=== PATIENT | female | born 1950 | race Caucasian/White ===

== ENCOUNTER 2022-07-04 19:47 | Inpatient (IN) | payer MEDICARE, MEDICAID, SELFPAY ==
[2022-07-04] VITALS (30 sets, daily range): BP systolic 99–169; BP diastolic 66–141; PULSE 88–130; RESP 13–27; TEMP 36.6–37.7; O2SAT 85–100
--- NOTE | ~2022-07-04 | US_ITS ---
EXAMINATION:US venous doppler LE BI INDICATION:Leg edema TECHNIQUE: Multiple grayscale, color flow and Doppler images of the ] and left lower extremity deep v enous systems were obtained and reviewed. COMPARISON:No prior studies for comparison. FINDINGS: The common femoral, superficial femoral and popliteal veins demonstrate normal respiratory variation, augmentation and compressibility. Color flow is also seen within the posterior tibial, pe roneal, greater saphenous and profunda veins. Evaluation of the right posterior tibial, peroneal and gastrocnemius veins limited by overlying cast and bandage. IMPRESSION: 1: No lower extremity deep venous thrombosis. Reviewed, dictated and finalized at location A.
--- NOTE | ~2022-07-04 | CT_ITS ---
EXAMINATION: CT brain wo con DATE: 07/04/2022 20:47 INDICATION: altered mental status . TECHNIQUE: Computed tomography (CT) of the head was performed without intravenous contrast. The mA wa s adjusted according to patient size. Iterative reconstruction technique was employed. The dose-lengt h product was 605.33 mGy-cm. COMPARISON: None FINDINGS: No acute intracranial hemorrhage or extra-axial fluid collection. No hydrocephalus, mass, or herniation. No acute ischemic infarct. Unremarkable dural venous sinus attenuation. No acute osseous abnormality. Right sphenoid retention cyst or polyp. Aerated secretions in the left sphenoid. Small osteoma right anterior ethmoid air cell. Remaining aerated spaces are clear. Fat stranding about the left parotid and external auditory meatus and soft tissues of the ear. Modera te atrophy and chronic white matter change. Atherosclerotic intracranial calcification. Bilateral akanksha s replacements. IMPRESSION: No acute intracranial process. Possible left parotiditis, with inflammation extending to the external auditory meatus and left inferior. Reviewed, dictated and finalized at location K. IMPRESSION: No acute intracranial process. Possible left parotiditis, with inflammation ext ending to the external auditory meatus and left inferior.
--- NOTE | ~2022-07-04 | US_ITS ---
EXAMINATION: US renal BI DATE: 07/08/2022 10:42 INDICATION: Intrinsic renal disease with chronic kidney disease stage III. TECHNIQUE: Multiple ultrasound grayscale images of the kidneys were obtained. COMPARISON: None. FINDINGS: The right kidney measures 11.9 x 5.4 x 4.6 cm. The left kidney is not visualized. The right kidney de monstrates normal parenchymal echogenicity. There is no right-sided hydronephrosis. The bladder is de compressed by a Dennison catheter. IMPRESSION: 1. Normal right kidney size. No right-sided hydronephrosis. 2. Left kidney not visualized due to the patient's body habitus. Reviewed, dictated and finalized at location A.
--- NOTE | ~2022-07-04 | US_ITS ---
EXAMINATION: US retroperitoneal duplex ltd DATE: 07/08/2022 10:41 INDICATION: Hypertension. TECHNIQUE: Multiple grayscale, color Doppler, and pulsed Doppler images of the kidneys and renal yolanda raulito were obtained. COMPARISON: None. FINDINGS: The aorta peak systolic velocity is 77 cm/s. The right renal artery peak systolic velocity is 77 cm/s in the proximal segment, 68 cm/s in the mid segment, and 33 cm/s in the distal segment. The left kesha al artery is not well visualized. IMPRESSION: 1. No Doppler evidence of right-sided renal artery stenosis. 2. Left renal artery not well visualized. Reviewed, dictated and finalized at location A.
--- NOTE | ~2022-07-04 | XR_ITS ---
EXAMINATION: XR chest 1V portable Exam Date/Time: 07/04/2022 21:20 CDT HISTORY: AMS Comparison: None available. RESULT: Lines, tubes, and devices: Left chest pacer with intact leads. Cholecystectomy clips. Lungs and pleura: Low volumes. Senescent change, otherwise clear. Cardiomediastinal silhouette: Stable. Other: No acute osseous or upper abdominal finding. IMPRESSION: No acute cardiopulmonary process. Reviewed, dictated and finalized at location K.
--- NOTE | ~2022-07-04 | XR_ITS ---
EXAM: XR knee LT 3V DATE: 07/04/2022 21:28 HISTORY: Knee pain. fx 2 months ago? . COMPARISON: None available. FINDINGS: Decreased mineralization. Transverse, mildly angulated fracture at the metadiaphysis of th e proximal left fibula, with evidence of healing change. No acute fracture or dislocation. No lytic o r blastic lesion. Osteoarthritis of the knee, severe in the medial compartment. No erosion or periost eal change. Soft tissues within normal limits. Small volume joint fluid. IMPRESSION: No acute osseous finding in the left knee. Healing proximal left fibular fracture. Reviewed, dictated and finalized at location K. IMPRESSION: No acute osseous finding in the left knee. Healing proximal left fi bular fracture.
--- NOTE | ~2022-07-04 | XR_ITS ---
EXAM: XR pelvis 1-2V DATE: 07/04/2022 21:28 HISTORY: AMS . COMPARISON: None available. FINDINGS: IVC filter. Decreased mineralization. No fracture or dislocation. No lytic or blastic lesi on. Mild degenerative change in the lumbar spine and bilateral hips. No erosion or periosteal change. Pelvic phleboliths. IMPRESSION: No acute osseous finding in the pelvis. Reviewed, dictated and finalized at location K.
--- NOTE | ~2022-07-04 | CT_ITS ---
EXAMINATION: CT facial bones w con DATE: 07/05/2022 01:47 INDICATION: Left facial swelling. TECHNIQUE: Computed tomography (CT) of the facial bones and maxillofacial region was performed with 7 5 mL Omnipaque 350 intravenous contrast. Automated exposure control and iterative reconstruction tech Sonocineque were employed. The dose-length product was 531.05 mGy-cm. COMPARISON: None. FINDINGS: There are likely changes of ocular lens replacement surgeries. There is plaque in the proxi mal internal carotid arteries with less than 50% stenosis relative to normal distal artery lumen diam eters. There is enlargement of the left parotid gland with surrounding fat stranding. There is fat st randing adjacent to right parotid gland. No sialolith. There are no pathologically enlarged lymph nod es. There is mild mucosal thickening in the paranasal sinuses. There is moderate cervical spondylosis . IMPRESSION: 1. Bilateral parotiditis, left worse than right. Reviewed, dictated and finalized at location A.
--- NOTE | ~2022-07-04 | XR_ITS ---
EXAM: XR ankle RT min 3V DATE: 07/04/2022 21:28 HISTORY: Fracture May 12 . COMPARISON: None available. FINDINGS: Detail is obscured by cast material. Oblique fracture of the distal right fibula extending roughly to the level of the joint (Lopez B fracture type). Possible transverse medial malleolus and longitudinally oriented posterior malleolar fractures, difficult to determine positively due to overl annabelle artifact. Plantar enthesopathy. IMPRESSION: Oblique distal right fibular fracture. Possible posterior and medial malleolar fractures. Reviewed, dictated and finalized at location K. IMPRESSION: Oblique distal right fibular fracture. Possible posterior and media l malleolar fractures.
--- NOTE | 2022-07-04 20:21 | ECG_ITS ---
Measurements Intervals [place] Rate: 115 P: MD: 0 QRS: -67 QRSD: 148 T: 39 QT: 348 QTc: 483 Interpretive Statements ATRIAL FIBRILLATION WITH RAPID VENTRICULAR RESPONSE VENTRICULAR PREMATURE COMPLEX RIGHT BUNDLE BRANCH BLOCK LEFT ANTERIOR FASCICULAR BLOCK ABNORMAL ECG NO PREVIOUS ECG AVAILABLE FOR COMPARISON Electronically Signed On 07-04-2022 21:51:48 CDT by Roberto Maddox D.O.
--- NOTE | 2022-07-04 20:24 | ED.GENADULT ---
HPI - General Adult General Chief complaint: Altered Mental Status Stated complaint: altered mental status all day Time Seen by Provider: 07/04/22 19:57 History of Present Illness HPI narrative: This is a 72-year-old female presenting ED for altered mental status. The patient has had a complicated clinical course over the last 2 months. On May 12 patient suffered a closed by malleolar fracture of the right lower extremity. While she was in rehab with she caught Covid on approximately May 20. On May 26 she was diagnosed with a MRSA infection blood and then later went on to develop endocarditis. She had recently completed her course of antibiotics for those illnesses and then today developed altered mental status since this morning. Patient is typically in 0 x 4. At this time she responds to voice and is A&O x1. She is unable to provide any information to focus our exam. History is taken from the patient's daughter is at bedside. Related Data Allergies Allergy/AdvReac Type Severity Reaction Status Date / Time Penicillins Allergy Intermediate Swelling Verified 07/04/22 20:45 Review of Systems Review of Systems: ROS unobtainable: Yes unobtainable due to medical condition [facility] Past Medical History Medical History (Updated 07/05/22 @ 00:34 by Abraham Anderson MD) Atrial fibrillation Bimalleolar fracture of right ankle Bipolar disorder Endocarditis Hypertension MRSA bacteremia Obesity Type 2 diabetes mellitus Social History Social History (Updated 07/04/22 @ 23:33 by Dedra Devlin PA-C) Social History: Surrogate medical decision maker: alvaro Milligan. Code status: Do not resuscitate. Additional occupation/education comments: Seamstress. Exam Narrative: APPEARANCE: Patient is laying in bed supine. She is responsive to voice. She is difficult to understand. A&O x1 Head atraumatic. EYES: PERRLA/EOMI, NOSE: Normal no drainage NECK: Supple, Trachea midline RESPIRATORY: scattered expiratory rhonchi CARDIOVASCULAR: S1S2 appreciated, tachycardic ABDOMINAL: abdomen is obese, soft, nontender nondistended MUSCULOSKELETAl: patient has a short-leg cast on her right leg. She is complaining of pain to her left knee which is chronic. NEURO: Alert. Moving 4/4 extremities SKIN:: Skin is warm and dry with no evidence of breakdown PSYCHIATRIC: Normal affect Course Course Emergency Course: this is a 72-year-old woman presenting ED with altered mental status. Over last 2 months she has had a very complicated clinical course after sustaining a right ankle fracture. He is now presenting today altered with tachycardia and a relative hypotension. Differential is broad but no infectious cause of her current encephalopathy is most likely. She has been ward-cultured. She will be given 30 cc/kilogram of normal saline. CTs of the head, chest, pelvis, left knee and right ankle x-rays have been obtained. Vital Signs Vital signs: Vital Signs Pulse Oximetry 99 07/04/22 19:51 Temperature 99.8 F H 07/04/22 20:46 Pulse Rate 90 07/05/22 00:02 Respiratory Rate 18 07/05/22 00:02 Blood Pressure 122/91 H 07/05/22 00:02 Pulse Oximetry 100 07/05/22 00:02 Oxygen Delivery Room Air 07/04/22 19:52 Medical Decision Making MDM Narrative Medical decision making narrative: This is a 72-year-old woman presenting ED with altered mental status. Over last 2 months she has had a very complicated clinical course after sustaining a right ankle fracture. He is now presenting today altered with tachycardia and a relative hypotension. Differential is broad but no infectious cause of her current encephalopathy is most likely. She has been ward-cultured. She will be given 30 cc/kilogram of normal saline. CTs of the head, chest, pelvis, left knee and right ankle x-rays have been obtained. Imaging is reviewed below. Patient's lab work was seen for elevated white blood cell cou
[2022-07-04 20:39] LABS: Basophils Absolute Auto 0.1 K/mm3 (0.0-0.1); Basophils Percent Auto 0.6 % (0.2-1.2); Eosinophils Percent Auto 0.1 % (0-4.4); Hemoglobin 12.9 g/dL (12.0-15.0); Immature Granulocyte Absolute 0.15 K/mm3 (0.00-0.031); Immature Granulocyte Percent A 0.9 % (0-0.5); Lymphocytes Absolute Auto 2.31 K/mm3 (0.9-3.2); Lymphocytes Percent Auto 14.5 % (18.3-44.2); Mean Corpuscular HGB Conc 33.1 g/dl (32-36); Mean Corpuscular Hemoglobin 35.1 pg (26-34); Mean Platelet Volume 13.6 fl (7.4-10.4); Monocytes Absolute Auto 1.8 K/mm3 (0.1-0.6); Monocytes Percent Auto 11.3 % (2.6-8.5); Neutrophils Absolute Auto 11.6 K/mm3 (1.3-6.7); Neutrophils Percent Auto 72.6 % (45.5-73.1); Nucleated Red Blood Cells Perc 0.3 % (0.0-0.2); Platelet Count Result 257 k/mm3 (150-375); Red Blood Count 3.68 M/mm3 (4.2-5.4)
[2022-07-04 20:48] LABS: INR 1.8; Lactic Acid Reflex 1.7 mmol/L (0.7-2.0); Prothrombin Time 20.1 Seconds (11.1-14.7)
[2022-07-04 20:49] LABS: Partial Thromboplastin Time 44.2 SECONDS (22.3-36.8)
[2022-07-04 20:51] LABS: Alanine Aminotransferase 22 U/L (6-35); Albumin Level 3.1 g/dL (3.5-5.1); Alkaline Phosphatase 112 U/L (38-126); Anion Gap 10 mmol/L (8-16); Aspartate Amino Transferase 24 U/L (14-36); Bilirubin,Total 0.7 mg/dL (0.2-1.3); Blood Urea Nitrogen 35 mg/dL (7-17); Calcium 10.1 mg/dL (8.4-10.2); Carbon Dioxide 21 mmol/L (22-30); Chloride 105 mmol/L (98-107); Estimated Glomerular Filt Rate 29; Glucose 165 mg/dL (65-110); Lipase 107 U/L (23-300); Sodium 136 mmol/L (137-145)
--- NOTE | 2022-07-04 20:55 | PC.NURSE ---
pt in CT.
[2022-07-04 21:02] LABS: Anisocytosis 1+ (NORMAL); Platelet Estimate Adequate (Adequate)
[2022-07-04 21:18] LABS: CRP 21.9 mg/dL (<1.0); Troponin I 0.161 ng/mL (0.000-0.034)
[2022-07-04 23:20] LABS: SARS-CoV-2 RNA PCR Negative
--- NOTE | 2022-07-04 23:30 | PM.IMHP ---
H&P: HPI History of Present Illness Date/Time: 07/04/22 23:30 Chief Complaint: Altered mental status. Narrative: This is a 72-year-old female with paroxysmal atrial fibrillation, diabetes, hypertension, and several other comorbidities who presented to the ED via EMS from [facility] for evaluation of altered mental status. Her daughter Serena provides a majority of the history given her clinical condition. She has been at the rehab center for 2 months after a lengthy stay at [facility] in [place] in which she was treated for MRSA bacteremia with right parotiditis and possible endocarditis. In fact she just finished IV vancomycin just 2 days ago. She has not been able to walk for couple of months either as she has a right bimalleolar ankle fracture. According to the daughter, she has gone down hill the past couple of months but she has not been in great health for many years. Today she was reportedly okay upon waking however as the afternoon progressed she started to become altered and lethargic. On arrival to the emergency department she had a low-grade temperature just shy of 100?. Pertinent labs include a white blood cell count of 16.0, sodium 136, BUN 35, creatinine 1.70, glucose 165, lactic acid 1.7, troponin 0.161, CRP 21.6. Urine was cloudy with 1+ leukocyte esterase, 51 to 75 WBCs, trace bacteria, budding yeast, and 30 to [address] showed no acute intracranial process but did note possible left parotiditis and on exam she did indeed have tenderness and swelling over the left parotid gland. Chest x-ray was unremarkable. She has since been admitted for IV antibiotics for suspected parotiditis. Lengthy discussion had with the patient's daughter, Serena, and at this time she does not wish for her mother to be transferred back to [facility]. Given the patient's decline in health, she would not want any heroic measures and she indicates that the patient is to be a do not resuscitate. At the time my evaluation the patient is alert and tries answer some questions which is improved according to the daughter. She complains of pain in the knees though she has had negative imaging. She also complains of pain near the left parotid gland and significant tenderness to even and mild palpation in the area. She is not having any difficulties swallowing and she does not feel short of breath. She also denies chest pain, abdominal pain, nausea, vomiting, and dysuria. Review of Systems Review of Systems: A review of systems is unable to be obtained accurately given her confusion. [facility] Past Medical History Medical History (Updated 07/05/22 @ 17:03 by Dedra Devlin PA-C) Bimalleolar fracture of right ankle Bipolar disorder Breast cancer Coronary artery disease Endocarditis Hypertension MRSA bacteremia Paroxysmal atrial fibrillation Type 2 diabetes mellitus Surgical History Surgical History (Updated 07/05/22 @ 17:03 by Dedra Devlin PA-C) History of bilateral mastectomy History of cholecystectomy History of hysterectomy History of permanent cardiac pacemaker placement Family History Family History (Updated 07/05/22 @ 17:04 by Dedra Devlin PA-C) Other Diabetes mellitus Hypertension Social History Social History Social History: Surrogate medical decision maker: alvaro Milligan. Code status: Do not resuscitate. Smoking status: Never smoker Substance use: never Substance use type: does not use Additional occupation/education comments: Seamstress. Spiritual care concerns: No Meds Home Medications and Allergies Home Medications Medication Instructions Recorded Confirmed Type Saccharomyces boulardii 250 mg 250 mg PO BID 07/05/22 07/05/22 History capsule alprazolam 0.5 mg tablet 0.5 mg PO HS 07/05/22 07/05/22 History aluminum-mag hydroxide-simethicone 30 ml PO Q6H PRN Heartburn 07/05/22 07/05/22 History 225
[2022-07-04 23:55] LABS: Add Urine Microscopic? YES; Appearance Urine Cloudy (Clear); Bilirubin Urine 1+ (Negative); Blood Urine Negative (Negative); Color Urine Brown (Yellow); Glucose Urine UA Negative (Negative); Ketones Urine Negative (Negative); Leukocyte Esterase Ur 1+ LEU/UL (Negative); Nitrate Urine Negative (Negative); Protein Urine 1+ mg/dL (Negative); Specific Grav Ur >= 1.030 (1.001-1.035); Urobilinogen Urine 0.2 mg/dL (<2.0); pH Urine 5.5 (5.0-9.0)
[2022-07-05] VITALS (28 sets, daily range): BP systolic 91–147; BP diastolic 62–117; PULSE 79–129; RESP 12–24; TEMP 36.4–36.9; O2SAT 94–100; BMI 59.8
[2022-07-05 00:08] LABS: Bacteria Urine Trace /hpf; Budding Yeast Urine Present /hpf; Hyaline Casts Urine 30-49 /lpf; Mucus Urine Rare /lpf; Squamous Epithelial Cell Urine Rare /hpf (Few); WBC Urine 51-75 /hpf
--- NOTE | 2022-07-05 01:23 | PC.NURSE ---
pt in CT.
--- NOTE | 2022-07-05 02:35 | ADMGEN ---
This patient, Kenya Oropeza, was admitted to IMU Room 204-01 on 07/05/22 at 0150. Patient/family oriented to hospital policies and general routines including ID bracelet, bed and alarms, visiting hours, pain management, procedures, bathroom and other care routines, personal items, smoking policy, room service/diet, and visiting hours. Information on how to activate the Rapid Response Team has been discussed. Patient/Family are encouraged to report perceived risks to care and to ask questions if they do not understand what they are told or what they should do.
[2022-07-05 03:29] LABS: Hemoglobin A1C 4.9 % (<5.7)
[2022-07-05 05:15] LABS: Ammonia < 9 umol/L (9-30)
[2022-07-05 05:19] LABS: Iron 27 ug/dL (37-170)
[2022-07-05 05:25] LABS: Hemoglobin 13.4 g/dL (12.0-15.0); Mean Corpuscular HGB Conc 31.2 g/dl (32-36); Mean Corpuscular Hemoglobin 35.7 pg (26-34); Mean Corpuscular Volume 114.7 fl (80-100); Mean Platelet Volume 13.1 fl (7.4-10.4); Platelet Count Result 211 k/mm3 (150-375); Red Blood Count 3.75 M/mm3 (4.2-5.4); White Blood Count 14.1 K/mm3 (4.5-10.0)
[2022-07-05 05:29] LABS: Percent Iron Saturation 16 % (20-50)
[2022-07-05] MEDS: SODIUM CHLORIDE 0.9% IV 1,000 ML 100 ML IV CONT ×2 (05:31→17:56)
[2022-07-05 05:50] LABS: Anion Gap 13 mmol/L (8-16); Blood Urea Nitrogen 33 mg/dL (7-17); Calcium 10.1 mg/dL (8.4-10.2); Carbon Dioxide 15 mmol/L (22-30); Chloride 110 mmol/L (98-107); Estimated CRCL calculation 48 ml/min; Estimated Glomerular Filt Rate 37; Glucose 148 mg/dL (65-110); Magnesium 2.1 mg/dL (1.6-2.3); Sodium 138 mmol/L (137-145)
[2022-07-05 05:54] LABS: Band Neutrophils Percent 16 % (0-6); Blastocytes 2 %; Eosinophils Absolute Manual 0.14 K/mm3 (0.02-0.5); Eosinophils Percent Manual 1 % (0-4); Lymphocytes Absolute Manual 1.69 K/mm3 (1.1-4.5); Monocytes Absolute Manual 0.28 K/mm3 (0.1-0.90); Monocytes Percent Manual 2 % (3-9); Myelocytes Percent 1 %; Neutrophils Absolute Manual 11.56 K/mm3 (1.7-7.2); Neutrophils Percent Manual 66 % (46-73); Platelet Estimate Adequate (Adequate); Total Cells Counted 100
[2022-07-05 05:55] LABS: Anisocytosis 1+ (NORMAL); Giant Platelets Present; Macrocytosis 1+ (NORMAL); Ovalocytes 1+ (NORMAL)
[2022-07-05 05:57] LABS: Burr Cells 1+ (NORMAL); Crenated RBC 1+ (NORMAL); Hypersegmented Neutrophils Present; Smudge Cells FEW; Tear Drop Cells 1+ (NORMAL)
[2022-07-05 05:59] LABS: Potassium 4.9 mmol/L (3.4-5.0)
[2022-07-05 07:51] LABS: Glucose Point of Care 141 mg/dl (65-105)
[2022-07-05] MEDS: ONDANSETRON INJ 4 MG/2 ML VIAL IV PUSH (08:14)
[2022-07-05] MEDS: ENOXAPARIN 40 MG/0.4 ML SYRINGE SUB-Q (08:14)
[2022-07-05 08:51] LABS: Troponin I 0.261 ng/mL (0.000-0.034)
--- NOTE | 2022-07-05 09:37 | ECG_ITS ---
Measurements Intervals [place] Rate: 83 P: 87 [place]: 176 QRS: -68 QRSD: 113 T: 108 QT: 353 QTc: 416 Interpretive Statements SINUS RHYTHM LEFT AXIS DEVIATION CONSIDER INFERIOR INFARCT, AGE INDETERMINATE ANTEROLATERAL INFARCT, AGE INDETERMINATE ST-T WAVE ABNORMALITY IN HIGH LATERAL LEADS- CONSIDER ISCHEMIA ABNORMAL ECG COMPARED TO ECG 07/04/2022 20:25:22 SINUS RHYTHM NOW PRESENT MYOCARDIAL INFARCT FINDING NOW PRESENT Electronically Signed On 07-05-2022 13:43:26 CDT by Roberto Maddox D.O.
[2022-07-05 11:49] LABS: Glucose Point of Care 151 mg/dl (65-105)
--- NOTE | 2022-07-05 11:51 | PM.CNCAR ---
Assessment and Plan Assessment and plan (1) Atrial fibrillation: Code(s): I48.91 - Unspecified atrial fibrillation Status: Acute (2) Sepsis: Code(s): A41.9 - Sepsis, unspecified organism Status: Acute (3) Type 2 diabetes mellitus: Code(s): E11.9 - Type 2 diabetes mellitus without complications Status: Acute (4) Elevated troponin: Code(s): R77.8 - Other specified abnormalities of plasma proteins Status: Acute (5) Parotiditis: Code(s): K11.20 - Sialoadenitis, unspecified Status: Acute (6) Metabolic encephalopathy: Code(s): G93.41 - Metabolic encephalopathy Status: Acute (7) Hypertension: Code(s): I10 - Essential (primary) hypertension Status: Acute Plan No signs or symptoms consistent with acute coronary syndrome at this time. Elevated troponins likely in the setting of atrial fibrillation with RVR. Patient remains in sinus rhythm since this morning. Will continue to monitor on telemetry. Recommend to start therapeutic anticoagulation given the atrial fibrillation if no bleeding issues. Would restart home dose of sotalol. Obtain transthoracic echocardiogram. History of Present Illness History of Present Illness Consult date/time: 07/05/22 11:51 Requesting physician: Rosaura Moise DO Consult reason: atrial fibrillation Reason For Visit: sepsis/uti Narrative: Patient is a 72-year-old female admitted with acute encephalopathy and parotiditis. Limited history is obtained from patient, patient can state her name and date of , but does not answer other questions. No family at bedside present. On admission patient noted with mildly elevated troponins, and initial ECG showed atrial fibrillation with RVR with right bundle branch block. Patient converted to sinus and has been in sinus rhythm since this morning. Patient was admitted at [facility] in May. Review of those records show that she was admitted on May 26 with facial cellulitis, and was found to have a right-sided parotitis. Patient was also found to have MRSA septicemia, and she was started on IV vancomycin. Blood cultures were negative. Patient reportedly had a transthoracic echocardiogram which was unremarkable however the valves were not clearly seen. Patient also had healthcare associated pneumonia and noted to be in acute kidney injury. It was recommended the patient received 14 days of IV antibiotics. Was recommended that she obtain an outpatient transesophageal echocardiogram. Patient was transferred to a long-term facility upon discharge. Cardiac medications include Eliquis 5 mg, atorvastatin 40 mg, diltiazem 300 mg, losartan 25 mg, ranolazine 1000 mg, sotalol 80 mg. Per outside records patient was diagnosed with COVID-19 on May 20 Patient also noted to have a pacemaker For the cardiology consult notes from [facility], they did not recommend that CHELA at that time due to complicated medical issues and difficulty in swallowing; although she has a permanent pacemaker in place, they decided not to pursue transesophageal echocardiogram given negative blood cultures. Review of Systems Review of Systems: ROS unobtainable: Yes unobtainable due to mental status PMFSH Past Medical History Medical History Atrial fibrillation Bimalleolar fracture of right ankle Bipolar disorder Endocarditis Hypertension MRSA bacteremia Obesity Type 2 diabetes mellitus Social History Social History Social History: Surrogate medical decision maker: alvaro Milligan. Code status: Do not resuscitate. Smoking status: Never smoker Substance use: never Substance use type: does not use Additional occupation/education comments: Seamstress. Spiritual care concerns: No Meds Home Medications and Allergies Home Me
[2022-07-05] MEDS: MORPHINE SULFATE (*CRX) 2 MG/ML INJ IV PUSH (12:10)
[2022-07-05] MEDS: ENOXAPARIN 60 MG/0.6 ML SYRINGE 50 MG SUB-Q (12:10)
--- NOTE | 2022-07-05 14:58 | PCNSR ---
On 07/05/22, the student, Ryan Talley, provided care and [facility]. I have reviewed the student's documentation and agree with the findings.
[2022-07-05 16:47] LABS: Glucose Point of Care 141 mg/dl (65-105)
[2022-07-05] MEDS: SOTALOL HCL 80 MG TABLET PO (20:15)
[2022-07-05] MEDS: ALPRAZolam (*CRX) 0.5 MG TABLET PO (20:16)
[2022-07-05] MEDS: RANOLAZINE 500 MG TAB.ER.12H 1000 MG PO (20:17)
[2022-07-05] MEDS: traZODone HCL 50 MG TABLET 100 MG PO (20:17)
[2022-07-05] MEDS: MUPIROCIN 2% OINT 22 GM TUBE 1 APPLIC EACH NARE (20:18)
[2022-07-05] MEDS: ATORVASTATIN 40 MG TABLET PO (20:18)
[2022-07-05 20:21] LABS: Glucose Point of Care 128 mg/dl (65-105)
--- NOTE | 2022-07-05 20:51 | ECG_ITS ---
Measurements Intervals [place] Rate: 88 P: 61 [place]: 170 QRS: -80 QRSD: 109 T: 166 QT: 412 QTc: 499 Interpretive Statements SINUS RHYTHM LEFT AXIS DEVIATION ANTEROLATERAL INFARCT, AGE INDETERMINATE INFERIOR INFARCT, AGE INDETERMINATE ST-T WAVE ABNORMALITY IN ANT/HIGH LAT LEADS- CONSIDER ISCHEMIA BASELINE ARTIFACT- I, II, III, AVR, AVL, AVF, V1-V2 ABNORMAL ECG COMPARED TO ECG 07/05/2022 10:16:00 NO SIGNIFICANT CHANGES Electronically Signed On 07-06-2022 6:46:12 CDT by Roberto Maddox D.O.
[2022-07-06] VITALS (18 sets, daily range): BP systolic 96–134; BP diastolic 43–86; PULSE 61–84; RESP 18–23; TEMP 36.2–37; O2SAT 95–100
--- NOTE | 2022-07-06 | ECHO_ITS ---
Patient Info Name: Kenya Oropeza Age: 72 years : 1950 Gender: Female Ht: 64 in Wt: 364 lbs BSA: 2.85 m2 HR: 66 bpm BP: 96 / 66 mmHg Heart Rhythm: Sinus Rhythm Technical Quality: Fair Exam Date: 07/06/2022 4:13 PM Exam Location: [facility] Pulmonary Patient Status: Inpatient Admit Date: 07/05/2022 Staff Ordering Physician: Nicko Merlos MD (juma/willow) [employer] Articles: Denise Spencer RDCS Attending Provider: Mati Berry MD Referring Physician: Gaurang ARMENTA; Exam Type: CA echo doppler color flow Study Info Indications - history of recent presumed endocarditis Complete two-dimensional, color flow and Doppler transthoracic echocardiogram is performed. Summary 1. Complete two-dimensional, color flow and Doppler transthoracic echocardiogram is performed. 2. Left ventricular systolic function is severely reduced, estimated at 15-20%. 3. Regional wall motion abnormalities concerning for LAD infarction or stress cardiomyopathy. 4. Valves not well visualized. Cannot rule out valvular vegetation. Recommendations * Recommend limited echo with contrast for better visualization of endocardial borders. Left Ventricle There is hypokinesis-akinesis of the mid inferolateral, apical lateral, apical septum, mid anteroseptum, apical inferior, apical anterior murillo. There is hypokinesis of the mid inferoseptum, mid anterolateral, mid inferior and mid anterior murillo. The apical cap is akinetic. Regional wall motion abnormalities concerning for LAD infarction or stress cardiomyopathy. Left ventricular chamber dimension is normal. Left ventricular systolic function is severely reduced, estimated at 15-20%. There is mildly increased left ventricular wall thickness. The left ventricular diastolic function is grade II diastolic dysfunction. Right Ventricle Right ventricular chamber dimension is normal. Right ventricular systolic function is normal. Left Atria Left atrial chamber dimension is mildly enlarged. Right Atria Linear artifact in the right atrium suggestive of catheter(s), pacemaker lead(s), or ICD lead(s). Right atrial chamber dimension is mildly enlarged. Aortic Valve The aortic valve is not well visualized. There is trace aortic valve regurgitation. Cannot rule out aortic valve vegetation visualized. Pulmonic Valve The pulmonic valve is not well visualized. Cannot rule out pulmonic valve vegetation visualized. Mitral Valve Mitral valve appears grossly normal. There is no mitral valve stenosis. There is mild mitral valve regurgitation. Cannot rule out mitral valve vegetation visualized. Tricuspid Valve The tricuspid valve leaflets are not well visualized. There is mild tricuspid valve regurgitation. Cannot rule out tricuspid valve vegetation visualized. Pericardium/Pleural There is small pericardial effusion. Aorta The aortic root size at the sinus of Valsalva is normal. The prox ascending aorta size is normal. Left Ventricular Outflow Tract Name Value Normal LVOT 2D LVOT Diameter 1.9 cm LVOT Doppler LVOT Peak Gradient 4 mmHg LVOT Mean
[2022-07-06] MEDS: SODIUM CHLORIDE 0.9% IV 1,000 ML 100 ML IV CONT ×2 (04:00→12:50)
[2022-07-06] MEDS: SUCRALFATE 1 GM TABLET PO ×3 (06:36→17:42)
[2022-07-06] MEDS: LEVOTHYROXINE SODIUM 75 MCG TABLET PO (06:36)
[2022-07-06 08:18] LABS: Glucose Point of Care 102 mg/dl (65-105)
[2022-07-06] MEDS: TOPIRAMATE 25 MG TABLET 50 MG PO ×2 (08:41→17:41)
[2022-07-06] MEDS: CALCIUM CARBONATE (OSCAL) 500 MG TABLET 1000 MG PO (08:41)
[2022-07-06] MEDS: SACCHAROMYCES BOULARDII 250 MG CAPSULE PO ×2 (08:42→17:43)
[2022-07-06] MEDS: POTASSIUM CHLORIDE 20 MEQ TABLET.ER 40 MEQ PO ×3 (08:42→17:43)
[2022-07-06] MEDS: GABAPENTIN 100 MG CAPSULE PO ×2 (08:42→17:45)
[2022-07-06] MEDS: CHOLECALCIFEROL 1,000 UNITS TABLET 1000 UNITS PO (08:42)
[2022-07-06] MEDS: MAGNESIUM OXIDE 400 MG TABLET PO (08:42)
[2022-07-06] MEDS: FLUoxetine HCL 20 MG CAPSULE PO (08:42)
[2022-07-06] MEDS: LOSARTAN POTASSIUM 25 MG TABLET PO (08:42)
[2022-07-06] MEDS: SOTALOL HCL 80 MG TABLET PO ×2 (08:42→21:26)
[2022-07-06] MEDS: PANTOPRAZOLE 40 MG TABLET PO (08:43)
[2022-07-06] MEDS: CYANOCOBALAMIN 1,000 MCG TABLET 1000 MCG PO (08:43)
[2022-07-06] MEDS: FUROSEMIDE 80 MG TABLET PO (08:43)
[2022-07-06] MEDS: FOLIC ACID 1 MG TABLET PO (08:43)
[2022-07-06] MEDS: FERROUS SULFATE 324 MG TABLET PO ×2 (08:43→17:44)
[2022-07-06] MEDS: APIXABAN 5 MG TABLET PO ×2 (08:44→21:25)
[2022-07-06] MEDS: MUPIROCIN 2% OINT 22 GM TUBE 1 APPLIC EACH NARE ×2 (08:44→21:26)
[2022-07-06] MEDS: buPROPion HCL SR (12 HR) 150 MG TAB PO (08:44)
[2022-07-06 09:30] LABS: CRP 17.9 mg/dL (<1.0)
--- NOTE | 2022-07-06 11:09 | PC.NURSE ---
Dr. Pacheco says that he does not need consulted on this patient since she is already being followed outpatient by Dr. Shrestha. Call Dr. Shrestha from [facility] if any recommendations are needed.
[2022-07-06 12:52] LABS: Glucose Point of Care 86 mg/dl (65-105)
--- NOTE | 2022-07-06 14:25 | PM.PNCARD ---
Progress Note: A&P Assessment and Plan (1) Atrial fibrillation: Code(s): I48.91 - Unspecified atrial fibrillation Status: Acute (2) Hypertension: Code(s): I10 - Essential (primary) hypertension Status: Acute (3) Parotiditis: Code(s): K11.20 - Sialoadenitis, unspecified Status: Acute (4) Metabolic encephalopathy: Code(s): G93.41 - Metabolic encephalopathy Status: Acute (5) Elevated troponin: Code(s): R77.8 - Other specified abnormalities of plasma proteins Status: Acute (6) Type 2 diabetes mellitus: Code(s): E11.9 - Type 2 diabetes mellitus without complications Status: Acute Plan Continue with home oral cardiac meds if able to tolerate oral intake without any issue. Given concern for endocarditis at her previous hospitalization and recommendation to obtain outpatient CHELA when she was discharged, if her mental status improves here and is able to follow commands, will complete CHELA here prior to discharge. Blood cultures remain negative at this time. Subjective Date/time seen: 07/06/22 14:25 Interval history: Patient seen and examined this afternoon. Patient remains mentally altered, seems very sleepy. States she feels better when asked how she is doing, but otherwise, unable to obtain any other history from patient due to mental status. Has been restarted on her home oral cardiac medications - per nursing staff, patient has been able to swallow medications without issue. Review of Systems Review of Systems: ROS unobtainable: Yes other (ROS very limited due to mental status.) Exam Const: Other: Mentally altered. Resp: Effort & Inspection: normal respiratory effort Auscultation: diminished lung sounds Cardio: Rate: regular rate Rhythm: regular rhythm Heart sounds: no murmurs GI: GI Palp: Yes Soft to palpation and No Tenderness to palpation present (GI) Neuro: Other: Altered mental status. Objective Data Vital Signs Vital Signs: Vital Signs - 24 hr 07/05/22 16:00 07/05/22 16:00 07/05/22 16:00 Temperature 36.4 C Pulse Rate 129 H 124 H Respiratory Rate 16 Blood Pressure 111/78 Pulse Oximetry 98 Oxygen Delivery Room Air 07/05/22 18:00 07/05/22 20:15 07/05/22 20:00 Temperature Pulse Rate 119 H 121 H Respiratory Rate Blood Pressure Pulse Oximetry Oxygen Delivery Room Air 07/05/22 20:00 07/05/22 22:00 07/05/22 23:32 Temperature 36.7 C Pulse Rate 116 H 84 83 Respiratory Rate 18 Blood Pressure 110/62 Pulse Oximetry 96 Oxygen Delivery 07/05/22 20:00 07/06/22 00:00 07/06/22 02:00 Temperature 36.5 C Pulse Rate 116 H 80 79 Respiratory Rate 20 Blood Pressure 119/89 Pulse Oximetry 94 Oxygen Delivery 07/06/22 04:00 07/06/22 00:00 07/06/22 04:00 Temperature 36.6 C Pulse Rate 61 Respiratory Rate 18 Blood Pressure 134/86 Pulse Oximetry 97 Oxygen Delivery Room Air Room Air 07/06/22 04:00 07/06/22 06:00 07/06/22 08:25 Temperature Pulse Rate 82 81 Respiratory Rate Blood Pressure Pulse Oximetry 97 Oxygen Delivery Room Air 07/06/22 08:27 07/06/22 08:42 07/06/22 08:00 Temperature 36.2 C L Pulse Rate 84 82 Respiratory Rate 20 Blood Pressure 105/63 Pulse Oximetry 99 Oxygen Delivery Room Air 07/06/22 08:00 07/06/22 10:00 07/06/22 12:00 Temperature Pulse Rate 80 78 73 Respiratory Rate Blood Pressure Pulse Oximetry Oxygen Delivery 07/06/22 13:01 07/06/22 12:00 07/06/22 13:57 Temperature 36.8 C Pulse Rate 73 66 Respiratory Rate 20 Blood Pressure 96/55 L Pulse Oximetry 100 Oxygen Delivery Room Air Intake/Output Intake/Output: Intake & Output 07/03/22 07/04/22 07/05/22 07/06/22 23:59 23:59 23:59 23:59 Intake Total 50 6300 2340 Output Total 200 Balance 50 6100 2340 Meds/Results Medications: Active Medications Generic Name Dose Route Start Last Ad
--- NOTE | 2022-07-06 15:53 | PM.CNOR ---
Assessment and Plan Assessment and plan (1) Bimalleolar fracture of right ankle: Qualifiers: Encounter type: subsequent encounter Fracture type: closed Fracture healing: with routine healing Qualified Code(s): S82.841D - Displaced bimalleolar fracture of right lower leg, subsequent encounter for closed fracture with routine healing Code(s): S82.841A - Displaced bimalleolar fracture of right lower leg, initial encounter for closed fracture Status: Acute Assessment and Plan: Asked to see patient for right ankle injury. By report patient broke the right ankle 8 weeks ago. She was placed into a short-leg cast. She was supposed to follow-up with her orthopedic surgeon yesterday but was admitted here to the hospital with cardiac disorder and unable to keep her appointment. Radiographs reviewed which show near anatomic alignment of the fracture and the ankle mortise with some healing noted. Cast in place and in good condition. Should be far enough now with enough healing that we can remove the cast. Plan to use a fracture boot when up out of bed with weight-bearing as tolerated. Start range of motion exercises when able to participate in therapy. May follow up as needed or with her regular orthopedic surgeon once she is discharged. History of Present Illness HPI Consult date: 07/06/22 Requesting physician: Rosaura Moise DO Consult reason: fracture ( Right ankle) Chief complaint: sepsis/uti Review of Systems Constitutional: Constitutional: Denies fever(s) Eyes: Eyes: Denies blurry vision ENT: Reports Normal hearing present Cardiovascular: Cardiovascular: Denies chest pain and Denies dyspnea Respiratory: Respiratory: Denies dyspnea and Denies wheezing Gastrointestinal: Gastrointestinal: Denies abdominal pain Genitourinary: Genitourinary: Denies urinary urgency Musculoskeletal: Musculoskeletal: Reports as per HPI and Denies numbness Integumentary/Breasts: Skin/Breast: Denies changing lesions and Denies sores Neurologic: Reports Normal hearing present, Denies behavioral changes, Denies confusion, Denies numbness and Denies convulsions Psychiatric: Psychiatric: Denies behavioral changes, Denies confusion and Denies hallucinations Endocrine: Endocrine: Denies heat intolerance Hematologic/Lymphatic: Hematologic/Lymphatic: Denies easy bleeding Allergic/Immunologic: Allergic/Immunologic: Denies wheezing PMFSH Past Medical History Medical History (Updated 07/06/22 @ 15:55 by Suraj Leung MD) Bimalleolar fracture of right ankle Bipolar disorder Breast cancer Coronary artery disease Endocarditis Hypertension MRSA bacteremia Paroxysmal atrial fibrillation Type 2 diabetes mellitus Surgical History Surgical History History of bilateral mastectomy History of cholecystectomy History of hysterectomy History of permanent cardiac pacemaker placement Family History Family History Other Diabetes mellitus Hypertension Social History Social History Social History: Surrogate medical decision maker: alvaro Milligan. Code status: Do not resuscitate. Smoking status: Never smoker Substance use: never Substance use type: does not use Additional occupation/education comments: Seamstress. Spiritual care concerns: No Meds Home Medications and Allergies Home Medications Medication Instructions Recorded Confirmed Type Saccharomyces boulardii 250 mg 250 mg PO BID 07/05/22 07/05/22 History capsule alprazolam 0.5 mg tablet 0.5 mg PO HS 07/05/22 07/05/22 History aluminum-mag hydroxide-simethicone 30 ml PO Q6H PRN Heartburn 07/05/22 07/05/22 History 225 mg-200 mg-25 mg/5 mL oral susp apixaban 5 mg tablet (Eliquis) 5 mg PO BID 07/05/22 07/05/22 History atorvastatin 40 mg tablet 40 mg PO HS 0
[2022-07-06 16:25] LABS: Glucose Point of Care 89 mg/dl (65-105)
--- NOTE | 2022-07-06 17:47 | WPDCN ---
Assessment and Plan Assessment and plan (1) Parotiditis: Code(s): K11.20 - Sialoadenitis, unspecified Status: Acute Assessment and Plan: Continue broad-spectrum narrow with culture culture obtained x2 today. Counseled ENT with any further questions. Likely culprit Gram-positive organism could be MRSA. Recommend increased hydration as well as constant compress the patient stated she will put a warm compress against the left parotid gland and at least put her head pressure on it. Recommend nursing milk it several times per shift as well this will be very very painful for the patient. 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 Patient on broad-spectrum including anti MRSA right now. MRSA likely culprit or potential culprit given patient is from a [place] [facility]. CT demonstrates no obvious abscess. White count down trended although no white count today. Per nursing report patient is again on broad-spectrum cutting vancomycin. [facility] Past Medical History Medical History (Updated 07/06/22 @ 15:55 by Suraj Leung MD) Bimalleolar fracture of right ankle Bipolar disorder Breast cancer Coronary artery disease Endocarditis Hypertension MRSA bacteremia Paroxysmal atrial fibrillation Type 2 diabetes mellitus Surgical History Surgical History History of bilateral mastectomy History of cholecystectomy History of hysterectomy History of permanent cardiac pacemaker placement Family History Family History Other Diabetes mellitus Hypertension Social History Social History Social History: Surrogate medical decision maker: alvaro Milligan. Code status: Do not resuscitate. Smoking status: Never smoker Substance use: never Substance use type: does not use Additional occupation/education comments: Seamstress. Spiritual care concerns: No Meds Home Medications and Allergies Home Medications Medication Instructions Recorded Confirmed Type Saccharomyces boulardii 250 mg 250 mg PO BID 07/05/22 07/05/22 History capsule alprazolam 0.5 mg tablet 0.5 mg PO HS 07/05/22 07/05/22 History aluminum-mag hydroxide-simethicone 30 ml PO Q6H PRN Heartburn 07/05/22 07/05/22 History 225 mg-200 mg-25 mg/5 mL oral susp apixaban 5 mg tablet (Eliquis) 5 mg PO BID 07/05/22 07/05/22 History atorvastatin 40 mg tablet 40 mg PO HS 07/05/22 07/05/22 History bisacodyl 10 mg rectal suppository 10 mg RECTAL DAILY PRN Constipation 07/05/22 07/05/22 History bupropion HCl 150 mg tablet,12 hr 150 mg PO DAILY 07/05/22 07/05/22 History sustained-release calcium 600 mg capsule 1,200 mg PO DAILY 07/05/22 07/05/22 History cholecalciferol (vitamin D3) 25 25 mcg PO DAILY 07/05/22 07/05/22 History mcg (1,000 unit) tablet cyanocobalamin (vitamin B-12) 1,000 mcg PO DAILY 07/05/22 07/05/22 History 1,000 mcg tablet diltiazem HCl 300 mg 300 mg PO DAILY 07/05/22 07/05/22 History capsule,extended release 24 hr esomeprazole magnesium 20 mg 20 mg PO DAILY 07/05/22 07/05/22 History capsule,delayed release ferrous sulfate 325 mg (65 mg 325 mg PO BID 07/05/22 07/05/22 History iron) tablet fluoxetine 20 mg capsule 20 mg PO DAILY 07/05/22 07/05/22 History folic acid 1 mg tablet 1 mg PO DAILY 07/05/22 07/05/22 History furosemide 80 mg tablet 80 mg PO DAILY 07/05/22 07/05/22 History gabapentin 100 mg capsule 100 mg PO BID 07/05/22 07/05/22 History hydrocodone 5 mg-acetaminophen 325 5 - 325 tablet PO BID 07/05/2207/05
[2022-07-06 18:51] LABS: Basophils Absolute Auto 0.1 K/mm3 (0.0-0.1); Basophils Percent Auto 0.6 % (0.2-1.2); Eosinophils Absolute Auto 0.2 K/mm3 (0-0.3); Hematocrit 28.9 % (37.0-47.0); Hemoglobin 9.3 g/dL (12.0-15.0); Immature Granulocyte Absolute 0.16 K/mm3 (0.00-0.031); Immature Granulocyte Percent A 1.4 % (0-0.5); Lymphocytes Absolute Auto 2.06 K/mm3 (0.9-3.2); Lymphocytes Percent Auto 18.6 % (18.3-44.2); Mean Corpuscular HGB Conc 32.2 g/dl (32-36); Mean Corpuscular Hemoglobin 35.4 pg (26-34); Mean Corpuscular Volume 109.9 fl (80-100); Mean Platelet Volume 12.6 fl (7.4-10.4); Monocytes Absolute Auto 1.1 K/mm3 (0.1-0.6); Monocytes Percent Auto 9.7 % (2.6-8.5); Neutrophils Absolute Auto 7.5 K/mm3 (1.3-6.7); Neutrophils Percent Auto 67.7 % (45.5-73.1); Nucleated Red Blood Cells Perc 0.3 % (0.0-0.2); Platelet Count Result 233 k/mm3 (150-375); Red Blood Count 2.63 M/mm3 (4.2-5.4); Red Cell Distribution Width 15.5 % (11.5-14.5); White Blood Count 11.1 K/mm3 (4.5-10.0)
--- NOTE | 2022-07-06 18:56 | PM.IMPN ---
Progress Note: A&P Assessment and Plan (1) Parotiditis: Code(s): K11.20 - Sialoadenitis, unspecified Status: Acute Assessment and Plan: Improving, continue antibiotics, appreciate ENT consult, compresses and milking of parotid gland (2) Metabolic encephalopathy: Code(s): G93.41 - Metabolic encephalopathy Status: Acute Assessment and Plan: Anticipate this to improve with time and antibiotics (3) Elevated troponin: Code(s): R77.8 - Other specified abnormalities of plasma proteins Status: Acute Assessment and Plan: Do not suspect ACS, appreciate cardiology consultation, anticipate needing CHELA prior to discharge (4) Type 2 diabetes mellitus: Code(s): E11.9 - Type 2 diabetes mellitus without complications Status: Acute Assessment and Plan: A1c is 4.9, no need for Accu-Cheks or insulin (5) Sepsis: Code(s): A41.9 - Sepsis, unspecified organism Status: Acute Assessment and Plan: Improving, follow-up cultures (6) Atrial fibrillation: Code(s): I48.91 - Unspecified atrial fibrillation Status: Acute Assessment and Plan: Continue home medications, rate controlled now (7) Bimalleolar fracture of right ankle: Qualifiers: Encounter type: subsequent encounter Fracture type: closed Fracture healing: with routine healing Qualified Code(s): S82.841D - Displaced bimalleolar fracture of right lower leg, subsequent encounter for closed fracture with routine healing Code(s): S82.841A - Displaced bimalleolar fracture of right lower leg, initial encounter for closed fracture Status: Acute Assessment and Plan: Appreciate orthopedic consultation, x-ray show good healing, cast can be removed and patient can be placed in a fracture boot for weight-bearing as tolerated with PT Plan DVT prophylaxis with Eliquis GI prophylaxis not indicated Code status full code Subjective Date/time seen: 07/06/22 18:56 Interval history: Patient is somewhat somnolent. No overnight events noted, no fevers or chills. No nausea vomiting or diarrhea. Review of Systems Review of Systems: ROS unobtainable: Yes unobtainable due to mental status Exam Narrative: General: Somnolent HEENT: Atraumatic, normocephalic, mucous membranes moist, swelling in bilateral parotid areas CV: Regular rate and rhythm, S1, S2 Lungs: Clear to auscultation bilaterally, no rales or crackles noted, no wheezes, good air entry Abdomen: Soft, nontender, nondistended Extremities: Normal to inspection Skin: No rashes noted, no lesions or wounds seen Objective Data Vital Signs Vital Signs: Vital Signs - 24 hr 07/05/22 20:15 07/05/22 20:00 07/05/22 20:00 Temperature Pulse Rate 121 H 116 H Respiratory Rate Blood Pressure Pulse Oximetry Oxygen Delivery Room Air 07/05/22 22:00 07/05/22 23:32 07/05/22 20:00 Temperature 98.0 F 97.7 F Pulse Rate 84 83 116 H Respiratory Rate 18 20 Blood Pressure 110/62 119/89 Pulse Oximetry 96 94 Oxygen Delivery 07/06/22 00:00 07/06/22 02:00 07/06/22 04:00 Temperature 97.9 F Pulse Rate 80 79 61 Respiratory Rate 18 Blood Pressure 134/86 Pulse Oximetry 97 Oxygen Delivery 07/06/22 00:00 07/06/22 04:00 07/06/22 04:00 Temperature Pulse Rate 82 Respiratory Rate Blood Pressure Pulse Oximetry Oxygen Delivery Room Air Room Air 07/06/22 06:00 07/06/22 08:25 07/06/22 08:27 Temperature 97.2 F L Pulse Rate 81 84 Respiratory Rate 20 Blood Pressure 105/63 Pulse Oximetry 97 99 Oxygen Delivery Room Air 07/06/22 08:42 07/06/22 08:00 07/06/22 08:00 Temperature Pulse Rate 82 80 Respiratory Rate Blood Pressure Pulse Oximetry Oxygen Delivery Room Air 07/06/22 10:00 07/06/22 12:00 07/06/22 13:01 Temperature 98.3 F Pulse Rate 78 73 73 Respiratory Rate 20 Blood Pressure 96/55 L Pulse
[2022-07-06 19:00] LABS: Alanine Aminotransferase 20 U/L (6-35); Albumin Level 2.3 g/dL (3.5-5.1); Alkaline Phosphatase 93 U/L (38-126); Anion Gap 6 mmol/L (8-16); Aspartate Amino Transferase 39 U/L (14-36); Bilirubin,Total 0.3 mg/dL (0.2-1.3); Blood Urea Nitrogen 28 mg/dL (7-17); Calcium 8.6 mg/dL (8.4-10.2); Carbon Dioxide 19 mmol/L (22-30); Chloride 110 mmol/L (98-107); Estimated CRCL calculation 48 ml/min; Estimated Glomerular Filt Rate 37; Glucose 88 mg/dL (65-110); Potassium 4.5 mmol/L (3.4-5.0); Sodium 135 mmol/L (137-145)
[2022-07-06] MEDS: RANOLAZINE 500 MG TAB.ER.12H 1000 MG PO (21:25)
[2022-07-06] MEDS: ATORVASTATIN 40 MG TABLET PO (21:26)
[2022-07-07] VITALS (14 sets, daily range): BP systolic 103–130; BP diastolic 50–66; PULSE 60–110; RESP 18–20; TEMP 36.2–36.8; O2SAT 97–100
--- NOTE | 2022-07-07 | ECHO_ITS ---
Patient Info Name: Kenya Oropeza Age: 72 years : 1950 Gender: Female Ht: 64 in Wt: 348 lbs BSA: 2.78 m2 HR: 67 bpm BP: 110 / 82 mmHg Heart Rhythm: Sinus Rhythm Technical Quality: Fair Exam Date: 07/07/2022 12:58 PM Exam Location: [facility] Pulmonary Exam Room: [facility] Patient Status: Inpatient Admit Date: 07/05/2022 Staff Ordering Physician: Mati Berry MD Head Coach: Radha Segura RDCS Attending Provider: Mati Berry MD Exam Type: CA echo limited w contrast Study Info Indications - eval lv fxn Limited two-dimensional transthoracic echocardiogram is performed with contrast. Contrast/Agitated Saline Contrast/Ag. Saline: Definity Amount: 2.00 ml Administered By: Radha Segura [facility] Existing IV Access: Yes IV Access Condition: patent with no signs of infiltration Summary 1. Limited study done with contrast for better visualization of endocardial borders. 2. Left ventricular systolic function is severely reduced, estimated at 15-20%. 3. There is no thrombus visualized in the left ventricle. 4. Regional wall motion abnormality concerning for LAD infarction or stress cardiomyopathy. Left Ventricle Regional wall motion abnormality concerning for LAD infarction or stress cardiomyopathy. Left ventricular systolic function is severely reduced, estimated at 15-20%. There is no thrombus visualized in the left ventricle. Report Signatures
[2022-07-07] MEDS: SODIUM CHLORIDE 0.9% IV 1,000 ML 100 ML IV CONT ×3 (00:29→21:08)
--- NOTE | 2022-07-07 02:29 | ECG_ITS ---
Measurements Intervals [place] Rate: 103 P: AL: 0 QRS: -33 QRSD: 94 T: 195 QT: 410 QTc: 537 Interpretive Statements ATRIAL FIBRILLATION WITH RAPID VENTRICULAR RESPONSE ELECTRONIC VENTRICULAR PACEMAKER COMPLEXES LEFT AXIS DEVIATION RIGHT BUNDLE BRANCH BLOCK CONSIDER ANTEROLATERAL INFARCT, AGE INDETERMINATE CONSIDER INFERIOR INFARCT, AGE INDETERMINATE ST-T WAVE ABNORMALITY IN ANTEROLAT/HIGH LAT LEADS- CONSIDER ISCHEMIA BASELINE ARTIFACT- I, II, V3 ABNORMAL ECG COMPARED TO ECG 07/05/2022 20:06:17 ATRIAL FIBRILLATION NOW PRESENT ST (T WAVE) DEVIATION NOW PRESENT Electronically Signed On 07-07-2022 8:04:44 CDT by Roberto Maddox D.O.
[2022-07-07] MEDS: SOTALOL HCL 80 MG TABLET PO (03:11)
--- NOTE | 2022-07-07 05:30 | ECG_ITS ---
Measurements Intervals [place] Rate: 72 P: 86 AR: 171 QRS: -44 QRSD: 101 T: 207 QT: 415 QTc: 455 Interpretive Statements SINUS RHYTHM LEFT AXIS DEVIATION LOW QRS VOLTAGE IN PRECORDIAL LEADS POOR R WAVE PROGRESSION, ANTERIOR LEADS ST-T WAVE ABNORMALITY IN DIFFUSE LEADS- CONSIDER ISCHEMIA BASELINE ARTIFACT- I, II, AVR ABNORMAL ECG COMPARED TO ECG 07/07/2022 02:34:39 SINUS RHYTHM NOW PRESENT Electronically Signed On 07-07-2022 7:51:51 CDT by Roberto Maddox D.O.
[2022-07-07] MEDS: LEVOTHYROXINE SODIUM 75 MCG TABLET PO (05:52)
[2022-07-07] MEDS: SUCRALFATE 1 GM TABLET PO ×3 (05:52→17:58)
[2022-07-07 06:03] LABS: Basophils Absolute Auto 0.1 K/mm3 (0.0-0.1); Basophils Percent Auto 0.5 % (0.2-1.2); Eosinophils Absolute Auto 0.2 K/mm3 (0-0.3); Eosinophils Percent Auto 2.6 % (0-4.4); Hematocrit 27.8 % (37.0-47.0); Hemoglobin 8.9 g/dL (12.0-15.0); Immature Granulocyte Absolute 0.19 K/mm3 (0.00-0.031); Immature Granulocyte Percent A 2.1 % (0-0.5); Lymphocytes Absolute Auto 1.85 K/mm3 (0.9-3.2); Lymphocytes Percent Auto 20.2 % (18.3-44.2); Mean Corpuscular Hemoglobin 35.5 pg (26-34); Mean Corpuscular Volume 110.8 fl (80-100); Mean Platelet Volume 12.8 fl (7.4-10.4); Monocytes Percent Auto 10.9 % (2.6-8.5); Neutrophils Absolute Auto 5.8 K/mm3 (1.3-6.7); Neutrophils Percent Auto 63.7 % (45.5-73.1); Nucleated Red Blood Cells Perc 0.3 % (0.0-0.2); Platelet Count Result 225 k/mm3 (150-375); Red Blood Count 2.51 M/mm3 (4.2-5.4); Red Cell Distribution Width 15.6 % (11.5-14.5); White Blood Count 9.2 K/mm3 (4.5-10.0)
[2022-07-07 06:12] LABS: Alanine Aminotransferase 18 U/L (6-35); Albumin Level 2.2 g/dL (3.5-5.1); Alkaline Phosphatase 87 U/L (38-126); Anion Gap 7 mmol/L (8-16); Aspartate Amino Transferase 29 U/L (14-36); Bilirubin,Total 0.3 mg/dL (0.2-1.3); Blood Urea Nitrogen 25 mg/dL (7-17); Calcium 8.3 mg/dL (8.4-10.2); Carbon Dioxide 20 mmol/L (22-30); Chloride 111 mmol/L (98-107); Estimated CRCL calculation 52 ml/min; Estimated Glomerular Filt Rate 40; Glucose 78 mg/dL (65-110); Potassium 4.1 mmol/L (3.4-5.0); Sodium 138 mmol/L (137-145)
[2022-07-07 06:36] LABS: Burr Cells 2+ (NORMAL); Platelet Clumps Present; Platelet Estimate Adequate (Adequate)
[2022-07-07 06:38] LABS: Schistocytes None Seen (NORMAL); Smudge Cells PRESENT
--- NOTE | 2022-07-07 10:59 | PC.NURSE ---
Addendum entered by Bere Fonseca RN 07/07/22 18:54: Cast to right leg was removed without difficulty by pacu nurse OLIVIA Forde. Patient tolerated well, without complaints. Will continue to monitor mariannley. Original Note: Left message with Dr. Leung office regarding removal of cast to right leg. Await return call.
[2022-07-07] MEDS: SACCHAROMYCES BOULARDII 250 MG CAPSULE PO ×2 (11:15→17:58)
[2022-07-07] MEDS: HYDROcodone/acetaminophen (*CRX) 5-325 MG TABLET 1 TAB PO ×2 (11:15→17:58)
[2022-07-07] MEDS: GABAPENTIN 100 MG CAPSULE PO ×2 (11:15→17:58)
[2022-07-07] MEDS: PANTOPRAZOLE 40 MG TABLET PO (11:15)
[2022-07-07] MEDS: FLUoxetine HCL 20 MG CAPSULE PO (11:16)
[2022-07-07] MEDS: APIXABAN 5 MG TABLET PO (11:16)
[2022-07-07] MEDS: CHOLECALCIFEROL 1,000 UNITS TABLET 1000 UNITS PO (11:16)
[2022-07-07] MEDS: CYANOCOBALAMIN 1,000 MCG TABLET 1000 MCG PO (11:16)
[2022-07-07] MEDS: LOSARTAN POTASSIUM 25 MG TABLET PO (11:16)
[2022-07-07] MEDS: FUROSEMIDE 80 MG TABLET PO (11:16)
[2022-07-07] MEDS: FOLIC ACID 1 MG TABLET PO (11:17)
[2022-07-07] MEDS: buPROPion HCL SR (12 HR) 150 MG TAB PO (11:17)
[2022-07-07] MEDS: MAGNESIUM OXIDE 400 MG TABLET PO (11:17)
[2022-07-07] MEDS: FERROUS SULFATE 324 MG TABLET PO ×2 (11:17→17:58)
[2022-07-07] MEDS: CALCIUM CARBONATE (OSCAL) 500 MG TABLET 1000 MG PO (11:17)
[2022-07-07] MEDS: MUPIROCIN 2% OINT 22 GM TUBE 1 APPLIC EACH NARE ×2 (11:18→21:10)
[2022-07-07] MEDS: POTASSIUM CHLORIDE 20 MEQ TABLET.ER 40 MEQ PO ×2 (11:18→17:58)
[2022-07-07] MEDS: TOPIRAMATE 25 MG TABLET 50 MG PO ×2 (11:18→17:58)
[2022-07-07] MEDS: PERFLUTREN LIPID MICROSPHERES 1.5 ML VIAL DILUTED TO 10 ML TOTAL VOLUME IV PUSH (12:50)
--- NOTE | 2022-07-07 12:51 | IVDEFINITY ---
Prior to administration of IV Definity the patient was educated on the risks and benefits of the imaging enhancing agent including potential adverse side effects. The patient verbalized understanding. Allergies were verified. No exclusion criteria were identified and at least one of the following inclusion criteria were met: 1) physician request, 2) patient technically difficult to image (per the [place] [employer]ocardi[employer] guidelines of two or more segments not discernable within the apical view), or 3) questionable left ventricular function. ?
--- NOTE | 2022-07-07 14:04 | PM.PNCARD ---
Progress Note: A&P Assessment and Plan (1) Bimalleolar fracture of right ankle: Qualifiers: Encounter type: subsequent encounter Fracture type: closed Fracture healing: with routine healing Qualified Code(s): S82.841D - Displaced bimalleolar fracture of right lower leg, subsequent encounter for closed fracture with routine healing Code(s): S82.841A - Displaced bimalleolar fracture of right lower leg, initial encounter for closed fracture Status: Acute (2) Atrial fibrillation: Code(s): I48.91 - Unspecified atrial fibrillation Status: Acute (3) Sepsis: Code(s): A41.9 - Sepsis, unspecified organism Status: Acute (4) Type 2 diabetes mellitus: Code(s): E11.9 - Type 2 diabetes mellitus without complications Status: Acute (5) Metabolic encephalopathy: Code(s): G93.41 - Metabolic encephalopathy Status: Acute (6) Elevated troponin: Code(s): R77.8 - Other specified abnormalities of plasma proteins Status: Acute (7) Parotiditis: Code(s): K11.20 - Sialoadenitis, unspecified Status: Acute (8) Hypertension: Code(s): I10 - Essential (primary) hypertension Status: Acute Plan Echocardiogram pending, will follow-up on results. Recommend to start oral beta shirin for additional rate control for atrial fibrillation. Hemoglobin noted to be at a 8.9 today, previously was 13.4 2 days ago. Recommend further evaluation Given her history of presumed endocarditis from last hospitalization at outside hospital and pacemaker in place, would like to obtain CHELA, possibly later this week once patient continues to improve and depending on hemoglobin. Discussed procedure with the patient, and she is agreeable to undergo CHELA. She would need to be full code for the procedure. Subjective Date/time seen: 07/07/22 14:04 Interval history: Patient is more alert today, she is sitting up and able to have a conversation today. Patient denies any cardiac symptoms. She reports that she has pain in her face from her parotitis. She did have an episode of atrial fibrillation with RVR this morning, currently in sinus rhythm. Review of Systems Review of Systems: All systems reviewed & are unremarkable except as noted in HPI and below (Subjective) Exam Const: General: comfortable and no acute distress Resp: Effort & Inspection: normal respiratory effort Auscultation: diminished lung sounds Cardio: Rate: regular rate Rhythm: regular rhythm Heart sounds: no murmurs GI: GI Palp: Yes Soft to palpation and No Tenderness to palpation present (GI) Neuro: Speech: normal speech Psych: Other: Flat affect Objective Data Vital Signs Vital Signs: Vital Signs - 24 hr 07/06/22 16:42 07/06/22 16:00 07/06/22 16:00 Temperature 36.8 C Pulse Rate 68 67 Respiratory Rate 23 H Blood Pressure 105/43 L Pulse Oximetry 95 Oxygen Delivery Room Air 07/06/22 18:00 07/06/22 20:00 07/06/22 23:14 Temperature 36.5 C 37.0 C Pulse Rate 69 70 75 Respiratory Rate 20 20 Blood Pressure 111/59 L 121/61 Pulse Oximetry 100 96 Oxygen Delivery 07/06/22 20:00 07/06/22 20:00 07/06/22 22:00 Temperature Pulse Rate 68 73 Respiratory Rate Blood Pressure Pulse Oximetry Oxygen Delivery Room Air 07/07/22 00:00 07/07/22 00:00 07/07/22 02:00 Temperature Pulse Rate 73 78 Respiratory Rate Blood Pressure Pulse Oximetry Oxygen Delivery Room Air 07/07/22 03:11 07/07/22 04:00 07/07/22 04:00 Temperature 36.8 C Pulse Rate 110 H 81 Respiratory Rate 20 Blood Pressure 104/62 Pulse Oximetry 97 Oxygen Delivery Room Air 07/07/22 04:00 07/07/22 06:00 07/07/22 08:00 Temperature 36.3 C L Pulse Rate 84 68 69 Respiratory Rate 20 Blood Pressure 127/58 L Pulse Oximetry 99 Oxygen Delivery 07/07/22 12:00 07/07/22 08:00 07/07/22 08:00 Temperature 36.2 C L Pulse Rate 65 65
--- NOTE | 2022-07-07 14:47 | PM.IMPN ---
Progress Note: A&P Assessment and Plan (1) Parotiditis: Code(s): K11.20 - Sialoadenitis, unspecified Status: Acute Assessment and Plan: Improving, continue antibiotics, appreciate ENT consult, compresses and milking of parotid gland 07/07 - Patient continues to improved on vancomycin and cefepime. (2) Sepsis: Code(s): A41.9 - Sepsis, unspecified organism Status: Acute Assessment and Plan: 1/2 set of blood cultures from 07/04/22 growing gram positive cocci clusters. Patient has recent history of suspect endocarditis and treatment for MRSA two days prior to presentation to the emergency department. May be a contaminant but due to recent history will adjust antibiotics and de-escalate when appropriate. -Dose adjusted cefepime 2 g q12h for creatinine clearance of 33 -Continue vancomycin - pharmacy to dose -Do not have records for previous suspected endocarditis imaging, discussed CHELA with Cardiology today (3) Metabolic encephalopathy: Code(s): G93.41 - Metabolic encephalopathy Status: Acute Assessment and Plan: Unclear what exact baseline status is but compared to initial presentation, patient appears more awake and alert. Per nursing, she is able to swallow all of her pills and following instructions and is appropriate. While improving, will need additional information from family. (4) Positive blood culture: Code(s): R78.81 - Bacteremia Status: Acute Assessment and Plan: 1/2 set of blood cultures from 07/04/22 growing gram positive cocci clusters. Patient has recent history of suspect endocarditis and treatment for MRSA two days prior to presentation to the emergency department. Repeat blood cultures from 07/05/22 have no growth to date. -Dose adjusted cefepime 2 g q12h for creatinine clearance of 33 -Continue vancomycin - pharmacy to dose -Do not have records for previous suspected endocarditis imaging, discussed CHELA with Cardiology today -Had nursing remove midline as it was from previous hospitalization for treatment of bacteremia (5) Elevated troponin: Code(s): R77.8 - Other specified abnormalities of plasma proteins Status: Acute Assessment and Plan: Echo with EF 15-20%, which cardiology believes is likely stress cardiomyopathy and not ACS but does recommend a heart catheterization in the future. Patient is without chest pain. Has a pacemaker, but does she need a life vest prior to discharge? Will discuss with Cardiology. (6) Type 2 diabetes mellitus: Code(s): E11.9 - Type 2 diabetes mellitus without complications Status: Acute Assessment and Plan: A1c is 4.9, no need for Accu-Cheks or insulin (7) Atrial fibrillation: Code(s): I48.91 - Unspecified atrial fibrillation Status: Acute Assessment and Plan: Home apixaban has been continued while inpatient. Having some tachycardia. Cardiology has increased metoprolol to 50 mg BID and discontinued sotalol. (8) Bimalleolar fracture of right ankle: Qualifiers: Encounter type: subsequent encounter Fracture type: closed Fracture healing: with routine healing Qualified Code(s): S82.841D - Displaced bimalleolar fracture of right lower leg, subsequent encounter for closed fracture with routine healing Code(s): S82.841A - Displaced bimalleolar fracture of right lower leg, initial encounter for closed fracture Status: Acute Assessment and Plan: Appreciate orthopedic consultation, x-ray show good healing, cast can be removed and patient can be placed in a fracture boot for weight-bearing as tolerated with PT (9) Elevated serum creatinine: Code(s): R79.89 - Other specified abnormal findings of blood chemistry Status: Acute Assessment and Plan: Baseline creatinine unknown. Will request records from previous hospitalization. Creatinine is improving but has not normalized. Taking
--- NOTE | 2022-07-07 16:47 | PC.NURSE ---
On 07/07/22, the student, Carli [facility], provided care and completed [facility] documentation on this patient. I have reviewed the student's documentation and agree with the findings.
[2022-07-07 20:24] LABS: Hematocrit 29.2 % (37.0-47.0)
[2022-07-07 20:43] LABS: Vancomycin Trough 26.4 ug/mL (10.0-20.0)
[2022-07-07 21:10] LABS: Iron 71 ug/dL (37-170)
[2022-07-07] MEDS: RANOLAZINE 500 MG TAB.ER.12H 1000 MG PO (21:10)
[2022-07-07] MEDS: traZODone HCL 50 MG TABLET 100 MG PO (21:10)
[2022-07-07] MEDS: METOPROLOL TARTRATE 50 MG TAB PO (21:10)
[2022-07-07] MEDS: ATORVASTATIN 40 MG TABLET PO (21:10)
[2022-07-07] MEDS: ALPRAZolam (*CRX) 0.5 MG TABLET PO (21:10)
[2022-07-07 21:19] LABS: Percent Iron Saturation 44 % (20-50)
[2022-07-07 22:12] LABS: Folic Acid > 20.0 ng/mL (2.76->20); Vitamin B12 > 1000.0 pg/mL (239-931)
[2022-07-08] VITALS (18 sets, daily range): BP systolic 101–139; BP diastolic 55–78; PULSE 60–110; RESP 18–20; TEMP 36.3–38.3; O2SAT 96–100
[2022-07-08 00:37] LABS: Creatinine Urine 13.4 mg/dL; Urea Random Urine 119 MG/DL
[2022-07-08 00:46] LABS: Sodium Urine Random 24 meq/L
[2022-07-08 05:08] LABS: Basophils Absolute Auto 0.1 K/mm3 (0.0-0.1); Basophils Percent Auto 1.1 % (0.2-1.2); Eosinophils Absolute Auto 0.3 K/mm3 (0-0.3); Eosinophils Percent Auto 3.6 % (0-4.4); Hematocrit 29.3 % (37.0-47.0); Hemoglobin 9.8 g/dL (12.0-15.0); Immature Granulocyte Absolute 0.32 K/mm3 (0.00-0.031); Immature Granulocyte Percent A 3.8 % (0-0.5); Lymphocytes Absolute Auto 1.88 K/mm3 (0.9-3.2); Lymphocytes Percent Auto 22.6 % (18.3-44.2); Mean Corpuscular HGB Conc 33.4 g/dl (32-36); Mean Corpuscular Hemoglobin 35.5 pg (26-34); Mean Corpuscular Volume 106.2 fl (80-100); Mean Platelet Volume 12.8 fl (7.4-10.4); Monocytes Absolute Auto 0.9 K/mm3 (0.1-0.6); Monocytes Percent Auto 10.7 % (2.6-8.5); Neutrophils Absolute Auto 4.9 K/mm3 (1.3-6.7); Neutrophils Percent Auto 58.2 % (45.5-73.1); Nucleated Red Blood Cells Perc 0.4 % (0.0-0.2); Platelet Count Result 225 k/mm3 (150-375); Red Blood Count 2.76 M/mm3 (4.2-5.4); Red Cell Distribution Width 15.8 % (11.5-14.5); White Blood Count 8.3 K/mm3 (4.5-10.0)
[2022-07-08 05:26] LABS: Alanine Aminotransferase 21 U/L (6-35); Albumin Level 2.2 g/dL (3.5-5.1); Alkaline Phosphatase 84 U/L (38-126); Anion Gap 5 mmol/L (8-16); Aspartate Amino Transferase 35 U/L (14-36); Bilirubin,Total 0.4 mg/dL (0.2-1.3); Blood Urea Nitrogen 22 mg/dL (7-17); Calcium 8.4 mg/dL (8.4-10.2); Carbon Dioxide 15 mmol/L (22-30); Chloride 120 mmol/L (98-107); Estimated CRCL calculation 60 ml/min; Estimated Glomerular Filt Rate 49; Glucose 81 mg/dL (65-110); Potassium 4.8 mmol/L (3.4-5.0); Sodium 140 mmol/L (137-145)
[2022-07-08] MEDS: SUCRALFATE 1 GM TABLET PO ×3 (05:58→15:52)
[2022-07-08] MEDS: LEVOTHYROXINE SODIUM 75 MCG TABLET PO (05:58)
--- NOTE | 2022-07-08 07:41 | PM.IMPN ---
Progress Note: A&P Assessment and Plan (1) Parotiditis: Code(s): K11.20 - Sialoadenitis, unspecified Status: Acute Assessment and Plan: Improving, continue antibiotics, appreciate ENT consult, compresses and milking of parotid gland. Would culture growing staphylococcus aureus pending sensitivities. Will continue antibiotics. 07/07 - Patient continues to improved on vancomycin and cefepime. (2) Sepsis: Code(s): A41.9 - Sepsis, unspecified organism Status: Acute Assessment and Plan: 1/2 set of blood cultures from 07/04/22 growing gram positive cocci clusters. Patient has recent history of suspect endocarditis and treatment for MRSA two days prior to presentation to the emergency department. Wound culture growing staphylococcus aureus with pending sensitivities. 1/2 cultures from 07/04 with staphylococcus capitis but repeat cultures for 07/05/22 prior to increasing dose of cefepime continue to have no growth. Stap capitis is likely a contaminant. -De-escalate cefepime 1g q12h adjusted for creatinine clearance -Continue vancomycin - pharmacy to dose (3) Metabolic encephalopathy: Code(s): G93.41 - Metabolic encephalopathy Status: Acute Assessment and Plan: Patieint was fully alert and oriented today. She should be able to participate in CHELA. (4) Clostridial infection: Status: Acute Assessment and Plan: C. diff positive today. Already on probiotic. -Fidaxomicin 200 mg BID x 10 days (5) Positive blood culture: Code(s): R78.81 - Bacteremia Status: Acute Assessment and Plan: 1/2 set of blood cultures from 07/04/22 growing staphylococcus capitis. Patient has recent history of suspect endocarditis and treatment for MRSA two days prior to presentation to the emergency department. Repeat blood cultures from 07/05/22 have no growth to date. This was likely a contaminant. -De-escalate cefepime 1g q12h adjusted for creatinine clearance -Continue vancomycin - pharmacy to dose for wound (6) Elevated troponin: Code(s): R77.8 - Other specified abnormalities of plasma proteins Status: Acute Assessment and Plan: Echo with EF 15-20%, which cardiology believes is likely stress cardiomyopathy and not ACS but does recommend a heart catheterization in the future. Patient is without chest pain. Has a pacemaker, but does she need a life vest prior to discharge? Will discuss with Cardiology. (7) Type 2 diabetes mellitus: Code(s): E11.9 - Type 2 diabetes mellitus without complications Status: Acute Assessment and Plan: A1c is 4.9, no need for Accu-Cheks or insulin (8) Atrial fibrillation: Code(s): I48.91 - Unspecified atrial fibrillation Status: Acute Assessment and Plan: Having some tachycardia. Cardiology has increased metoprolol to 50 mg BID and discontinued sotalol. Home apixaban held starting 07/07/22 due to concern for bleeding and need for CHELA. (9) Bimalleolar fracture of right ankle: Qualifiers: Encounter type: subsequent encounter Fracture type: closed Fracture healing: with routine healing Qualified Code(s): S82.841D - Displaced bimalleolar fracture of right lower leg, subsequent encounter for closed fracture with routine healing Code(s): S82.841A - Displaced bimalleolar fracture of right lower leg, initial encounter for closed fracture Status: Acute Assessment and Plan: Appreciate orthopedic consultation, x-ray show good healing, cast can be removed and patient can be placed in a fracture boot for weight-bearing as tolerated with PT (10) Elevated serum creatinine: Code(s): R79.89 - Other specified abnormal findings of blood chemistry Status: Acute Assessment and Plan: Baseline creatinine was around 0.8 in May 2022. Renal ultrasound unable to visualize left kidney due to body habitus and notes normal
[2022-07-08] MEDS: HYDROcodone/acetaminophen (*CRX) 5-325 MG TABLET 1 TAB PO (08:34)
[2022-07-08] MEDS: CHOLECALCIFEROL 1,000 UNITS TABLET 1000 UNITS PO (08:48)
[2022-07-08] MEDS: CALCIUM CARBONATE (OSCAL) 500 MG TABLET 1000 MG PO (08:48)
[2022-07-08] MEDS: CYANOCOBALAMIN 1,000 MCG TABLET 1000 MCG PO (08:48)
[2022-07-08] MEDS: MAGNESIUM OXIDE 400 MG TABLET PO (08:48)
[2022-07-08] MEDS: PANTOPRAZOLE 40 MG TABLET PO (08:48)
[2022-07-08] MEDS: GABAPENTIN 100 MG CAPSULE PO ×2 (08:49→17:18)
[2022-07-08] MEDS: LOSARTAN POTASSIUM 25 MG TABLET PO (08:49)
[2022-07-08] MEDS: TOPIRAMATE 25 MG TABLET 50 MG PO ×2 (08:49→17:18)
[2022-07-08] MEDS: FLUoxetine HCL 20 MG CAPSULE PO (08:49)
[2022-07-08] MEDS: buPROPion HCL SR (12 HR) 150 MG TAB PO (08:49)
[2022-07-08] MEDS: POTASSIUM CHLORIDE 20 MEQ TABLET.ER 40 MEQ PO ×3 (08:49→17:19)
[2022-07-08] MEDS: FOLIC ACID 1 MG TABLET PO (08:49)
[2022-07-08] MEDS: METOPROLOL TARTRATE 50 MG TAB PO ×2 (08:50→21:52)
[2022-07-08] MEDS: SACCHAROMYCES BOULARDII 250 MG CAPSULE PO ×2 (08:50→17:15)
[2022-07-08] MEDS: MUPIROCIN 2% OINT 22 GM TUBE 1 APPLIC EACH NARE ×2 (08:50→21:53)
[2022-07-08] MEDS: FERROUS SULFATE 324 MG TABLET PO ×2 (10:21→17:17)
[2022-07-08 11:00] LABS: IFOB Positive Control Positive; Immunochemical Fecal Occult Bl Positive (N)
--- NOTE | 2022-07-08 11:36 | PM.PNCARD ---
Progress Note: A&P Assessment and Plan (1) Coronary artery disease: Code(s): I25.10 - Atherosclerotic heart disease of [place] coronary artery without angina pectoris Status: Acute (2) Atrial fibrillation: Code(s): I48.91 - Unspecified atrial fibrillation Status: Acute (3) Type 2 diabetes mellitus: Code(s): E11.9 - Type 2 diabetes mellitus without complications Status: Acute (4) Elevated troponin: Code(s): R77.8 - Other specified abnormalities of plasma proteins Status: Acute (5) Hypertension: Code(s): I10 - Essential (primary) hypertension Status: Acute (6) Heart failure with reduced ejection fraction: Code(s): I50.20 - Unspecified systolic (congestive) heart failure Status: Acute Plan Discussed the results of echocardiogram with the patient and her daughter (over phone). Patient has severe reduction in LVSF (no prior history of heart failure/cardiomyopathy). Given low LVEF, will stop diltiazem and sotalol. Start beta shirin for rate control. Given history of recent presumed endocarditis, discussed obtaining CHELA with patient and her daughter, including procedure details, benefits vs. risks. Patient and family would like to pursue CHELA. Patient states she is okay to be full code for the procedure. Given her new diagnosis of HFrEF, ischemic evaluation is recommended too. Stopped Eliquis for possible cardiac cath. Recommend to start therapeutic lovenox instead. Discussed cardiac cath with the patient and daughter, including procedure details, benefits vs. risks. Patient and family okay to pursue cardiac cath if needed. Will make patient NPO for possible CHELA tomorrow. Subjective Date/time seen: 07/08/22 11:36 Interval history: Patient reports improvement in her facial pain. Can open her mouth and swallow okay without issue. No chest pain or shortness of breath. Has right ankle pain from her fracture. Review of Systems Review of Systems: All systems reviewed & are unremarkable except as noted in HPI and below (subjective) Exam Const: General: comfortable and no acute distress Other: Morbidly obese Neck: Neck: no JVD Resp: Effort & Inspection: normal respiratory effort Auscultation: diminished lung sounds Cardio: Rate: regular rate Rhythm: regular rhythm Heart sounds: no murmurs GI: GI Palp: Yes Soft to palpation and No Tenderness to palpation present (GI) Neuro: Speech: normal speech Extrem: General: no edema Psych: Other: Flat affect Objective Data Vital Signs Vital Signs: Vital Signs - 24 hr 07/07/22 12:00 07/07/22 12:00 07/07/22 12:00 Temperature 36.2 C L Pulse Rate 65 65 Respiratory Rate 18 Blood Pressure 110/66 Pulse Oximetry 100 Oxygen Delivery Room Air 07/07/22 14:00 07/07/22 16:00 07/07/22 16:00 Temperature 36.4 C L Pulse Rate 60 60 Respiratory Rate 20 Blood Pressure 130/60 Pulse Oximetry 98 Oxygen Delivery Room Air 07/07/22 16:00 07/07/22 18:00 07/07/22 20:00 Temperature 36.6 C Pulse Rate 60 62 68 Respiratory Rate 20 Blood Pressure 103/50 L Pulse Oximetry 97 Oxygen Delivery 07/07/22 21:10 07/07/22 20:00 07/07/22 20:00 Temperature Pulse Rate 64 62 64 Respiratory Rate 20 Blood Pressure Pulse Oximetry 97 Oxygen Delivery Room Air 07/07/22 22:00 07/08/22 00:00 07/08/22 00:00 Temperature 36.4 C Pulse Rate 60 63 61 Respiratory Rate 20 Blood Pressure 101/57 L Pulse Oximetry 96 Oxygen Delivery 07/08/22 00:00 07/08/22 02:00 07/08/22 04:00 Temperature Pulse Rate 63 63 66 Respiratory Rate 20 Blood Pressure Pulse Oximetry 96 Oxygen Delivery Room Air 07/08/22 04:00 07/08/22 04:00 07/08/22 06:00 Temperature 36.6 C Pulse Rate 63 110 H 70 Respiratory Rate 20 18 Blood Pressure 111/77 Pulse Oximetry 96 97 Oxygen Delivery Room Air 07/08/22 07:57 07/08/22 08:50 07/08/22 11:31 Temperature
--- NOTE | 2022-07-08 11:52 | PC.NURSE ---
On 07/08/22, the student, [Sultana King], provided care and completed [facility] documentation on this patient. I have reviewed the student's documentation and agree with the findings.
[2022-07-08 11:59] LABS: Toxigenic C. Diff POSITIVE (NEGATIVE)
[2022-07-08 12:40] LABS: INR 1.4; Prothrombin Time 16.8 Seconds (11.1-14.7)
--- NOTE | 2022-07-08 14:47 | WPDGICN ---
Assessment and Plan Assessment and plan (1) Anemia: Code(s): D64.9 - Anemia, unspecified Status: Acute Assessment and Plan: with stool positive for occult blood a drop in her hemoglobin, GI source is very likely. She thinks that she had an ulcer many years ago. She does take generic Nexium daily. She denies dysphagia or significant heartburn. I told her that we should schedule her for EGD which can be done now that she is off Eliquis. Although she and I had talked about colonoscopy, I do not think it is appropriate now that she has active C diff colitis (2) Blood in stool: Code(s): K92.1 - Melena Status: Acute Assessment and Plan: gastrointestinal blood loss is probably responsible at least in part for her anemia. She does have chronic kidney disease. This is probably also a factor. (3) Clostridial infection: Status: Acute Assessment and Plan: This diagnosis just recently came back. She has been started on vancomycin. (4) Bimalleolar fracture of right ankle: Qualifiers: Encounter type: subsequent encounter Fracture type: closed Fracture healing: with routine healing Qualified Code(s): S82.841D - Displaced bimalleolar fracture of right lower leg, subsequent encounter for closed fracture with routine healing Code(s): S82.841A - Displaced bimalleolar fracture of right lower leg, initial encounter for closed fracture Status: Acute Assessment and Plan: She states that she is finally getting over that. It appears that she has been cleared for partial weight-bearing (5) Atrial fibrillation: Code(s): I48.91 - Unspecified atrial fibrillation Status: Acute Assessment and Plan: she has a pacemaker. The the atrial fibrillation is the reason she is on Eliquis which is on hold now (6) Endocarditis: Code(s): I38 - Endocarditis, valve unspecified Status: Acute Assessment and Plan: she has been started on cefepime, With the dose adjusted for renal function. Plan EGD tomorrow GI Consult Note Consult date/time: 07/08/22 14:47 HPI: Kenya Oropeza is a 72 year old female who came into the emergency room initially because of a change in mental status. She has been at a rehabilitation center having sustained a fracture to the right ankle from which she has gradually recovered. She states she also injured her left foot when staff was placing her in a wheelchair. recently she was found to have MRSA bacteremia, which was treated with IV antibiotics as [facility]. On admission her hemoglobin was 13.4 but has dropped to 9.8. A stool Hemoccult came back positive. She states that she has not seen blood in her stools. She has had loose stools in fact joaquin diarrhea for several weeks. She denies nausea vomiting or abdominal pain. A stool specimen for C difficile has come back positive. She has been started on vancomycin. Stool cultures at this time are positive for Gram-positive organisms. She is currently on cefepime as well as vancomycin. She has been seen by Cardiology who was considering CHELA to evaluate for endocarditis. She states that she had a colonoscopy many years ago but not in the recent past. Review of Systems Review of Systems: All systems reviewed & are unremarkable except as noted in HPI and below PMFSH Past Medical History Medical History Bimalleolar fracture of right ankle Bipolar disorder Breast cancer Coronary artery disease Endocarditis Hypertension MRSA bacteremia Paroxysmal atrial fibrillation Type 2 diabetes mellitus Surgical History Surgical History History of bilateral mastectomy History of cholecystectomy History of hysterectomy History of permanent cardiac pacemaker placement Family History Family History (Reviewed 07/08/22 @ 14:57 by Dieudonne Sanchez
--- NOTE | 2022-07-08 14:58 | PM.PNORT ---
Progress Note: A&P Assessment and Plan (1) Bimalleolar fracture of right ankle: Qualifiers: Encounter type: subsequent encounter Fracture type: closed Fracture healing: with routine healing Qualified Code(s): S82.841D - Displaced bimalleolar fracture of right lower leg, subsequent encounter for closed fracture with routine healing Code(s): S82.841A - Displaced bimalleolar fracture of right lower leg, initial encounter for closed fracture Status: Acute Assessment and Plan: cast removed in the interim. Skin right leg intact. Able to move ankle and toes. Will probably be slow to mobilize. Fracture boot in the room for protective weight-bearing when cleared medically to be out of bed. Weight bear as tolerated with boot in place. PT/OT. Subjective Subjective Date/Time Seen: 07/08/22 14:58 Principal diagnosis: Right ankle bimalleolar fracture Interval history: cast removed. Patient in bed. A little bit more alert today. Complains of some soreness through the right leg. Review of Systems Constitutional: Constitutional: Denies fever(s) Eyes: Eyes: Denies blurry vision ENT: Reports Normal hearing present Cardiovascular: Cardiovascular: Denies chest pain and Denies dyspnea Respiratory: Respiratory: Denies dyspnea and Denies wheezing Gastrointestinal: Gastrointestinal: Denies abdominal pain Genitourinary: Genitourinary: Denies urinary urgency Musculoskeletal: Musculoskeletal: Reports as per HPI and Denies numbness Integumentary/Breasts: Skin/Breast: Denies changing lesions and Denies sores Neurologic: Reports Normal hearing present, Denies behavioral changes, Denies confusion, Denies numbness and Denies convulsions Psychiatric: Psychiatric: Denies behavioral changes, Denies confusion and Denies hallucinations Endocrine: Endocrine: Denies heat intolerance Hematologic/Lymphatic: Hematologic/Lymphatic: Denies easy bleeding Allergic/Immunologic: Allergic/Immunologic: Denies wheezing Exam Const: General: comfortable; No acute distress Resp: Effort & Inspection: normal respiratory effort and no audible wheezes Extrem: Right lower extremity: lower leg Details: normal to inspection, tenderness Location: other ( Diffuse, negative Homans) and pitting edema Details: 3+; no erythema, ankle Details: tenderness Location: of the lateral malleolus and of the medial malleolus and swelling Details: diffusely ( mild) and foot Details: vascular exam Details: dorsalis pedis pulse present and normal capillary refill, motor-sensory exam Details: light-touch normal Location: in all toes and other ( Toes pink and warm. Able to move.); no edema Left lower extremity: normal to inspection, ankle Details: normal ROM and foot Details: edema, vascular exam Details: dorsalis pedis pulse present and normal capillary refill and motor-sensory exam light-touch normal in all toes Objective Data Vital Signs Vital Signs: Vital Signs - 24 hr 07/07/22 16:00 07/07/22 16:00 07/07/22 16:00 Temperature 97.5 F L Pulse Rate 60 60 Respiratory Rate 20 Blood Pressure 130/60 Pulse Oximetry 98 Oxygen Delivery Room Air 07/07/22 18:00 07/07/22 20:00 07/07/22 21:10 Temperature 97.8 F Pulse Rate 62 68 64 Respiratory Rate 20 Blood Pressure 103/50 L Pulse Oximetry 97 Oxygen Delivery 07/07/22 20:00 07/07/22 20:00 07/07/22 22:00 Temperature Pulse Rate 62 64 60 Respiratory Rate 20 Blood Pressure Pulse Oximetry 97 Oxygen Delivery Room Air 07/08/22 00:00 07/08/22 00:00 07/08/22 00:00 Temperature 97.6 F Pulse Rate 63 61 63 Respiratory Rate 20 20 Blood Pressure 101/57 L Pulse Oximetry 96 96 Oxygen Delivery Room Air 07/08/22 02:00 07/08/22 04:00 07/08/22 04:00 Temperature Pulse Rate 63 66 63 Respiratory Rate 20 Blood Pressure Pulse Oximetry 96 Oxygen Delivery Room Air 07/08/22 04:00 07/08/22 06:00 07/08/22 07:57 Temperature 97.8 F
[2022-07-08] MEDS: FIDAXOMICIN 200 MG TABLET PO ×2 (15:51→21:52)
[2022-07-08] MEDS: ALPRAZolam (*CRX) 0.5 MG TABLET PO (21:52)
[2022-07-08] MEDS: RANOLAZINE 500 MG TAB.ER.12H 1000 MG PO (21:52)
[2022-07-08] MEDS: traZODone HCL 50 MG TABLET 100 MG PO (21:52)
[2022-07-08] MEDS: ATORVASTATIN 40 MG TABLET PO (21:52)
[2022-07-09] VITALS (19 sets, daily range): BP systolic 108–149; BP diastolic 47–87; PULSE 65–82; RESP 16–22; TEMP 35.9–36.6; O2SAT 96–100
[2022-07-09 05:06] LABS: Basophils Absolute Auto 0.1 K/mm3 (0.0-0.1); Eosinophils Absolute Auto 0.2 K/mm3 (0-0.3); Eosinophils Percent Auto 2.6 % (0-4.4); Hematocrit 28.5 % (37.0-47.0); Immature Granulocyte Absolute 0.36 K/mm3 (0.00-0.031); Lymphocytes Absolute Auto 1.76 K/mm3 (0.9-3.2); Lymphocytes Percent Auto 24.5 % (18.3-44.2); Mean Corpuscular HGB Conc 31.6 g/dl (32-36); Mean Corpuscular Hemoglobin 34.9 pg (26-34); Mean Corpuscular Volume 110.5 fl (80-100); Mean Platelet Volume 12.3 fl (7.4-10.4); Monocytes Absolute Auto 0.9 K/mm3 (0.1-0.6); Monocytes Percent Auto 12.7 % (2.6-8.5); Neutrophils Absolute Auto 3.9 K/mm3 (1.3-6.7); Neutrophils Percent Auto 54.2 % (45.5-73.1); Nucleated Red Blood Cells Perc 0.4 % (0.0-0.2); Platelet Count Result 240 k/mm3 (150-375); Red Blood Count 2.58 M/mm3 (4.2-5.4); Red Cell Distribution Width 15.8 % (11.5-14.5); White Blood Count 7.2 K/mm3 (4.5-10.0)
[2022-07-09 05:22] LABS: Alanine Aminotransferase 21 U/L (6-35); Albumin Level 2.2 g/dL (3.5-5.1); Alkaline Phosphatase 100 U/L (38-126); Anion Gap 5 mmol/L (8-16); Aspartate Amino Transferase 29 U/L (14-36); Bilirubin,Total 0.4 mg/dL (0.2-1.3); Blood Urea Nitrogen 18 mg/dL (7-17); Calcium 8.7 mg/dL (8.4-10.2); Carbon Dioxide 17 mmol/L (22-30); Chloride 116 mmol/L (98-107); Estimated CRCL calculation 52 ml/min; Estimated Glomerular Filt Rate 40; Glucose 73 mg/dL (65-110); Potassium 4.8 mmol/L (3.4-5.0); Sodium 138 mmol/L (137-145)
[2022-07-09] MEDS: LEVOTHYROXINE SODIUM 75 MCG TABLET PO (06:30)
--- NOTE | 2022-07-09 08:37 | PM.IMPN ---
Progress Note: A&P Assessment and Plan (1) Parotiditis: Code(s): K11.20 - Sialoadenitis, unspecified Status: Acute Assessment and Plan: Improving, continue antibiotics, appreciate ENT consult, compresses and milking of parotid gland. Would culture growing methicillin resistant staphylococcus sensitive to vancomycin and tetracyclines. 07/07 - Patient continues to improved on vancomycin and cefepime. 07/09: Discontinue cefepime. Continue vancomycin while hospitalized. Will plan for a total duration of 7-10 days from 07/06/22. (2) Sepsis: Code(s): A41.9 - Sepsis, unspecified organism Status: Acute Assessment and Plan: Patient has recent history of suspect endocarditis and treatment for MRSA two days prior to presentation to the emergency department. 1/2 cultures from 07/04 with staphylococcus capitis but repeat cultures for 07/05/22 prior to increasing dose of cefepime continue to have no growth. Stap capitis is likely a contaminant. -Continue vancomycin - pharmacy to dose (3) Metabolic encephalopathy: Code(s): G93.41 - Metabolic encephalopathy Status: Acute Assessment and Plan: Patieint was fully alert and oriented today. She should be able to participate in CHELA. (4) Clostridial infection: Status: Acute Assessment and Plan: C. diff positive today. Already on probiotic. -Fidaxomicin 200 mg BID x 10 days (5) Positive blood culture: Code(s): R78.81 - Bacteremia Status: Acute Assessment and Plan: 1/2 set of blood cultures from 07/04/22 growing staphylococcus capitis. Patient has recent history of suspect endocarditis and treatment for MRSA two days prior to presentation to the emergency department. Repeat blood cultures from 07/05/22 have no growth to date. This was likely a contaminant. -Continue vancomycin - pharmacy to dose for wound (6) Elevated troponin: Code(s): R77.8 - Other specified abnormalities of plasma proteins Status: Acute Assessment and Plan: Echo with EF 15-20%, which cardiology believes is likely stress cardiomyopathy and not ACS but does recommend a heart catheterization in the future. Patient is without chest pain. Has a pacemaker, but does she need a life vest prior to discharge? Will discuss with Cardiology. - (7) Type 2 diabetes mellitus: Code(s): E11.9 - Type 2 diabetes mellitus without complications Status: Acute Assessment and Plan: A1c is 4.9, no need for Accu-Cheks or insulin (8) Atrial fibrillation: Code(s): I48.91 - Unspecified atrial fibrillation Status: Acute Assessment and Plan: Having some tachycardia. Cardiology has increased metoprolol to 50 mg BID and discontinued sotalol. Home apixaban held starting 07/07/22 due to concern for bleeding and need for CHELA. (9) Bimalleolar fracture of right ankle: Qualifiers: Encounter type: subsequent encounter Fracture type: closed Fracture healing: with routine healing Qualified Code(s): S82.841D - Displaced bimalleolar fracture of right lower leg, subsequent encounter for closed fracture with routine healing Code(s): S82.841A - Displaced bimalleolar fracture of right lower leg, initial encounter for closed fracture Status: Acute Assessment and Plan: Appreciate orthopedic consultation, x-ray show good healing, cast can be removed and patient can be placed in a fracture boot for weight-bearing as tolerated with PT (10) Elevated serum creatinine: Code(s): R79.89 - Other specified abnormal findings of blood chemistry Status: Acute Assessment and Plan: Baseline creatinine was around 0.8 in May 2022. Renal ultrasound unable to visualize left kidney due to body habitus and notes normal right kidney without hydronephrosis. No evidence of right sided renal artery stenosis. Left renal artery not well visualized. Creatinine d
[2022-07-09] MEDS: FOLIC ACID 1 MG TABLET PO (09:01)
[2022-07-09] MEDS: FLUoxetine HCL 20 MG CAPSULE PO (09:01)
[2022-07-09] MEDS: POTASSIUM CHLORIDE 20 MEQ TABLET.ER 40 MEQ PO ×3 (09:01→16:37)
[2022-07-09] MEDS: METOPROLOL TARTRATE 50 MG TAB PO ×2 (09:01→21:39)
[2022-07-09] MEDS: SACCHAROMYCES BOULARDII 250 MG CAPSULE PO ×2 (09:01→16:37)
[2022-07-09] MEDS: LOSARTAN POTASSIUM 25 MG TABLET PO (09:01)
[2022-07-09] MEDS: buPROPion HCL SR (12 HR) 150 MG TAB PO (09:01)
[2022-07-09] MEDS: CHOLECALCIFEROL 1,000 UNITS TABLET 1000 UNITS PO (09:01)
[2022-07-09] MEDS: FIDAXOMICIN 200 MG TABLET PO ×2 (09:01→21:39)
[2022-07-09] MEDS: PANTOPRAZOLE 40 MG TABLET PO (09:01)
[2022-07-09] MEDS: TOPIRAMATE 25 MG TABLET 50 MG PO ×2 (09:01→16:37)
[2022-07-09] MEDS: HYDROcodone/acetaminophen (*CRX) 5-325 MG TABLET 1 TAB PO ×2 (09:01→16:37)
[2022-07-09] MEDS: MUPIROCIN 2% OINT 22 GM TUBE 1 APPLIC EACH NARE ×2 (09:01→21:40)
[2022-07-09] MEDS: CALCIUM CARBONATE (OSCAL) 500 MG TABLET 1000 MG PO (09:01)
[2022-07-09] MEDS: MAGNESIUM OXIDE 400 MG TABLET PO (09:01)
[2022-07-09] MEDS: FERROUS SULFATE 324 MG TABLET PO ×2 (09:01→16:37)
[2022-07-09] MEDS: GABAPENTIN 100 MG CAPSULE PO ×2 (09:01→16:37)
[2022-07-09] MEDS: CYANOCOBALAMIN 1,000 MCG TABLET 1000 MCG PO (09:05)
--- NOTE | 2022-07-09 10:29 | PM.PNCARD ---
Progress Note: A&P Assessment and Plan (1) Coronary artery disease: Code(s): I25.10 - Atherosclerotic heart disease of [place] coronary artery without angina pectoris Status: Acute (2) Atrial fibrillation: Code(s): I48.91 - Unspecified atrial fibrillation Status: Acute (3) Type 2 diabetes mellitus: Code(s): E11.9 - Type 2 diabetes mellitus without complications Status: Acute (4) Elevated troponin: Code(s): R77.8 - Other specified abnormalities of plasma proteins Status: Acute (5) Hypertension: Code(s): I10 - Essential (primary) hypertension Status: Acute (6) Heart failure with reduced ejection fraction: Code(s): I50.20 - Unspecified systolic (congestive) heart failure Status: Acute Plan New diagnosis severe cardiomyopathy. Will stop losartan in favor of Entresto. Monitor BMP closely. K+ in particular as her K+ runs on the high side of normal and this medication can cause hyperkalemia. Will hold off on adding spironolactone until her response to Entresto is observed. Would also add Jardiance before discharge if she is able to afford it. Given low LVEF, stopped diltiazem and sotalol. On beta shirin for rate control. Given history of recent presumed endocarditis, plan to pursue CHELA during this hospitalization when clinically appropriate. Given her new diagnosis of HFrEF, ischemic evaluation is recommended too. Stopped Eliquis for possible cardiac cath. Recommend to start therapeutic lovenox instead. Dr. Merlos has discussed cardiac cath with the patient and daughter, including procedure details, benefits vs. risks. Patient and family okay to pursue cardiac cath if needed. Subjective Date/time seen: 07/09/22 10:29 Cardiology follow up Patient is confused this morning. Thinks she is at [facility]. Complaining of pain in her legs. She denies any chest pain, shortness of breath, palpitations. Review of Systems Review of Systems: All systems reviewed & are unremarkable except as noted in HPI and below (subjective) ROS unobtainable: Yes unobtainable due to mental status and other (ROS very limited due to mental status.) Exam Const: General: comfortable and no acute distress Other: Morbidly obese Neck: Neck: no JVD Resp: Effort & Inspection: normal respiratory effort Auscultation: diminished lung sounds Cardio: Rate: regular rate Rhythm: regular rhythm Heart sounds: no murmurs Skin: General skin exam: normal color Neuro: Speech: normal speech Other: Altered mental status. Extrem: General: no edema Psych: Other: Flat affect Objective Data Vital Signs Vital Signs: Vital Signs - 24 hr 07/08/22 11:31 07/08/22 12:00 07/08/22 14:00 Temperature 36.8 C Pulse Rate 60 60 60 Respiratory Rate 18 Blood Pressure 137/71 Pulse Oximetry 100 Oxygen Delivery 07/08/22 12:00 07/08/22 16:00 07/08/22 16:00 Temperature Pulse Rate 62 Respiratory Rate Blood Pressure Pulse Oximetry Oxygen Delivery Room Air Room Air 07/08/22 16:00 07/08/22 18:00 07/08/22 19:57 Temperature 36.3 C L 36.5 C Pulse Rate 60 65 69 Respiratory Rate 20 20 Blood Pressure 139/55 L 115/78 Pulse Oximetry 100 97 Oxygen Delivery 07/08/22 21:52 07/08/22 20:00 07/08/22 20:00 Temperature Pulse Rate 73 69 69 Respiratory Rate 20 Blood Pressure Pulse Oximetry 97 Oxygen Delivery Room Air 07/08/22 22:00 07/08/22 23:45 07/09/22 00:00 Temperature 36.6 C Pulse Rate 70 68 65 Respiratory Rate 20 Blood Pressure 118/70 Pulse Oximetry 99 Oxygen Delivery 07/09/22 00:00 07/09/22 02:00 07/09/22 04:00 Temperature Pulse Rate 65 67 67 Respiratory Rate 20 Blood Pressure Pulse Oximetry 97 Oxygen Delivery Room Air 07/09/22 04:00 07/09/22 04:00 07/09/22 06:00 Temperature 36.6 C Pulse Rate 67 74 70 Respiratory Rate 18 Blood Pressure 128/59 L Pulse Oxi
[2022-07-09] MEDS: SUCRALFATE 1 GM TABLET PO ×2 (12:20→16:37)
--- NOTE | 2022-07-09 12:55 | WPDANESEPPF ---
Anes - Initial Pre Proc Eval Procedure: Operation Date: 07/09/22 14:15 Proposed Procedures p Esophagogastroduodenoscopy - Dieudonne Cunningham MD Date/Time: 07/09/22 12:55 Surgeon: Duy Berry MD Pre Op Diagnosis: sepsis/uti Patient Data Age: 72 Gender: F Height: 1.63 m Weight: 115.4 kg Last Vital Signs Temp 96.9 F L 07/09/22 12:49 Pulse 74 07/09/22 12:49 Resp 20 07/09/22 12:49 BP 149/80 H 07/09/22 12:49 Pulse Ox 98 07/09/22 12:49 O2 Del Method Room Air 07/09/22 12:49 Allergies Allergy/AdvReac Type Severity Reaction Status Date / Time Penicillins Allergy Intermediate Swelling Verified 07/09/22 12:48 Home Medications Medication Instructions Recorded Confirmed Type Saccharomyces boulardii 250 mg 250 mg PO BID 07/05/22 07/05/22 History capsule alprazolam 0.5 mg tablet 0.5 mg PO HS 07/05/22 07/05/22 History aluminum-mag hydroxide-simethicone 30 ml PO Q6H PRN Heartburn 07/05/22 07/05/22 History 225 mg-200 mg-25 mg/5 mL oral susp apixaban 5 mg tablet (Eliquis) 5 mg PO BID 07/05/22 07/05/22 History atorvastatin 40 mg tablet 40 mg PO HS 07/05/22 07/05/22 History bisacodyl 10 mg rectal suppository 10 mg RECTAL DAILY PRN Constipation 07/05/22 07/05/22 History bupropion HCl 150 mg tablet,12 hr 150 mg PO DAILY 07/05/22 07/05/22 History sustained-release calcium 600 mg capsule 1,200 mg PO DAILY 07/05/22 07/05/22 History cholecalciferol (vitamin D3) 25 25 mcg PO DAILY 07/05/22 07/05/22 History mcg (1,000 unit) tablet cyanocobalamin (vitamin B-12) 1,000 mcg PO DAILY 07/05/22 07/05/22 History 1,000 mcg tablet diltiazem HCl 300 mg 300 mg PO DAILY 07/05/22 07/05/22 History capsule,extended release 24 hr esomeprazole magnesium 20 mg 20 mg PO DAILY 07/05/22 07/05/22 History capsule,delayed release ferrous sulfate 325 mg (65 mg 325 mg PO BID 07/05/22 07/05/22 History iron) tablet fluoxetine 20 mg capsule 20 mg PO DAILY 07/05/22 07/05/22 History folic acid 1 mg tablet 1 mg PO DAILY 07/05/22 07/05/22 History furosemide 80 mg tablet 80 mg PO DAILY 07/05/22 07/05/22 History gabapentin 100 mg capsule 100 mg PO BID 07/05/22 07/05/22 History hydrocodone 5 mg-acetaminophen 325 5 - 325 tablet PO BID 07/05/22 07/05/22 History mg tablet levothyroxine 75 mcg tablet 75 mcg PO DAILY 07/05/22 07/05/22 History losartan 25 mg tablet 25 mg PO DAILY 07/05/22 07/05/22 History magnesium citrate 296 ml PO DAILY PRN Constipation 07/05/22 07/05/22 History magnesium hydroxide 400 mg/5 mL 30 ml PO HS PRN Constipation 07/05/22 07/05/22 History oral suspension (Milk of Magnesia) magnesium oxide 400 mg PO DAILY 07/05/22 07/05/22 History mupirocin calcium 2 % nasal 1 ea intranasal QSHIFT 07/05/22 07/05/22 History ointment potassium chloride 20 mEq 40 meq PO TID 07/05/22 07/05/22 History tablet,extended release(part/cryst) ranolazine 1,000 mg 1,000 mg PO HS 07/05/22 07/05/22 History tablet,extended release,12 hr sodium chloride 0.9 % (flush) 10 ml IV Q12H 07/05/22 07/05/22 History (Normal Saline Flush 0.9 % injection syringe) sodium phosphates 19 gram-7 118 ml RECTAL ONCE PRN Constipation 07/05/22 07/05/22 History gram/118 mL enema (Fleet Enema) sotalol 80 mg tablet 80 mg PO BID 07/05/22 07/05/22 History sucralfate 1 gram tablet 1 g PO TID 07/05/22 07/05/22 History topiramate 50 mg tablet 50 mg PO BID 07/05/22 07/05/22 History trazodone 100 mg tablet 100 mg PO HS 07/05/22 07/05/22 History vancomycin 1 gram/200 mL in 2,250 mg IV Q48H 07/05/22 07/05/22 History dextrose 5 % intravenous piggyback Laboratory Tests 07/08/22 07/09/22 07/09/22 22:45 04:45 04:45 WBC 7.2 K/mm3 K/mm3 (4.5-10.0) RBC 2.58 M/mm3 L M/mm3 (4.2-5.4) Hgb 9.0 g/dL L g/dL (12.0-15.0) Hct 28.5 % L % (37.0-47.0) MCV 110.5 fl H fl (80-100) MCH 34.9 pg H pg (26-34) MCHC 31.6 g/dl L g/dl (32-36) RDW 15.8 % H %
[2022-07-09] MEDS: LACTATED RINGERS 1,000 ML 150 ML IV CONT (12:56)
--- NOTE | 2022-07-09 13:00 | P.PNAN_ITS ---
Anes - Initial Pre Proc Eval Procedure: Operation Date: 07/09/22 14:15 Proposed Procedures p Esophagogastroduodenoscopy - Dieudonne Cunningham MD Date/Time: 07/09/22 13:00 Surgeon: Duy Berry MD Pre Op Diagnosis: sepsis/uti Patient Data Age: 72 Gender: F Height: 1.63 m Weight: 115.4 kg Last Vital Signs Temp 96.9 F L 07/09/22 12:49 Pulse 74 07/09/22 12:49 Resp 20 07/09/22 12:49 BP 149/80 H 07/09/22 12:49 Pulse Ox 98 07/09/22 12:49 O2 Del Method Room Air 07/09/22 12:49 Allergies Allergy/AdvReac Type Severity Reaction Status Date / Time Penicillins Allergy Intermediate Swelling Verified 07/09/22 12:48 Home Medications Medication Instructions Recorded Confirmed Type Saccharomyces boulardii 250 mg 250 mg PO BID 07/05/22 07/05/22 History capsule alprazolam 0.5 mg tablet 0.5 mg PO HS 07/05/22 07/05/22 History aluminum-mag hydroxide-simethicone 30 ml PO Q6H PRN Heartburn 07/05/22 07/05/22 History 225 mg-200 mg-25 mg/5 mL oral susp apixaban 5 mg tablet (Eliquis) 5 mg PO BID 07/05/22 07/05/22 History atorvastatin 40 mg tablet 40 mg PO HS 07/05/22 07/05/22 History bisacodyl 10 mg rectal suppository 10 mg RECTAL DAILY PRN Constipation 07/05/22 07/05/22 History bupropion HCl 150 mg tablet,12 hr 150 mg PO DAILY 07/05/22 07/05/22 History sustained-release calcium 600 mg capsule 1,200 mg PO DAILY 07/05/22 07/05/22 History cholecalciferol (vitamin D3) 25 25 mcg PO DAILY 07/05/22 07/05/22 History mcg (1,000 unit) tablet cyanocobalamin (vitamin B-12) 1,000 mcg PO DAILY 07/05/22 07/05/22 History 1,000 mcg tablet diltiazem HCl 300 mg 300 mg PO DAILY 07/05/22 07/05/22 History capsule,extended release 24 hr esomeprazole magnesium 20 mg 20 mg PO DAILY 07/05/22 07/05/22 History capsule,delayed release ferrous sulfate 325 mg (65 mg 325 mg PO BID 07/05/22 07/05/22 History iron) tablet fluoxetine 20 mg capsule 20 mg PO DAILY 07/05/22 07/05/22 History folic acid 1 mg tablet 1 mg PO DAILY 07/05/22 07/05/22 History furosemide 80 mg tablet 80 mg PO DAILY 07/05/22 07/05/22 History gabapentin 100 mg capsule 100 mg PO BID 07/05/22 07/05/22 History hydrocodone 5 mg-acetaminophen 325 5 - 325 tablet PO BID 07/05/22 07/05/22 History mg tablet levothyroxine 75 mcg tablet 75 mcg PO DAILY 07/05/22 07/05/22 History losartan 25 mg tablet 25 mg PO DAILY 07/05/22 07/05/22 History magnesium citrate 296 ml PO DAILY PRN Constipation 07/05/22 07/05/22 History magnesium hydroxide 400 mg/5 mL 30 ml PO HS PRN Constipation 07/05/22 07/05/22 History oral suspension (Milk of Magnesia) magnesium oxide 400 mg PO DAILY 07/05/22 07/05/22 History mupirocin calcium 2 % nasal 1 ea intranasal QSHIFT 07/05/22 07/05/22 History ointment potassium chloride 20 mEq 40 meq PO TID 07/05/22 07/05/22 History tablet,extended release(part/cryst) ranolazine 1,000 mg 1,000 mg PO HS 07/05/22 07/05/22 History tablet,extended release,12 hr sodium chloride 0.9 % (flush) 10 ml IV Q12H 07/05/22 07/05/22 History (Normal Saline Flush 0.9 % injection syringe) sodium phosphates 19 gram-7 118 ml RECTAL ONCE PRN Constipati
[2022-07-09 13:06] LABS: Glucose Point of Care 80 mg/dl (65-105)
[2022-07-09 14:29] LABS: Glucose Point of Care 80 mg/dl (65-105)
[2022-07-09] MEDS: RANOLAZINE 500 MG TAB.ER.12H 1000 MG PO (21:39)
[2022-07-09] MEDS: SACUBITRIL/VALSARTAN 24-26 MG TABLET 1 TAB PO (21:39)
[2022-07-09] MEDS: traZODone HCL 50 MG TABLET 100 MG PO (21:39)
[2022-07-09] MEDS: ATORVASTATIN 40 MG TABLET PO (21:39)
[2022-07-09] MEDS: ENOXAPARIN 120 MG/0.8 ML SYRINGE 115 MG SUB-Q (21:40)
[2022-07-09] MEDS: ALPRAZolam (*CRX) 0.5 MG TABLET PO (21:42)
[2022-07-09 23:25] LABS: Vancomycin Random 16.6 ug/mL (10-20)
[2022-07-10] VITALS (9 sets, daily range): BP systolic 90–121; BP diastolic 60–67; PULSE 64–93; RESP 12–20; TEMP 35.8–36.6; O2SAT 96–100
--- NOTE | 2022-07-10 00:02 | PC.NURSE ---
Vanc trough 16.6. Spoke with Amado in pharmacy. Will hold Vanc dose scheduled at 2200.
[2022-07-10] MEDS: LEVOTHYROXINE SODIUM 75 MCG TABLET PO (06:13)
[2022-07-10] MEDS: SUCRALFATE 1 GM TABLET PO ×3 (06:13→16:59)
[2022-07-10 06:15] LABS: Basophils Absolute Auto 0.1 K/mm3 (0.0-0.1); Basophils Percent Auto 1.3 % (0.2-1.2); Eosinophils Absolute Auto 0.2 K/mm3 (0-0.3); Eosinophils Percent Auto 2.3 % (0-4.4); Hematocrit 31.8 % (37.0-47.0); Hemoglobin 9.8 g/dL (12.0-15.0); Immature Granulocyte Absolute 0.41 K/mm3 (0.00-0.031); Immature Granulocyte Percent A 4.8 % (0-0.5); Lymphocytes Absolute Auto 1.99 K/mm3 (0.9-3.2); Lymphocytes Percent Auto 23.3 % (18.3-44.2); Mean Corpuscular HGB Conc 30.8 g/dl (32-36); Mean Corpuscular Hemoglobin 34.1 pg (26-34); Mean Corpuscular Volume 110.8 fl (80-100); Mean Platelet Volume 12.9 fl (7.4-10.4); Monocytes Percent Auto 11.9 % (2.6-8.5); Neutrophils Absolute Auto 4.8 K/mm3 (1.3-6.7); Neutrophils Percent Auto 56.4 % (45.5-73.1); Nucleated Red Blood Cells Perc 0.2 % (0.0-0.2); Platelet Count Result 264 k/mm3 (150-375); Red Blood Count 2.87 M/mm3 (4.2-5.4); Red Cell Distribution Width 15.9 % (11.5-14.5); White Blood Count 8.5 K/mm3 (4.5-10.0)
[2022-07-10 06:27] LABS: Alanine Aminotransferase 22 U/L (6-35); Albumin Level 2.3 g/dL (3.5-5.1); Alkaline Phosphatase 110 U/L (38-126); Anion Gap 5 mmol/L (8-16); Aspartate Amino Transferase 30 U/L (14-36); Bilirubin,Total 0.4 mg/dL (0.2-1.3); Blood Urea Nitrogen 16 mg/dL (7-17); Calcium 9.1 mg/dL (8.4-10.2); Carbon Dioxide 17 mmol/L (22-30); Chloride 116 mmol/L (98-107); Estimated CRCL calculation 46 ml/min; Estimated Glomerular Filt Rate 44; Glucose 81 mg/dL (65-110); Sodium 138 mmol/L (137-145)
--- NOTE | 2022-07-10 08:29 | P.PNIM_ITS ---
Progress Note: A&P Assessment and Plan (1) Parotiditis: Code(s): K11.20 - Sialoadenitis, unspecified Status: Acute Assessment and Plan: Improving, continue antibiotics, appreciate ENT consult, compresses and milking of parotid gland. Would culture growing methicillin resistant staphylococcus sensitive to vancomycin and tetracyclines. 07/07 - Patient continues to improved on vancomycin and cefepime. 07/09: Discontinue cefepime. Continue vancomycin while hospitalized. Will plan for a total duration of 7-10 days from 07/06/22. (2) Sepsis: Code(s): A41.9 - Sepsis, unspecified organism Status: Acute Assessment and Plan: Patient has recent history of suspect endocarditis and treatment for MRSA two days prior to presentation to the emergency department. 1/2 cultures from 07/04 with staphylococcus capitis but repeat cultures for 07/05/22 prior to increasing dose of cefepime continue to have no growth. Stap capitis is likely a contaminant. -Continue vancomycin - pharmacy to dose (3) Metabolic encephalopathy: Code(s): G93.41 - Metabolic encephalopathy Status: Acute Assessment and Plan: Patieint was fully alert and oriented today. She should be able to participate in CHELA. (4) Clostridial infection: Status: Acute Assessment and Plan: C. diff positive today. Already on probiotic. -Fidaxomicin 200 mg BID x 10 days (5) Positive blood culture: Code(s): R78.81 - Bacteremia Status: Acute Assessment and Plan: 1/2 set of blood cultures from 07/04/22 growing staphylococcus capitis. Patient has recent history of suspect endocarditis and treatment for MRSA two days prior to presentation to the emergency department. Repeat blood cultures from 07/05/22 have no growth to date. This was likely a contaminant. -Continue vancomycin - pharmacy to dose for wound (6) Elevated troponin: Code(s): R77.8 - Other specified abnormalities of plasma proteins Status: Acute Assessment and Plan: Echo with EF 15-20%, which cardiology believes is likely stress cardiomyopathy and not ACS but does recommend a heart catheterization in the future. Patient is without chest pain. Has a pacemaker, but does she need a life vest prior to discharge? Will discuss with Cardiology. (7) Type 2 diabetes mellitus: Code(s): E11.9 - Type 2 diabetes mellitus without complications Status: Acute Assessment and Plan: A1c is 4.9, no need for Accu-Cheks or insulin (8) Atrial fibrillation: Code(s): I48.91 - Unspecified atrial fibrillation Status: Acute Assessment and Plan: Having some tachycardia. Cardiology has increased metoprolol to 50 mg BID and discontinued sotalol. Home apixaban held starting 07/07/22 due to concern for bleeding and need for CHELA. (9) Bimalleolar fracture of right ankle: Qualifiers: Encounter type: subsequent encounter Fracture type: closed Fracture healing: with routine healing Qualified Code(s): S82.841D - Displaced bimalleolar fracture of right lower leg, subsequent encounter for closed fracture with routine healing Code(s): S82.841A - Displaced bimalleolar fracture of right lower leg, initial encounter for closed fracture Status: Acute Assessment and Plan: Appreciate orthopedic consultation, x-ray show good healing, cast can be removed and patient can be placed in a fracture boot for weight-bearing as tolerated with PT (10) Elevated serum creatinine: Code(s): R79.89 -
[2022-07-10] MEDS: HYDROcodone/acetaminophen (*CRX) 5-325 MG TABLET 1 TAB PO ×2 (08:51→17:02)
[2022-07-10] MEDS: GABAPENTIN 100 MG CAPSULE PO (08:52)
[2022-07-10] MEDS: ENOXAPARIN 120 MG/0.8 ML SYRINGE 115 MG SUB-Q ×2 (08:52→21:31)
[2022-07-10] MEDS: METOPROLOL TARTRATE 50 MG TAB PO (08:52)
[2022-07-10] MEDS: TOPIRAMATE 25 MG TABLET 50 MG PO ×2 (08:52→17:00)
[2022-07-10] MEDS: SACUBITRIL/VALSARTAN 24-26 MG TABLET 1 TAB PO ×2 (08:52→21:28)
[2022-07-10] MEDS: CYANOCOBALAMIN 1,000 MCG TABLET 1000 MCG PO (08:52)
[2022-07-10] MEDS: SACCHAROMYCES BOULARDII 250 MG CAPSULE PO ×2 (08:52→16:59)
[2022-07-10] MEDS: FIDAXOMICIN 200 MG TABLET PO ×2 (08:52→21:27)
[2022-07-10] MEDS: CALCIUM CARBONATE (OSCAL) 500 MG TABLET 1000 MG PO (08:52)
[2022-07-10] MEDS: FERROUS SULFATE 324 MG TABLET PO ×2 (08:52→17:00)
[2022-07-10] MEDS: MUPIROCIN 2% OINT 22 GM TUBE 1 APPLIC EACH NARE ×2 (08:52→21:28)
[2022-07-10] MEDS: buPROPion HCL SR (12 HR) 150 MG TAB PO (08:53)
[2022-07-10] MEDS: FOLIC ACID 1 MG TABLET PO (08:53)
[2022-07-10] MEDS: PANTOPRAZOLE 40 MG TABLET PO (08:53)
[2022-07-10] MEDS: CHOLECALCIFEROL 1,000 UNITS TABLET 1000 UNITS PO (08:53)
[2022-07-10] MEDS: FLUoxetine HCL 20 MG CAPSULE PO (08:53)
[2022-07-10] MEDS: MAGNESIUM OXIDE 400 MG TABLET PO (08:53)
[2022-07-10] MEDS: FUROSEMIDE 40 MG TABLET PO (09:40)
[2022-07-10 20:25] LABS: Glucose Point of Care 116 mg/dl (65-105)
[2022-07-10] MEDS: RANOLAZINE 500 MG TAB.ER.12H 1000 MG PO (21:27)
[2022-07-10] MEDS: ATORVASTATIN 40 MG TABLET PO (21:28)
[2022-07-10] MEDS: MICONAZOLE NITRATE 2% VAGINAL CREAM 45 GM TUBE 1 APPFUL VAGINAL (21:28)
[2022-07-10] MEDS: ALPRAZolam (*CRX) 0.5 MG TABLET PO (22:04)
[2022-07-10 22:42] LABS: Vancomycin Trough 14.7 ug/mL (10.0-20.0)
[2022-07-11 04:06] VITALS: BP 92/44; PULSE 107; RESP 20; TEMP 36.2; O2SAT 97
[2022-07-11 05:28] LABS: Basophils Absolute Auto 0.1 K/mm3 (0.0-0.1); Eosinophils Absolute Auto 0.2 K/mm3 (0-0.3); Eosinophils Percent Auto 1.9 % (0-4.4); Hematocrit 32.2 % (37.0-47.0); Hemoglobin 10.5 g/dL (12.0-15.0); Immature Granulocyte Absolute 0.53 K/mm3 (0.00-0.031); Immature Granulocyte Percent A 4.5 % (0-0.5); Lymphocytes Absolute Auto 3.01 K/mm3 (0.9-3.2); Lymphocytes Percent Auto 25.3 % (18.3-44.2); Mean Corpuscular HGB Conc 32.6 g/dl (32-36); Mean Corpuscular Hemoglobin 34.7 pg (26-34); Mean Corpuscular Volume 106.3 fl (80-100); Mean Platelet Volume 12.2 fl (7.4-10.4); Monocytes Absolute Auto 1.1 K/mm3 (0.1-0.6); Monocytes Percent Auto 9.4 % (2.6-8.5); Neutrophils Absolute Auto 6.9 K/mm3 (1.3-6.7); Neutrophils Percent Auto 57.9 % (45.5-73.1); Nucleated Red Blood Cells Perc 0.3 % (0.0-0.2); Platelet Count Result 268 k/mm3 (150-375); Red Blood Count 3.03 M/mm3 (4.2-5.4); Red Cell Distribution Width 15.8 % (11.5-14.5); White Blood Count 11.9 K/mm3 (4.5-10.0)
[2022-07-11 05:43] LABS: Alanine Aminotransferase 21 U/L (6-35); Albumin Level 2.2 g/dL (3.5-5.1); Alkaline Phosphatase 109 U/L (38-126); Anion Gap 9 mmol/L (8-16); Aspartate Amino Transferase 33 U/L (14-36); Bilirubin,Total 0.3 mg/dL (0.2-1.3); Blood Urea Nitrogen 15 mg/dL (7-17); Calcium 8.8 mg/dL (8.4-10.2); Carbon Dioxide 17 mmol/L (22-30); Chloride 110 mmol/L (98-107); Estimated CRCL calculation 47 ml/min; Estimated Glomerular Filt Rate 44; Glucose 98 mg/dL (65-110); Sodium 136 mmol/L (137-145)
[2022-07-11] MEDS: ACETAMINOPHEN 500 MG TABLET 1000 MG PO (05:45)
[2022-07-11] MEDS: LEVOTHYROXINE SODIUM 75 MCG TABLET PO (05:45)
[2022-07-11] MEDS: SUCRALFATE 1 GM TABLET PO ×3 (05:46→16:30)
--- NOTE | 2022-07-11 08:23 | PM.IMPN ---
Progress Note: A&P Assessment and Plan (1) Parotiditis: Code(s): K11.20 - Sialoadenitis, unspecified Status: Acute Assessment and Plan: Improving, continue antibiotics, appreciate ENT consult, compresses and milking of parotid gland. Would culture growing methicillin resistant staphylococcus sensitive to vancomycin and tetracyclines. 07/07 - Patient continues to improved on vancomycin and cefepime. 07/09: Discontinue cefepime. Continue vancomycin while hospitalized. Will plan for a total duration of 7-10 days from 07/06/22. 07/11: WCX MRSA sensitive to only vancomycin & bactrim. Will continue vancomycin for now. (2) Sepsis: Code(s): A41.9 - Sepsis, unspecified organism Status: Acute Assessment and Plan: Patient has recent history of suspect endocarditis and treatment for MRSA two days prior to presentation to the emergency department. 1/2 cultures from 07/04 with staphylococcus capitis but repeat cultures for 07/05/22 prior to increasing dose of cefepime finalized with no growth. Stap capitis is likely a contaminant. -Continue vancomycin - pharmacy to dose (3) Metabolic encephalopathy: Code(s): G93.41 - Metabolic encephalopathy Status: Acute Assessment and Plan: Patieint was fully alert and oriented today. She should be able to participate in CHELA. (4) Clostridial infection: Status: Acute Assessment and Plan: C. diff positive today. Already on probiotic. -Fidaxomicin 200 mg BID x 10 days (5) Positive blood culture: Code(s): R78.81 - Bacteremia Status: Acute Assessment and Plan: 1/2 set of blood cultures from 07/04/22 growing staphylococcus capitis. Patient has recent history of suspect endocarditis and treatment for MRSA two days prior to presentation to the emergency department. Repeat blood cultures from 07/05/22 have no growth to date. This was likely a contaminant. -Continue vancomycin - pharmacy to dose for wound (6) Elevated troponin: Code(s): R77.8 - Other specified abnormalities of plasma proteins Status: Acute Assessment and Plan: Echo with EF 15-20%, which cardiology believes is likely stress cardiomyopathy and not ACS but does recommend a heart catheterization in the future. Patient is without chest pain. Has a pacemaker, but does she need a life vest prior to discharge? Will discuss with Cardiology. (7) Type 2 diabetes mellitus: Code(s): E11.9 - Type 2 diabetes mellitus without complications Status: Acute Assessment and Plan: A1c is 4.9, no need for Accu-Cheks or insulin (8) Atrial fibrillation: Code(s): I48.91 - Unspecified atrial fibrillation Status: Acute Assessment and Plan: Having some tachycardia. Cardiology has increased metoprolol to 50 mg BID and discontinued sotalol. Home apixaban held starting 07/07/22 due to concern for bleeding and need for CHELA. (9) Bimalleolar fracture of right ankle: Qualifiers: Encounter type: subsequent encounter Fracture type: closed Fracture healing: with routine healing Qualified Code(s): S82.841D - Displaced bimalleolar fracture of right lower leg, subsequent encounter for closed fracture with routine healing Code(s): S82.841A - Displaced bimalleolar fracture of right lower leg, initial encounter for closed fracture Status: Acute Assessment and Plan: Appreciate orthopedic consultation, x-ray show good healing, cast can be removed and patient can be placed in a fracture boot for weight-bearing as tolerated with PT (10) Elevated serum creatinine: Code(s): R79.89 - Other specified abnormal findings of blood chemistry Status: Acute Assessment and Plan: Baseline creatinine was around 0.8 in May 2022. Renal ultrasound unable to visualize left kidney due to body habitus and notes normal right kidney without hydronephrosis. No evidence of
[2022-07-11] MEDS: SACCHAROMYCES BOULARDII 250 MG CAPSULE PO ×2 (09:48→16:30)
[2022-07-11] MEDS: CHOLECALCIFEROL 1,000 UNITS TABLET 1000 UNITS PO (09:48)
[2022-07-11] MEDS: HYDROcodone/acetaminophen (*CRX) 5-325 MG TABLET 1 TAB PO ×2 (09:48→16:33)
[2022-07-11] MEDS: CALCIUM CARBONATE (OSCAL) 500 MG TABLET 1000 MG PO (09:49)
[2022-07-11] MEDS: MAGNESIUM OXIDE 400 MG TABLET PO (09:49)
[2022-07-11 09:50] VITALS: PULSE 62
[2022-07-11] MEDS: FOLIC ACID 1 MG TABLET PO (09:50)
[2022-07-11] MEDS: METOPROLOL TARTRATE 50 MG TAB PO (09:50)
[2022-07-11] MEDS: FIDAXOMICIN 200 MG TABLET PO ×2 (09:50→21:07)
[2022-07-11] MEDS: SACUBITRIL/VALSARTAN 24-26 MG TABLET 1 TAB PO ×2 (09:52→21:07)
[2022-07-11] MEDS: TOPIRAMATE 25 MG TABLET 50 MG PO ×2 (09:53→16:31)
[2022-07-11] MEDS: FERROUS SULFATE 324 MG TABLET PO ×2 (09:53→16:30)
[2022-07-11] MEDS: PANTOPRAZOLE 40 MG TABLET PO (09:53)
[2022-07-11] MEDS: CYANOCOBALAMIN 1,000 MCG TABLET 1000 MCG PO (09:53)
[2022-07-11] MEDS: ENOXAPARIN 120 MG/0.8 ML SYRINGE 115 MG SUB-Q ×2 (09:54→21:07)
[2022-07-11] MEDS: MUPIROCIN 2% OINT 22 GM TUBE 1 APPLIC EACH NARE ×2 (09:57→21:07)
--- NOTE | 2022-07-11 10:12 | PCOTNOTE ---
Patient is bedbound and a [facility]. Spoke with Dr. Prieto who agreeable to discharge at this time due to no skilled need for Occupational Therapy due to patient is at functional baseline.
--- NOTE | 2022-07-11 10:34 | PCPTNOTE ---
Patient is bedbound and a senior living resident at a [facility]. Spoke with Dr. Prieto who agreeable to discharge at this time due to no skilled need for Physical therapy services as patient is at functional baseline.
[2022-07-11 14:00] VITALS: PULSE 115; RESP 18; TEMP 36.1; O2SAT 100
--- NOTE | 2022-07-11 16:18 | PM.PNCARD ---
Progress Note: A&P Assessment and Plan (1) Cardiomyopathy: Code(s): I42.9 - Cardiomyopathy, unspecified Status: Acute Assessment and Plan: New cardiomyopathy, EF 15-20% with wall motion abnormalities possible stress cardiomyopathy ( takotsubo cardiomyopathy ) versus ischemic cardiomyopathy/ACS taking Entresto and metoprolol, furosemide 80 mg daily, atorvastatin, ranolazine, Lovenox Has been hemodynamically stable Eventual cardiac catheterization (2) Atrial fibrillation: Code(s): I48.91 - Unspecified atrial fibrillation Status: Acute Assessment and Plan: Paroxysmal atrial fibrillation, rate controlled anticoagulated with Lovenox sotalol and Eliquis discontinued sounds like she is in AFib today. (3) Parotiditis: Code(s): K11.20 - Sialoadenitis, unspecified Status: Acute Assessment and Plan: recovering. (4) Metabolic encephalopathy: Code(s): G93.41 - Metabolic encephalopathy Status: Acute Assessment and Plan: Slowly recovering. (5) Positive blood culture: Code(s): R78.81 - Bacteremia Status: Acute Assessment and Plan: History of sepsis, Presumed endocarditis eventual CHELA to evaluate for endocarditis. Subjective Date/time seen: 07/11/22 16:18 Interval history: Follow-up for sepsis, rule out endocarditis. New cardiomyopathy, possible Tako-Tsubo CM vs. CAD. EKG showed diffuse T wave abnormalities c/w/ ischemia and trop up to 3.6. Paroxysmal atrial fib. 07/08/2022: Patient reports improvement in her facial pain. Can open her mouth and swallow okay without issue. No chest pain or shortness of breath. Has right ankle pain from her fracture. FOB +. 07/09/2022: Patient is confused this morning.? Thinks she is at [facility].? Complaining of pain in her legs.? She denies any chest pain, shortness of breath, palpitations.? Date of Service 07/11/2022: Patient a little more awake this morning, denies any chest pain or shortness of breath. EGD showed nonerosive reflux disease, from gastric polyps, mild antral gastritis. Review of Systems Review of Systems: Denies any chest pain, shortness of breath, abdominal pain, dizziness, bleeding. Exam Const: General: lethargic and tired appearing Nutritional Appearance: obese Orientation/consciousness: oriented to person and oriented to time HENMT: Mouth: Yes moist mucous membranes Eyes: EOM: EOMs intact bilaterally Resp: Effort & Inspection: normal respiratory effort Auscultation: clear to auscultation bilaterally Cardio: Rate: regular rate Rhythm: abnormal rhythm irregularly irregular GI: GI Palp: Yes Soft to palpation and No Tenderness to palpation present (GI) Skin: General skin exam: normal color and no rashes or lesions noted Neuro: General: oriented to person, No oriented to place ( Think she is a [facility]), oriented to time ( knows it is June) and confusion Cognition (Neuro): abnormal cognition ( very slow to respond to question) Extrem: General: edema Other: mild lower extremity edema Psych: Speech and movement: Slowed speech present (Psych) Affect: Indifferent affect present Objective Data Vital Signs Vital Signs: Vital Signs - 24 hr 07/10/22 20:25 07/10/22 20:00 07/11/22 04:06 Temperature 97.7 F 97.1 F L Pulse Rate 93 93 107 H Respiratory Rate 16 16 20 Blood Pressure 98/60 L 92/44 L Pulse Oximetry 100 100 97 Oxygen Delivery Room Air 07/11/22 09:50 07/11/22 14:00 07/11/22 09:50 Temperature 97 F L Pulse Rate 62 115 H Respiratory Rate 18 Blood Pressure Pulse Oximetry 100 Oxygen Delivery Room Air Intake/Output Intake/Output: Intake & Output 07/08/22 07/09/22 07/10/22 07/11/22 23:59 23:59 23:59 23:59 Intake Total 920 340 420 870 Output Total 2100 1950 850 550 Balance -1180 -2870 -430 320 Meds/Results Medications: Active Medications Generic Name Dose Rou
[2022-07-11 20:00] VITALS: PULSE 88; RESP 16; O2SAT 100
[2022-07-11 21:07] VITALS: BP 96/60; PULSE 88; RESP 16; TEMP 36.3; O2SAT 100
[2022-07-11] MEDS: ATORVASTATIN 40 MG TABLET PO (21:07)
[2022-07-11] MEDS: RANOLAZINE 500 MG TAB.ER.12H 1000 MG PO (21:07)
[2022-07-11] MEDS: ALPRAZolam (*CRX) 0.5 MG TABLET PO (21:07)
[2022-07-11] MEDS: MICONAZOLE NITRATE 2% VAGINAL CREAM 45 GM TUBE 1 APPFUL VAGINAL (21:08)
[2022-07-11 21:53] LABS: Glucose Point of Care 126 mg/dl (65-105)
[2022-07-12 04:10] VITALS: BP 93/47; PULSE 92; RESP 18; TEMP 36.4; O2SAT 99
[2022-07-12] MEDS: SUCRALFATE 1 GM TABLET PO ×2 (05:44→17:43)
[2022-07-12] MEDS: LEVOTHYROXINE SODIUM 75 MCG TABLET PO (05:45)
[2022-07-12 06:00] LABS: Hematocrit 33.5 % (37.0-47.0); Hemoglobin 10.8 g/dL (12.0-15.0); Mean Corpuscular HGB Conc 32.2 g/dl (32-36); Mean Corpuscular Volume 108.4 fl (80-100); Platelet Count Result 285 k/mm3 (150-375); Red Blood Count 3.09 M/mm3 (4.2-5.4); Red Cell Distribution Width 15.9 % (11.5-14.5); White Blood Count 8.8 K/mm3 (4.5-10.0)
[2022-07-12 06:11] LABS: Alanine Aminotransferase 23 U/L (6-35); Albumin Level 2.1 g/dL (3.5-5.1); Alkaline Phosphatase 112 U/L (38-126); Anion Gap 5 mmol/L (8-16); Aspartate Amino Transferase 41 U/L (14-36); Bilirubin,Total 0.4 mg/dL (0.2-1.3); Blood Urea Nitrogen 16 mg/dL (7-17); Calcium 8.8 mg/dL (8.4-10.2); Carbon Dioxide 19 mmol/L (22-30); Chloride 111 mmol/L (98-107); Estimated CRCL calculation 43 ml/min; Estimated Glomerular Filt Rate 40; Glucose 105 mg/dL (65-110); Potassium 4.2 mmol/L (3.4-5.0); Sodium 135 mmol/L (137-145)
[2022-07-12 06:40] LABS: Band Neutrophils Percent 8 % (0-6); Lymphocytes Absolute Manual 0.52 K/mm3 (1.1-4.5); Monocytes Absolute Manual 0.35 K/mm3 (0.1-0.90); Monocytes Percent Manual 4 % (3-9); Neutrophils Absolute Manual 7.92 K/mm3 (1.7-7.2); Neutrophils Percent Manual 82 % (46-73); Total Cells Counted 100
[2022-07-12 06:41] LABS: Platelet Estimate Adequate (Adequate); Schistocytes None Seen (NORMAL)
[2022-07-12 06:42] LABS: Anisocytosis 1+ (NORMAL); Hypochromasia 1+ (NORMAL)
--- NOTE | 2022-07-12 08:16 | PM.IMPN ---
Progress Note: A&P Assessment and Plan (1) Parotiditis: Code(s): K11.20 - Sialoadenitis, unspecified Status: Acute Assessment and Plan: Improving, continue antibiotics, appreciate ENT consult, compresses and milking of parotid gland. Would culture growing methicillin resistant staphylococcus sensitive to vancomycin and tetracyclines. 07/07 - Patient continues to improved on vancomycin and cefepime. 07/09: Discontinue cefepime. Continue vancomycin while hospitalized. Will plan for a total duration of 7-10 days from 07/06/22. 07/11: WCX MRSA sensitive to only vancomycin & bactrim. Will continue vancomycin for now. 07/12: Will change to oral doxycycline to continue treatment for a total of 10 days (2) Sepsis: Code(s): A41.9 - Sepsis, unspecified organism Status: Acute Assessment and Plan: Patient has recent history of suspect endocarditis and treatment for MRSA two days prior to presentation to the emergency department. 1/2 cultures from 07/04 with staphylococcus capitis but repeat cultures for 07/05/22 prior to increasing dose of cefepime finalized with no growth. Stap capitis is likely a contaminant. Resolved. (3) Metabolic encephalopathy: Code(s): G93.41 - Metabolic encephalopathy Status: Acute Assessment and Plan: Resolved. (4) Clostridial infection: Status: Acute Assessment and Plan: C. diff positive today. Already on probiotic. -Fidaxomicin 200 mg BID x 10 days (5) Positive blood culture: Code(s): R78.81 - Bacteremia Status: Acute Assessment and Plan: 1/2 set of blood cultures from 07/04/22 growing staphylococcus capitis. Patient has recent history of suspect endocarditis and treatment for MRSA two days prior to presentation to the emergency department. Repeat blood cultures from 07/05/22 have no growth to date. This was likely a contaminant. Resolved. (6) Elevated troponin: Code(s): R77.8 - Other specified abnormalities of plasma proteins Status: Acute Assessment and Plan: Echo with EF 15-20%, which cardiology believes is likely stress cardiomyopathy and not ACS but does recommend a heart catheterization in the future. Patient is without chest pain. -Planned for CHELA and heart cath tomorrow (7) Type 2 diabetes mellitus: Code(s): E11.9 - Type 2 diabetes mellitus without complications Status: Acute Assessment and Plan: A1c is 4.9, no need for Accu-Cheks or insulin (8) Atrial fibrillation: Code(s): I48.91 - Unspecified atrial fibrillation Status: Acute Assessment and Plan: Having some tachycardia. Cardiology has increased metoprolol to 50 mg BID and discontinued sotalol. Home apixaban held starting 07/07/22 due to concern for bleeding and need for CHELA. -Continue enoxaparin (9) Bimalleolar fracture of right ankle: Qualifiers: Encounter type: subsequent encounter Fracture type: closed Fracture healing: with routine healing Qualified Code(s): S82.841D - Displaced bimalleolar fracture of right lower leg, subsequent encounter for closed fracture with routine healing Code(s): S82.841A - Displaced bimalleolar fracture of right lower leg, initial encounter for closed fracture Status: Acute Assessment and Plan: Appreciate orthopedic consultation, x-ray show good healing, cast can be removed and patient can be placed in a fracture boot for weight-bearing as tolerated with PT (10) Elevated serum creatinine: Code(s): R79.89 - Other specified abnormal findings of blood chemistry Status: Acute Assessment and Plan: Baseline creatinine was around 0.8 in May 2022. Renal ultrasound unable to visualize left kidney due to body habitus and notes normal right kidney without hydronephrosis. No evidence of right sided renal artery stenosis. Left renal artery not well visualized. Creatinine downtrending.
[2022-07-12] MEDS: HYDROcodone/acetaminophen (*CRX) 5-325 MG TABLET 1 TAB PO ×2 (08:58→17:49)
[2022-07-12] MEDS: SACCHAROMYCES BOULARDII 250 MG CAPSULE PO ×2 (09:02→17:44)
[2022-07-12] MEDS: SACUBITRIL/VALSARTAN 24-26 MG TABLET 1 TAB PO ×2 (09:03→20:25)
[2022-07-12] MEDS: PANTOPRAZOLE 40 MG TABLET PO (09:03)
[2022-07-12] MEDS: CHOLECALCIFEROL 1,000 UNITS TABLET 1000 UNITS PO (09:03)
[2022-07-12 09:08] VITALS: PULSE 118
[2022-07-12] MEDS: CALCIUM CARBONATE (OSCAL) 500 MG TABLET 1000 MG PO (09:08)
[2022-07-12] MEDS: MAGNESIUM OXIDE 400 MG TABLET PO (09:08)
[2022-07-12] MEDS: CYANOCOBALAMIN 1,000 MCG TABLET 1000 MCG PO (09:08)
[2022-07-12] MEDS: METOPROLOL TARTRATE 50 MG TAB PO ×2 (09:08→20:27)
[2022-07-12] MEDS: FIDAXOMICIN 200 MG TABLET PO ×2 (09:08→20:23)
[2022-07-12] MEDS: TOPIRAMATE 25 MG TABLET 50 MG PO ×2 (09:09→17:44)
[2022-07-12] MEDS: FOLIC ACID 1 MG TABLET PO (09:09)
[2022-07-12] MEDS: ENOXAPARIN 120 MG/0.8 ML SYRINGE 115 MG SUB-Q (09:10)
[2022-07-12] MEDS: TOLNAFTATE 1% POWDER 45 GM BTL 1 APPLIC TOPICAL ×2 (09:10→20:24)
[2022-07-12] MEDS: FERROUS SULFATE 324 MG TABLET PO ×2 (09:10→17:44)
[2022-07-12] MEDS: MUPIROCIN 2% OINT 22 GM TUBE 1 APPLIC EACH NARE ×2 (09:11→20:24)
[2022-07-12 10:25] VITALS: BP 116/59; PULSE 90; RESP 18; TEMP 36.1; O2SAT 97
--- NOTE | 2022-07-12 10:27 | PM.PNCARD ---
Progress Note: A&P Assessment and Plan (1) Cardiomyopathy: Code(s): I42.9 - Cardiomyopathy, unspecified Status: Acute (2) Clostridial infection: Status: Acute (3) Heart failure with reduced ejection fraction: Code(s): I50.20 - Unspecified systolic (congestive) heart failure Status: Acute (4) Coronary artery disease: Code(s): I25.10 - Atherosclerotic heart disease of [place] coronary artery without angina pectoris Status: Acute (5) Atrial fibrillation: Code(s): I48.91 - Unspecified atrial fibrillation Status: Acute (6) Type 2 diabetes mellitus: Code(s): E11.9 - Type 2 diabetes mellitus without complications Status: Acute (7) Elevated troponin: Code(s): R77.8 - Other specified abnormalities of plasma proteins Status: Acute (8) Parotiditis: Code(s): K11.20 - Sialoadenitis, unspecified Status: Acute (9) Hypertension: Code(s): I10 - Essential (primary) hypertension Status: Acute Plan Will plan for CHELA + coronary angiography tomorrow (07/13). CHELA with Anesthesia team assistance, scheduled for 9AM. Will do LHC after CHELA. Continue statin, lasix, ranolazine, entresto, metoprolol. Holding lovenox in preparation for cath tomorrow. Metoprolol tartrate will need to be switched to metoprolol succinate prior to discharge given reduced LVEF. Subjective Date/time seen: 07/12/22 10:27 Interval history: Patient sitting up trying to eat breakfast, but does not have much of an appetite. No chest pain or shortness of breath. Swallows meds without issue. Review of Systems Review of Systems: All systems reviewed & are unremarkable except as noted in HPI and below (subjective) Exam Const: General: no acute distress Neck: Neck: no JVD Resp: Effort & Inspection: normal respiratory effort Auscultation: diminished lung sounds Cardio: Rate: regular rate Rhythm: regular rhythm Heart sounds: no murmurs Skin: General skin exam: normal color Neuro: Other: Slow speech Psych: Other: Flat affect Objective Data Vital Signs Vital Signs: Vital Signs - 24 hr 07/11/22 14:00 07/11/22 21:07 07/11/22 20:00 Temperature 36.1 C L 36.3 C L Pulse Rate 115 H 88 88 Respiratory Rate 18 16 16 Blood Pressure 96/60 L Pulse Oximetry 100 100 100 Oxygen Delivery Room Air 07/12/22 04:10 07/12/22 09:08 Temperature 36.4 C Pulse Rate 92 118 H Respiratory Rate 18 Blood Pressure 93/47 L Pulse Oximetry 99 Oxygen Delivery Intake/Output Intake/Output: Intake & Output 07/09/22 07/10/22 07/11/22 07/12/22 23:59 23:59 23:59 23:59 Intake Total 443 367 9805 760 Output Total 1950 850 850 900 Balance -1610 -430 260 -140 Meds/Results Medications: Active Medications Generic Name Dose Route Start Last Admin Trade Name Freq PRN Reason Stop Dose Admin Hydrocodone Bitart/Acetaminophen 1 tab 07/06/22 09:00 07/12/22 08:58 Hydrocodone/Acetaminophen (*Crx) 5-325 Mg Tablet PO 1 tab BID MAY Administration Al Hydrox/Mg Hydrox/Simethicone 30 ml 07/05/22 17:36 Mag Hydrox/Al Hydrox/Simeth 30 Ml Udc PO Q6H PRN Heartburn Alprazolam 0.5 mg 07/05/22 21:00 07/11/22 21:07 Alprazolam (*Crx) 0.5 Mg Tablet PO 0.5 mg HS MAY Administration Atorvastatin Calcium 40 mg 07/05/22 21:00 07/11/22 21:07 Atorvastatin 40 Mg Tablet PO 40 mg HS MAY Administration Bisacodyl 10 mg 07/05/22 17:36 Bisacodyl 10 Mg Suppository RECTAL DAILY PRN Constipation Bupropion HCl 150 mg 07/06/22 09:00 07/10/22 08:53 Bupropion Hcl Sr (12 Hr) 150 Mg Tab PO 150 mg DAILY MAY Administration Calcium Carbonate 1,000 mg 07/06/22 09:00 07/12/22 09:08 Calcium Carbonate (Oscal) 500 Mg Tablet PO 08/05/22 08:59 1,000 mg DAILY MAY Administration Clotrimazole 1 applic 07/12/22 10:00 Clotrimazole/Betamet Dip Lot 30 Ml TOPICAL Q12HR MAY Cyanocobalamin 1,000 mcg 06/18
[2022-07-12 10:33] LABS: INR 1.3; Prothrombin Time 15.5 Seconds (11.1-14.7)
--- NOTE | 2022-07-12 10:47 | PCNFU ---
Nutrition Follow-Up Complete: Inadequate oral intake related to poor appetite as evidence by nursing report Goal:intake of nutritional supplement TID Pt current nutrition is Low NA, Ensure compact BID in place. Nutrition recommendation: Continue with current plan of care. Last recorded weight is 118.5 kg - shows significant weight loss, unsure of accuracy. Noted on lasix Bowel Motility: +BM 07/11 Labs Reviewed: Hgb:10.8, HCT:33.5, Alb:2.1, NA:135, GFR:40, Cr:1.3 Meds Noted:lasix, kcl, zofran Skin: New area of shearing to coccyx Additional Notes: pt asleep during assessment. Nursing reports minimal intake of meals, is having to feed patient and encourage intake. Ensure compact in place, being used for meds and offered first as beverage. Agree with orders. Continue to encourage intake as much as possible. monitor intake of nutritional supplement and meals (when diet advances and medcially advised), wt, appetite and labs
[2022-07-12] MEDS: LIDOCAINE HCL 2% VISC SOLN 15 ML UDC PO (14:20)
[2022-07-12] MEDS: DOXYCYCLINE HYCLATE 100 MG TABLET PO ×2 (14:20→20:23)
[2022-07-12] MEDS: ATORVASTATIN 40 MG TABLET PO (20:23)
[2022-07-12] MEDS: MICONAZOLE NITRATE 2% VAGINAL CREAM 45 GM TUBE 1 APPFUL VAGINAL (20:24)
[2022-07-12] MEDS: RANOLAZINE 500 MG TAB.ER.12H 1000 MG PO (20:24)
[2022-07-12] MEDS: ALPRAZolam (*CRX) 0.5 MG TABLET PO (20:24)
[2022-07-12 20:27] VITALS: PULSE 90
[2022-07-12] MEDS: MAG HYDROX/AL HYDROX/SIMETH 30 ML UDC PO (20:31)
[2022-07-12 20:41] VITALS: BP 98/69; PULSE 106; RESP 16; TEMP 36.3; O2SAT 98
--- NOTE | 2022-07-12 21:52 | PC.NURSE ---
housekeeping room attendant informed about surgeries request for hover mat and x2 US placed IV's.
[2022-07-13] VITALS (15 sets, daily range): BP systolic 88–126; BP diastolic 49–92; PULSE 98–125; RESP 12–20; TEMP 36.4–36.6; O2SAT 97–100
--- NOTE | 2022-07-13 05:27 | PC.NURSE ---
lab reported unable to get am labs
[2022-07-13] MEDS: LEVOTHYROXINE SODIUM 75 MCG TABLET PO (05:30)
[2022-07-13] MEDS: SUCRALFATE 1 GM TABLET PO ×2 (05:30→19:00)
--- NOTE | 2022-07-13 06:05 | PC.NURSE ---
messaged left for Rosanne Count per cath laboratory technician, for CHELA, requiring x2 IV's for procedure today.
[2022-07-13 08:01] LABS: Alanine Aminotransferase 24 U/L (6-35); Albumin Level 2.3 g/dL (3.5-5.1); Alkaline Phosphatase 125 U/L (38-126); Anion Gap 7 mmol/L (8-16); Aspartate Amino Transferase 49 U/L (14-36); Bilirubin,Total 0.4 mg/dL (0.2-1.3); Blood Urea Nitrogen 18 mg/dL (7-17); Calcium 9.2 mg/dL (8.4-10.2); Carbon Dioxide 19 mmol/L (22-30); Chloride 111 mmol/L (98-107); Estimated CRCL calculation 47 ml/min; Estimated Glomerular Filt Rate 44; Glucose 114 mg/dL (65-110); Potassium 4.2 mmol/L (3.4-5.0); Sodium 137 mmol/L (137-145)
--- NOTE | 2022-07-13 08:12 | PM.IMPN ---
Progress Note: A&P Assessment and Plan (1) Parotiditis: Code(s): K11.20 - Sialoadenitis, unspecified Status: Acute Assessment and Plan: Improving, continue antibiotics, appreciate ENT consult, compresses and milking of parotid gland. Would culture growing methicillin resistant staphylococcus sensitive to vancomycin and tetracyclines. 07/07 - Patient continues to improved on vancomycin and cefepime. 07/09: Discontinue cefepime. Continue vancomycin while hospitalized. Will plan for a total duration of 7-10 days from 07/06/22. 07/11: WCX MRSA sensitive to only vancomycin & bactrim. Will continue vancomycin for now. 07/12: Will change to oral doxycycline to continue treatment for a total of 10 days 07/13: Leukocytosis normal. Will complete treatment with doxycycline on 07/14/22. (2) Sepsis: Code(s): A41.9 - Sepsis, unspecified organism Status: Acute Assessment and Plan: Patient has recent history of suspect endocarditis and treatment for MRSA two days prior to presentation to the emergency department. 1/2 cultures from 07/04 with staphylococcus capitis but repeat cultures for 07/05/22 prior to increasing dose of cefepime finalized with no growth. Stap capitis is likely a contaminant. Resolved. (3) Metabolic encephalopathy: Code(s): G93.41 - Metabolic encephalopathy Status: Acute Assessment and Plan: Resolved. (4) Clostridial infection: Status: Acute Assessment and Plan: C. diff positive today. Already on probiotic. -Fidaxomicin 200 mg BID x 10 days to end on 07/17/2022 (5) Positive blood culture: Code(s): R78.81 - Bacteremia Status: Acute Assessment and Plan: 1/2 set of blood cultures from 07/04/22 growing staphylococcus capitis. Patient has recent history of suspect endocarditis and treatment for MRSA two days prior to presentation to the emergency department. Repeat blood cultures from 07/05/22 have no growth to date. This was likely a contaminant. Resolved. (6) Elevated troponin: Code(s): R77.8 - Other specified abnormalities of plasma proteins Status: Acute Assessment and Plan: Echo with EF 15-20%, which cardiology believes is likely stress cardiomyopathy and not ACS but does recommend a heart catheterization in the future. Patient is without chest pain. -Planned for CHELA and heart cath today -Appreciate Cardiology recommendations (7) Type 2 diabetes mellitus: Code(s): E11.9 - Type 2 diabetes mellitus without complications Status: Acute Assessment and Plan: A1c is 4.9, no need for Accu-Cheks or insulin (8) Atrial fibrillation: Code(s): I48.91 - Unspecified atrial fibrillation Status: Acute Assessment and Plan: Having some tachycardia. Cardiology has increased metoprolol to 50 mg BID and discontinued sotalol. Home apixaban held starting 07/07/22 due to concern for bleeding and need for CHELA. -Continue enoxaparin (9) Bimalleolar fracture of right ankle: Qualifiers: Encounter type: subsequent encounter Fracture type: closed Fracture healing: with routine healing Qualified Code(s): S82.841D - Displaced bimalleolar fracture of right lower leg, subsequent encounter for closed fracture with routine healing Code(s): S82.841A - Displaced bimalleolar fracture of right lower leg, initial encounter for closed fracture Status: Acute Assessment and Plan: Appreciate orthopedic consultation, x-ray show good healing, cast can be removed and patient can be placed in a fracture boot for weight-bearing as tolerated with PT (10) Elevated serum creatinine: Code(s): R79.89 - Other specified abnormal findings of blood chemistry Status: Acute Assessment and Plan: Baseline creatinine was around 0.8 in May 2022. Renal ultrasound unable to visualize left kidney due to body habitus and notes normal right ki
[2022-07-13 08:21] LABS: Basophils Absolute Auto 0.1 K/mm3 (0.0-0.1); Basophils Percent Auto 1.1 % (0.2-1.2); Eosinophils Absolute Auto 0.2 K/mm3 (0-0.3); Eosinophils Percent Auto 2.7 % (0-4.4); Hemoglobin 10.3 g/dL (12.0-15.0); Immature Granulocyte Percent A 4.6 % (0-0.5); Lymphocytes Absolute Auto 3.02 K/mm3 (0.9-3.2); Lymphocytes Percent Auto 34.5 % (18.3-44.2); Mean Corpuscular HGB Conc 32.2 g/dl (32-36); Mean Corpuscular Hemoglobin 34.7 pg (26-34); Mean Corpuscular Volume 107.7 fl (80-100); Mean Platelet Volume 12.5 fl (7.4-10.4); Monocytes Absolute Auto 0.8 K/mm3 (0.1-0.6); Monocytes Percent Auto 9.3 % (2.6-8.5); Neutrophils Absolute Auto 4.2 K/mm3 (1.3-6.7); Neutrophils Percent Auto 47.8 % (45.5-73.1); Nucleated Red Blood Cells Absolute Auto 0.1 K/mm3 (0.0-0.012); Nucleated Red Blood Cells Perc 1.1 % (0.0-0.2); Platelet Count Result 311 k/mm3 (150-375); Red Blood Count 2.97 M/mm3 (4.2-5.4); Red Cell Distribution Width 16.3 % (11.5-14.5); White Blood Count 8.8 K/mm3 (4.5-10.0)
[2022-07-13] MEDS: MUPIROCIN 2% OINT 22 GM TUBE 1 APPLIC EACH NARE ×2 (08:22→20:51)
--- NOTE | 2022-07-13 09:19 | SUR.OPER ---
Anesthesia delayed due to emergent procedure. No change in pt condition. Dr. Merlos aware, continue to monitor.
--- NOTE | 2022-07-13 09:35 | WPDANESEPPF ---
Anes - Initial Pre Proc Eval Procedure: Operation Date: 07/09/22 14:15 Proposed Procedures p Esophagogastroduodenoscopy - Dieudonne Cunningham MD Operation Date: 07/13/22 09:00 Proposed Procedures p Trans Esophageal Echo - Nicko Merlos MD Operation Date: 07/13/22 10:30 Proposed Procedures p Left Heart Cath - Nicko Merlos MD Date/Time: 07/13/22 09:35 Surgeon: Duy Berry MD Pre Op Diagnosis: sepsis/uti Patient Data Age: 72 Gender: F Height: 1.63 m Weight: 118.8 kg Last Vital Signs Temp 97.9 F 07/13/22 04:27 Pulse 100 07/13/22 04:27 Resp 18 07/13/22 04:27 BP 114/61 07/13/22 04:27 Pulse Ox 100 07/13/22 04:27 O2 Del Method Room Air 07/12/22 20:00 Allergies Allergy/AdvReac Type Severity Reaction Status Date / Time Penicillins Allergy Intermediate Swelling Verified 07/09/22 12:48 Home Medications Medication Instructions Recorded Confirmed Type Saccharomyces boulardii 250 mg 250 mg PO BID 07/05/22 07/05/22 History capsule alprazolam 0.5 mg tablet 0.5 mg PO HS 07/05/22 07/05/22 History aluminum-mag hydroxide-simethicone 30 ml PO Q6H PRN Heartburn 07/05/22 07/05/22 History 225 mg-200 mg-25 mg/5 mL oral susp apixaban 5 mg tablet (Eliquis) 5 mg PO BID 07/05/22 07/05/22 History atorvastatin 40 mg tablet 40 mg PO HS 07/05/22 07/05/22 History bisacodyl 10 mg rectal suppository 10 mg RECTAL DAILY PRN Constipation 07/05/22 07/05/22 History bupropion HCl 150 mg tablet,12 hr 150 mg PO DAILY 07/05/22 07/05/22 History sustained-release calcium 600 mg capsule 1,200 mg PO DAILY 07/05/22 07/05/22 History cholecalciferol (vitamin D3) 25 25 mcg PO DAILY 07/05/22 07/05/22 History mcg (1,000 unit) tablet cyanocobalamin (vitamin B-12) 1,000 mcg PO DAILY 07/05/22 07/05/22 History 1,000 mcg tablet diltiazem HCl 300 mg 300 mg PO DAILY 07/05/22 07/05/22 History capsule,extended release 24 hr esomeprazole magnesium 20 mg 20 mg PO DAILY 07/05/22 07/05/22 History capsule,delayed release ferrous sulfate 325 mg (65 mg 325 mg PO BID 07/05/22 07/05/22 History iron) tablet fluoxetine 20 mg capsule 20 mg PO DAILY 07/05/22 07/05/22 History folic acid 1 mg tablet 1 mg PO DAILY 07/05/22 07/05/22 History furosemide 80 mg tablet 80 mg PO DAILY 07/05/22 07/05/22 History gabapentin 100 mg capsule 100 mg PO BID 07/05/22 07/05/22 History hydrocodone 5 mg-acetaminophen 325 5 - 325 tablet PO BID 07/05/22 07/05/22 History mg tablet levothyroxine 75 mcg tablet 75 mcg PO DAILY 07/05/22 07/05/22 History losartan 25 mg tablet 25 mg PO DAILY 07/05/22 07/05/22 History magnesium citrate 296 ml PO DAILY PRN Constipation 07/05/22 07/05/22 History magnesium hydroxide 400 mg/5 mL 30 ml PO HS PRN Constipation 07/05/22 07/05/22 History oral suspension (Milk of Magnesia) magnesium oxide 400 mg PO DAILY 07/05/22 07/05/22 History mupirocin calcium 2 % nasal 1 ea intranasal QSHIFT 07/05/22 07/05/22 History ointment potassium chloride 20 mEq 40 meq PO TID 07/05/22 07/05/22 History tablet,extended release(part/cryst) ranolazine 1,000 mg 1,000 mg PO HS 07/05/22 07/05/22 History tablet,extended release,12 hr sodium chloride 0.9 % (flush) 10 ml IV Q12H 07/05/22 07/05/22 History (Normal Saline Flush 0.9 % injection syringe) sodium phosphates 19 gram-7 118 ml RECTAL ONCE PRN Constipation 07/05/22 07/05/22 History gram/118 mL enema (Fleet Enema) sotalol 80 mg tablet 80 mg PO BID 07/05/22 07/05/22 History sucralfate 1 gram tablet 1 g PO TID 07/05/22 07/05/22 History topiramate 50 mg tablet 50 mg PO BID 07/05/22 07/05/22 History trazodone 100 mg tablet 100 mg PO HS 07/05/22 07/05/22 History vancomycin 1 gram/200 mL in 2,250 mg IV Q48H 07/05/22 07/05/22 History dextrose 5 % intravenous piggyback Laboratory Tests 07/12/22 07/13/22 07/13/22 10:16 07:32 07:32 WBC 8.8 K/mm3 K/mm3 (4.5-10.0) RBC 2.97 M/mm3 L M/mm3 (4.2-5.4) Hgb 10.3 g/dL L g/dL (12
--- NOTE | 2022-07-13 10:49 | SUR.PHASEII ---
Pt resting in bed, awake and alert, denies pain or discomfort, VSS, BP to preprocedure level. Continue to monitor, prepare for transport to [facility]
--- NOTE | 2022-07-13 11:16 | ECG_ITS ---
Measurements Intervals [place] Rate: 124 P: 88 OH: 224 QRS: -82 QRSD: 202 T: 95 QT: 397 QTc: 571 Interpretive Statements ELECTRONIC VENTRICULAR PACEMAKER UNDERLYING ATRIAL TACHYCARDIA/FLUTTER BASELINE ARTIFACT- I, III, AVR, AVL, V6 NO FURTHER INTERPRETATION IS POSSIBLE ABNORMAL ECG COMPARED TO ECG 07/07/2022 05:45:07 UNDERLYING ATRIAL TACHYCARDIA/FLUTTER NOW PRESENT Electronically Signed On 07-13-2022 11:54:30 CDT by Roberto Maddox D.O.
--- NOTE | 2022-07-13 13:31 | PM.PNCARD ---
Progress Note: A&P Assessment and Plan (1) Cardiomyopathy: Code(s): I42.9 - Cardiomyopathy, unspecified Status: Acute (2) Heart failure with reduced ejection fraction: Code(s): I50.20 - Unspecified systolic (congestive) heart failure Status: Acute (3) Atrial fibrillation: Code(s): I48.91 - Unspecified atrial fibrillation Status: Acute (4) Type 2 diabetes mellitus: Code(s): E11.9 - Type 2 diabetes mellitus without complications Status: Acute (5) Parotiditis: Code(s): K11.20 - Sialoadenitis, unspecified Status: Acute (6) Hypertension: Code(s): I10 - Essential (primary) hypertension Status: Acute Plan CHELA today shows no evidence of vegetations. Cath showed NOCAD, LVEDP 22mmHg. Cardiomyopathy is non-ischemic, likely stress cardiomyopathy. Ranolazine discontinued. Continue with heart failure GDMT with Entresto and beta-shirin. Continue with current oral Lasix dose. Given her soft blood pressures, she likely would not tolerate addition of Aldactone at this time. If BP increases, then would add Aldactone. Patient in atrial fibrillation today with HR in the 120s, will increase Metoprolol dose to 100mg BID. Give 50mg now. Metoprolol tartrate will need to be switched to Succinate prior to discharge given reduced LVEF. Resume Eliquis tomorrow. Subjective Date/time seen: 07/13/22 13:31 Interval history: CHELA and cardiac cath scheduled for today. Patient denies chest pain, no shortness of breath. Patient is full code for cardiac procedures. Review of Systems Review of Systems: All systems reviewed & are unremarkable except as noted in HPI and below (subjective) Exam Const: General: comfortable and no acute distress Other: Morbidly obese Neck: Neck: no JVD Resp: Effort & Inspection: normal respiratory effort Auscultation: diminished lung sounds Cardio: Rate: tachycardic Rhythm: abnormal rhythm irregularly irregular Neuro: Other: Slow speech Psych: Other: Flat affect Objective Data Vital Signs Vital Signs: Vital Signs - 24 hr 07/12/22 20:27 07/12/22 20:41 07/12/22 20:00 Temperature 36.3 C L Pulse Rate 90 106 H Respiratory Rate 16 Blood Pressure 98/69 L Pulse Oximetry 98 Oxygen Delivery Room Air 07/13/22 04:27 07/13/22 10:30 07/13/22 10:53 Temperature 36.6 C Pulse Rate 100 122 H 125 H Respiratory Rate 18 15 20 Blood Pressure 114/61 107/52 L 98/49 L Pulse Oximetry 100 100 100 Oxygen Delivery Room Air Room Air 07/13/22 11:00 07/13/22 10:45 07/13/22 13:15 Temperature Pulse Rate 122 H 124 H 115 H Respiratory Rate 16 15 12 Blood Pressure 88/64 L 93/64 L 125/92 H Pulse Oximetry 99 98 99 Oxygen Delivery Room Air Room Air Room Air 07/13/22 13:00 Temperature Pulse Rate 118 H Respiratory Rate 12 Blood Pressure 126/86 Pulse Oximetry 97 Oxygen Delivery Room Air Intake/Output Intake/Output: Intake & Output 07/10/22 07/11/22 07/12/22 07/13/22 23:59 23:59 23:59 23:59 Intake Total 420 1110 1360 75 Output Total 615 543 6999 250 Balance -430 260 -140 -175 Meds/Results Medications: Active Medications Generic Name Dose Route Start Last Admin Trade Name Freq PRN Reason Stop Dose Admin Hydrocodone Bitart/Acetaminophen 1 tab 07/06/22 09:00 07/13/22 13:01 Hydrocodone/Acetaminophen (*Crx) 5-325 Mg Tablet PO Not Given BID MAY Al Hydrox/Mg Hydrox/Simethicone 30 ml 07/05/22 17:36 07/12/22 20:31 Mag Hydrox/Al Hydrox/Simeth 30 Ml Udc PO 30 ml Q6H PRN Administration Heartburn Alprazolam 0.5 mg 07/05/22 21:00 07/12/22 20:24 Alprazolam (*Crx) 0.5 Mg Tablet PO 0.5 mg HS MAY Administration Atorvastatin Calcium 40 mg 07/05/22 21:00 07/12/22 20:23 Atorvastatin 40 Mg Tablet PO 40 mg HS MAY Administration Bisacodyl 10 mg 07/05/22 17:36 Bisacodyl 10 Mg Suppository RECTAL DAILY PRN Constipation Bupropion HCl 150 mg 07/06/22 09
[2022-07-13] MEDS: METOPROLOL TARTRATE 50 MG TAB PO (14:13)
[2022-07-13] MEDS: TOLNAFTATE 1% POWDER 45 GM BTL 1 APPLIC TOPICAL ×2 (16:44→20:51)
[2022-07-13] MEDS: TOPIRAMATE 25 MG TABLET 50 MG PO (19:00)
[2022-07-13] MEDS: SACCHAROMYCES BOULARDII 250 MG CAPSULE PO (19:01)
[2022-07-13] MEDS: FERROUS SULFATE 324 MG TABLET PO (19:01)
[2022-07-13] MEDS: METOPROLOL TARTRATE 50 MG TAB 100 MG PO (20:49)
[2022-07-13] MEDS: SACUBITRIL/VALSARTAN 24-26 MG TABLET 1 TAB PO (20:49)
[2022-07-13] MEDS: DOXYCYCLINE HYCLATE 100 MG TABLET PO (20:49)
[2022-07-13] MEDS: ATORVASTATIN 40 MG TABLET PO (20:50)
[2022-07-13] MEDS: FIDAXOMICIN 200 MG TABLET PO (20:50)
[2022-07-13] MEDS: ALPRAZolam (*CRX) 0.5 MG TABLET PO (20:51)
[2022-07-13] MEDS: MICONAZOLE NITRATE 2% VAGINAL CREAM 45 GM TUBE 1 APPFUL VAGINAL (20:51)
[2022-07-13 21:48] LABS: Appearance Urine Cloudy (Clear); Bilirubin Urine 1+ (Negative); Blood Urine 2+ (Negative); Color Urine Yellow (Yellow); Glucose Urine UA Negative (Negative); Ketones Urine Negative (Negative); Leukocyte Esterase Ur 1+ LEU/UL (NEGATIVE); Nitrate Urine Negative (Negative); Protein Urine 1+ mg/dL (Negative); Specific Grav Ur <= 1.005 (1.001-1.035); Urobilinogen Urine 0.2 mg/dL (<2.0); pH Urine 5.5 (5.0-9.0)
[2022-07-13 21:55] LABS: Bacteria Urine Trace /hpf; Budding Yeast Urine Present /hpf; Mucus Urine Rare /lpf; RBC Urine 21-50 /hpf (0-2); Squamous Epithelial Cell Urine Rare /hpf (Few); WBC Urine 51-75 /hpf (0-3)
[2022-07-13 21:57] LABS: Add Urine Microscopic? YES
[2022-07-14] VITALS (8 sets, daily range): BP systolic 107–159; BP diastolic 64–79; PULSE 78–106; RESP 14–18; TEMP 36.4–37.1; O2SAT 98–100
[2022-07-14 05:15] LABS: Basophils Absolute Auto 0.1 K/mm3 (0.0-0.1); Basophils Percent Auto 0.9 % (0.2-1.2); Eosinophils Absolute Auto 0.3 K/mm3 (0-0.3); Eosinophils Percent Auto 2.7 % (0-4.4); Hematocrit 31.6 % (37.0-47.0); Hemoglobin 10.2 g/dL (12.0-15.0); Immature Granulocyte Absolute 0.38 K/mm3 (0.00-0.031); Immature Granulocyte Percent A 4.1 % (0-0.5); Lymphocytes Absolute Auto 2.54 K/mm3 (0.9-3.2); Lymphocytes Percent Auto 27.3 % (18.3-44.2); Mean Corpuscular HGB Conc 32.3 g/dl (32-36); Mean Corpuscular Hemoglobin 35.3 pg (26-34); Mean Corpuscular Volume 109.3 fl (80-100); Mean Platelet Volume 11.8 fl (7.4-10.4); Monocytes Absolute Auto 0.8 K/mm3 (0.1-0.6); Monocytes Percent Auto 8.4 % (2.6-8.5); Neutrophils Absolute Auto 5.3 K/mm3 (1.3-6.7); Neutrophils Percent Auto 56.6 % (45.5-73.1); Nucleated Red Blood Cells Absolute Auto 0.1 K/mm3 (0.0-0.012); Nucleated Red Blood Cells Perc 0.5 % (0.0-0.2); Platelet Count Result 297 k/mm3 (150-375); Red Blood Count 2.89 M/mm3 (4.2-5.4); Red Cell Distribution Width 16.6 % (11.5-14.5); White Blood Count 9.3 K/mm3 (4.5-10.0)
[2022-07-14 05:29] LABS: Alanine Aminotransferase 25 U/L (6-35); Albumin Level 2.2 g/dL (3.5-5.1); Alkaline Phosphatase 113 U/L (38-126); Anion Gap 6 mmol/L (8-16); Aspartate Amino Transferase 49 U/L (14-36); Bilirubin,Total 0.5 mg/dL (0.2-1.3); Blood Urea Nitrogen 17 mg/dL (7-17); Calcium 9.1 mg/dL (8.4-10.2); Carbon Dioxide 18 mmol/L (22-30); Chloride 112 mmol/L (98-107); Estimated CRCL calculation 47 ml/min; Estimated Glomerular Filt Rate 44; Glucose 102 mg/dL (65-110); Potassium 4.2 mmol/L (3.4-5.0); Sodium 136 mmol/L (137-145)
[2022-07-14] MEDS: SUCRALFATE 1 GM TABLET PO ×3 (05:55→16:24)
[2022-07-14] MEDS: LEVOTHYROXINE SODIUM 75 MCG TABLET PO (05:55)
--- NOTE | 2022-07-14 08:53 | WPDCARDPROC ---
Cardiac Cath Procedure Note Date of procedure:: 07/13/22 Performing physician:: CATHETERIZATION LABORATORY REPORT Procedure Date: 07/13/2022 Auto Body Man: Nicko Melros M.D., [facility]? Referring Physician: Nicko Merlos M.D. ? Anesthesia: Versed and Fentanyl were ordered and given in my presence at 11:34, procedure ended at 12:20. Supervision of nurse monitored moderate sedation with Versed and Fentanyl was provided for 46 minutes. Total of 2mg of Versed and 75mcg of Fentanyl were administered by lab associate RN. Pre-op Diagnosis: New diagnosis of cardiomyopathy / heart failure with reduced ejection fraction Post-op Diagnosis: Non-obstructive coronary arteries Left ventricular end-diastolic pressure of 22mmHg Non-ischemic cardiomyopathy Procedure(s): Left heart catheterization with coronary angiography Access Site: Right radial artery Brief History and Clinical Indications: Patient is a 72-year-old female with a history of atrial fibrillation, bilateral parotitis, morbid obesity who is referred for coronary angiography for ischemic evaluation for new diagnosis of heart failure with reduced ejection fraction. All risks, benefits and alternatives to left heart catheterization with or without percutaneous coronary intervention was discussed at length with the patient. Risk of complications including but not limited to bleeding, infection, arrhythmia, stroke, worsening kidney function, blood loss, groin hematoma, limb loss, emergency coronary artery bypass grafting, and even were discussed with the patient and all questions were answered. The patient understood and wished to proceed. Time out called, patient name, date of , medical record number, allergies, procedure performed, identify Auto Body Man, patient and staff member concurred with accurate data, procedure carried on. Findings: LEFT HEART CATHETERIZATION FINDINGS: 1. Left main: The left main coronary artery is widely patent without any significant obstructive disease. 2. Left anterior descending: The LAD and the diagonal branches have mild luminal irregularities without any significant obstructive angiographic disease. 3. Left circumflex: The left circumflex artery and the main marginal branches have mild luminal irregularities without any significant obstructive angiographic disease. The left circumflex artery is a co-dominant vessel. 4. Right coronary artery: The RCA has mild luminal irregularities without any significant obstructive angiographic disease. The RCA is a co-dominant vessel. 5. Left ventricle: A. End-diastolic pressure 22mmHg. B. LV gram deferred. C. No significant gradient across aortic valve on catheter pullback. Description of Procedure: Informed consent signed and placed in the chart. Patient transferred to lab associate room. Prepped and draped in usual sterile fashion. 2% lidocaine injected subcutaneously in right wrist area. 22-gauge venipuncture catheter used to access the right radial artery with the Seldinger technique. 6-FR slender sheath placed in right radial artery. Nitroglycerine and Cardene was given intraarterial through the sheath. Glidewire advanced under fluoroscopy 5F Tig 4 diagnostic catheter engaged Left Main Coronary Artery. 5F Tig 4 diagnostic catheter engaged Right Coronary Artery. Due to deep engagement of the RCA with the Tig, remaining angios of the RCA were obtained with 5F JR 4 Multiple orthogonal angiogram obtained and reviewed 5F Tig 4 diagnostic catheter crossed aortic valve to obtain LVEDP, LV angiogram deferred. Hemostasis was achieved by application of TR band. ? Assessment: Non-obstructive coronary arteries Left ventricular end-diastolic pressure of 22mmHg Non-ischemic cardiomyopathy Post Operative Condition: Stable No significant blood loss Disposition: Floor Plan: Continue aggressive medical therapy and risk factor modification. Continue with GDMT for heart failure. ? Nicko Merlos M.D. Int
--- NOTE | 2022-07-14 08:56 | P.PNAN_ITS ---
Anes - Prog Note Post-Op Date/Time: 07/14/22 08:56 Cardiovascular status: normal Respiratory status: normal Airway patency: baseline Mental status: baseline Post-Op hydration status: normal Vital Signs: Last Vital Signs Temp 97.9 F 07/14/22 04:00 Pulse 100 07/14/22 04:00 Resp 18 07/14/22 04:00 BP 118/72 07/14/22 04:00 Pulse Ox 98 07/14/22 04:00 O2 Del Method Room Air 07/13/22 14:33 Pain Score (VAS): 0/10 I/O: Intake & Output 07/13/22 07/14/22 07/14/22 23:59 07:59 15:59 Intake Total 240 Output Total 500 Balance 240 -500 Laboratory Tests 07/14/22 05:06 07/14/22 05:06 07/13/22 07/14/22 07/14/22 21:22 05:06 05:06 WBC 9.3 RBC 2.89 L Hgb 10.2 L Hct 31.6 L MCV 109.3 H MCH 35.3 H MCHC 32.3 RDW 16.6 H Plt Count 297 MPV 11.8 H Immature Gran % (Auto) 4.1 H Neut % (Auto) 56.6 Lymph % (Auto) 27.3 [place] % (Auto) 8.4 Eos % (Auto) 2.7 Baso % (Auto) 0.9 Lymph # (Auto) 2.54 [place] # (Auto) 0.8 H Eos # (Auto) 0.3 Baso # (Auto) 0.1 Abs Immat Gran (auto) 0.38 H Absolute Neuts (auto) 5.3 Absolute Nucleated RBC 0.1 H Nucleated RBC % 0.5 H Sodium 136 L Potassium 4.2 Chloride 112 H Carbon Dioxide 18 L Anion Gap 6 L BUN 17 Creatinine 1.20 H Estim Creat Clear Calc 47 Estimated GFR 44 L Glucose 102 Calcium 9.1 Total Bilirubin 0.5 AST 49 H ALT 25 Alkaline Phosphatase 113 Total Protein 5.0 L Albumin 2.2 L Urine Color Yellow Urine Appearance Cloudy H Urine pH 5.5 Ur Specific [place] <= 1.005 Urine Protein 1+ H Urine Glucose (UA) Negative Urine Ketones Negative Ur Blood (Man) 2+ H Urine Nitrate Negative Urine Bilirubin 1+ H Urine Urobilinogen 0.2 Ur Leukocyte Esterase 1+ H Urine RBC 21-50 H Urine WBC 51-75 H Ur Squamous Epith Cells Rare Urine Bacteria Trace Urine Mucus Rare Urine Yeast (Budding) Present H Post-procedural complaints: none Patient Feedback: Patient satisfied with anesthetic care.
[2022-07-14] MEDS: PANTOPRAZOLE 40 MG TABLET PO (09:12)
[2022-07-14] MEDS: SACUBITRIL/VALSARTAN 24-26 MG TABLET 1 TAB PO ×2 (09:12→21:05)
[2022-07-14] MEDS: APIXABAN 5 MG TABLET PO ×2 (09:12→21:05)
[2022-07-14] MEDS: SACCHAROMYCES BOULARDII 250 MG CAPSULE PO ×2 (09:13→16:25)
[2022-07-14] MEDS: METOPROLOL TARTRATE 50 MG TAB 100 MG PO ×2 (09:13→21:05)
[2022-07-14] MEDS: FIDAXOMICIN 200 MG TABLET PO ×2 (09:13→21:04)
[2022-07-14] MEDS: TOPIRAMATE 25 MG TABLET 50 MG PO ×2 (09:13→16:24)
[2022-07-14] MEDS: DOXYCYCLINE HYCLATE 100 MG TABLET PO ×2 (09:14→21:05)
[2022-07-14] MEDS: CHOLECALCIFEROL 1,000 UNITS TABLET 1000 UNITS PO (09:14)
[2022-07-14] MEDS: CYANOCOBALAMIN 1,000 MCG TABLET 1000 MCG PO (09:14)
[2022-07-14] MEDS: FOLIC ACID 1 MG TABLET PO (09:15)
[2022-07-14] MEDS: TOLNAFTATE 1% POWDER 45 GM BTL 1 APPLIC TOPICAL ×2 (09:16→21:05)
[2022-07-14] MEDS: MUPIROCIN 2% OINT 22 GM TUBE 1 APPLIC EACH NARE ×2 (09:17→21:06)
--- NOTE | 2022-07-14 11:40 | PM.PNCARD ---
Progress Note: A&P Assessment and Plan (1) Cardiomyopathy: Code(s): I42.9 - Cardiomyopathy, unspecified Status: Acute (2) Clostridial infection: Status: Acute (3) Heart failure with reduced ejection fraction: Code(s): I50.20 - Unspecified systolic (congestive) heart failure Status: Acute (4) Atrial fibrillation: Code(s): I48.91 - Unspecified atrial fibrillation Status: Acute Plan CHELA showed no evidence of vegetations. Cath showed NOCAD, LVEDP 22mmHg. Cardiomyopathy is non-ischemic, likely stress cardiomyopathy. Ranolazine discontinued. Continue with heart failure GDMT with Entresto and beta-shirin. Continue with current oral Lasix dose. For paroxysmal atrial fibrillation, continue Eliquis for CVA PPX. Improvement in heart rate control with increased dose of Metoprolol (now at 100mg BID). Metoprolol tartrate will need to be switched to Succinate prior to discharge given reduced LVEF. Will continue to monitor heart rate control. Subjective Date/time seen: 07/14/22 11:40 Interval history: No chest pain or shortness of breath. No bleeding issues from right radial artery access site. HR is better this morning. Review of Systems Review of Systems: All systems reviewed & are unremarkable except as noted in HPI and below (subjective) Exam Const: General: no acute distress Resp: Effort & Inspection: normal respiratory effort Other: Decreased breath sounds in bases Cardio: Rhythm: abnormal rhythm irregularly irregular Heart sounds: no murmurs Extrem: General: no edema Psych: Other: Flat affect Objective Data Vital Signs Vital Signs: Vital Signs - 24 hr 07/13/22 13:15 07/13/22 13:00 07/13/22 13:45 Temperature Pulse Rate 115 H 118 H 123 H Respiratory Rate 12 12 20 Blood Pressure 125/92 H 126/86 123/66 Pulse Oximetry 99 97 100 Oxygen Delivery Room Air Room Air Room Air 07/13/22 14:01 07/13/22 14:13 07/13/22 14:33 Temperature Pulse Rate 111 H 100 117 H Respiratory Rate 18 16 Blood Pressure 114/82 114/76 Pulse Oximetry 99 98 Oxygen Delivery Room Air Room Air 07/13/22 18:00 07/13/22 20:00 07/13/22 20:49 Temperature 36.6 C 36.4 C Pulse Rate 98 116 H 112 H Respiratory Rate 20 18 Blood Pressure 112/75 115/70 Pulse Oximetry 100 98 Oxygen Delivery 07/13/22 21:00 07/14/22 00:00 07/14/22 04:00 Temperature 36.6 C 37.1 C 36.6 C Pulse Rate 110 H 78 100 Respiratory Rate 18 18 18 Blood Pressure 115/70 159/70 H 118/72 Pulse Oximetry 98 100 98 Oxygen Delivery 07/14/22 09:13 07/14/22 09:34 Temperature 36.7 C Pulse Rate 106 H 106 H Respiratory Rate 18 Blood Pressure 109/64 Pulse Oximetry 100 Oxygen Delivery Intake/Output Intake/Output: Intake & Output 07/11/22 07/12/22 07/13/22 07/14/22 23:59 23:59 23:59 23:59 Intake Total 1110 1360 315 Output Total 850 1500 250 500 Balance 260 -140 65 -500 Meds/Results Medications: Active Medications Generic Name Dose Route Start Last Admin Trade Name Freq PRN Reason Stop Dose Admin Hydrocodone Bitart/Acetaminophen 1 tab 07/06/22 09:00 07/14/22 11:27 Hydrocodone/Acetaminophen (*Crx) 5-325 Mg Tablet PO Not Given BID MAY Al Hydrox/Mg Hydrox/Simethicone 30 ml 07/05/22 17:36 07/12/22 20:31 Mag Hydrox/Al Hydrox/Simeth 30 Ml Udc PO 30 ml Q6H PRN Administration Heartburn Alprazolam 0.5 mg 07/05/22 21:00 07/13/22 20:51 Alprazolam (*Crx) 0.5 Mg Tablet PO 0.5 mg HS MAY Administration Apixaban 5 mg 07/14/22 09:00 07/14/22 09:12 Apixaban 5 Mg Tablet PO 5 mg Q12HR MAY Administration Atorvastatin Calcium 40 mg 07/05/22 21:00 07/13/22 20:50 Atorvastatin 40 Mg Tablet PO 40 mg HS MAY Administration Bisacodyl 10 mg 07/05/22 17:36 Bisacodyl 10 Mg Suppository RECTAL DAILY PRN Constipation Bupropion HCl 150 mg 07/06/22 09:00 07/10/22 08:53 Bupropion Hcl Sr (12 Hr) 150 Mg Tab PO 150 mg DAILY
[2022-07-14] MEDS: FERROUS SULFATE 324 MG TABLET PO ×2 (12:03→16:24)
[2022-07-14] MEDS: MAGNESIUM OXIDE 400 MG TABLET PO (12:04)
[2022-07-14] MEDS: CALCIUM CARBONATE (OSCAL) 500 MG TABLET 1000 MG PO (12:04)
--- NOTE | 2022-07-14 14:13 | WPDTEECHO ---
[facility] TransEsophageal Echocardiogram Date of procedure: 07/13/22 Procedure Type: Date of Procedure: 07/13/2022 Brief History Of Present Illness: Patient is a pleasant 72-year-old female with a history of atrial fibrillation, heart failure with reduced ejection fraction, morbid obesity, recent hospitalization for possible endocarditis who is referred for transesophageal echocardiogram for further evaluation for endocarditis.. Procedure In Detail: After verbal and written informed consent was obtained, the patient risks, benefits, and alternatives explained in detail. The patient agreed to proceed with the plan of care as outlined above.?The patient was evaluated at bedside in the [facility] procedure room.?The posterior oropharynx, neck, and jaw angle all within normal limits on examination. Lungs were clear to auscultation. See pre-sedation note for further details. Procedure was done with Anesthesia team. The patient was then placed in the appropriate 30 to 45 degree angle supine position at a slight left lateral decubitus position.?Patient was monitored throughout the study with telemetry, oxygen saturation, end-tidal CO2 monitoring, blood pressure, heart rate, and respirations.? The posterior hypopharynx was then locally anesthetized using repeated administration of Hurricaine spray.? After local anesthetic of the posterior hypopharynx was achieved and the oral bite block placed, moderate sedation was administered.? After confirmation of adequate sedation, the transesophageal echocardiogram probe was advanced through the oral bite block into the posterior hypopharynx and into the esophagus easily and without complication.? Multiple, multiplanar echocardiographic images were obtained in multiple standard re- projections.? Pulsed wave, continuous-wave, and color-flow Doppler were utilized in conjunction with this study.? At the conclusion of the study, the transesophageal echocardiogram probe was removed easily and without complication.? The patient tolerated the procedure well without difficulty.? Patient was in atrial fibrillation with intermittent ventricular-paced rhythm throughout the study. Moderate Sedation/Anesthesia administration: Sedation provided by the Anesthesia team. FINDINGS: LEFT VENTRICLE: Left ventricular size is normal. Left ventricular systolic function is reduced, with an ejection fraction of 15-20%. RIGHT VENTRICLE:? Size and systolic function within normal limits. Pacemaker wire seen in the right ventricle. LEFT ATRIUM: Mildly enlarged. RIGHT ATRIUM: Normal size. Pacemaker wire seen in the right atrium. INTERATRIAL SEPTUM: ? Interatrial septum is anatomically normal without evidence of shunt with injection of agitated saline. MITRAL VALVE: ? Mitral valve is anatomically normal with preserved leaflet excursion and mild regurgitation. No valvular vegetation identified. AORTIC VALVE: The aortic valve is trileaflet. The right coronary cusp appears to have a calcified nodule. Trace regurgitation. No valvular vegetation identified. TRICUSPID VALVE: The tricuspid valve is grossly normal. Mild regurgitation. No valvular vegetation identified. PULMONIC VALVE: Pulmonic valve is grossly normal. Trace regurgitation. No valvular vegetation identified.? LEFT ATRIAL APPENDAGE: Anatomically normal structure with prominent pectinate muscles without thrombus or vegetation identified. PERICARDIUM: The pericardium was anatomically normal without significant pericardial effusion. ? AORTA: Transgastric views were not obtained. Mild plaque noted in the ascending aorta. Complications: None This dictation may have been done utilizing a voice recognition system.? Attempts have been made to correct errors. However, there may be uncorrected grammatical, spelling, and recognition errors present.
--- NOTE | 2022-07-14 15:35 | PM.DS ---
DS: Admitting Diagnosis Discharge Date July 15, 2022 Admitting Diagnosis Altered mental status DS: Discharge Diagnosis Discharge Diagnosis (1) Parotiditis: Code(s): K11.20 - Sialoadenitis, unspecified Status: Acute Assessment and Plan: Improving, continue antibiotics, appreciate ENT consult, compresses and milking of parotid gland. Would culture growing methicillin resistant staphylococcus sensitive to vancomycin and tetracyclines. 07/07: Patient continues to improved on vancomycin and cefepime. 07/09: Discontinue cefepime. Continue vancomycin while hospitalized. Will plan for a total duration of 7-10 days from 07/06/22. 07/11: WCX MRSA sensitive to only vancomycin & bactrim. Will continue vancomycin for now. 07/12: Will change to oral doxycycline to continue treatment for a total of 10 days 07/13: Leukocytosis normal. Will complete treatment with doxycycline on 07/14/2207/14: Doxy completed yesterday (2) Sepsis: Code(s): A41.9 - Sepsis, unspecified organism Status: Acute Assessment and Plan: Patient has recent history of suspect endocarditis and treatment for MRSA two days prior to presentation to the emergency department. 1/2 cultures from 07/04 with staphylococcus capitis but repeat cultures for 07/05/22 prior to increasing dose of cefepime finalized with no growth. Stap capitis is likely a contaminant. Resolved. (3) Metabolic encephalopathy: Code(s): G93.41 - Metabolic encephalopathy Status: Acute Assessment and Plan: Resolved. (4) Clostridial infection: Status: Acute Assessment and Plan: C. diff positive. Already on probiotic. Fidaxomicin 200 mg BID x 10 days to end on 07/17/2022 (5) Positive blood culture: Code(s): R78.81 - Bacteremia Status: Acute Assessment and Plan: 1/2 set of blood cultures from 07/04/22 growing staphylococcus capitis. Patient has recent history of suspect endocarditis and treatment for MRSA two days prior to presentation to the emergency department. Repeat blood cultures from 07/05/22 have no growth to date. This was likely a contaminant. Resolved. (6) Elevated troponin: Code(s): R77.8 - Other specified abnormalities of plasma proteins Status: Acute Assessment and Plan: Echo with EF 15-20%, which cardiology believes is likely stress cardiomyopathy and not ACS but does recommend a heart catheterization in the future. Patient is without chest pain. Gerson showed no vegetations (7) Type 2 diabetes mellitus: Code(s): E11.9 - Type 2 diabetes mellitus without complications Status: Acute Assessment and Plan: A1c is 4.9, no need for Accu-Cheks or insulin (8) Atrial fibrillation: Code(s): I48.91 - Unspecified atrial fibrillation Status: Acute Assessment and Plan: Having some tachycardia. Cardiology has increased metoprolol to 50 mg BID and discontinued sotalol. Home apixaban held starting 07/07/22 due to concern for bleeding and need for GERSON. -Continue enoxaparin (9) Bimalleolar fracture of right ankle: Qualifiers: Encounter type: subsequent encounter Fracture type: closed Fracture healing: with routine healing Qualified Code(s): S82.841D - Displaced bimalleolar fracture of right lower leg, subsequent encounter for closed fracture with routine healing Code(s): S82.841A - Displaced bimalleolar fracture of right lower leg, initial encounter for closed fracture Status: Acute Assessment and Plan: Appreciate orthopedic consultation, x-ray show good healing, cast can be removed and patient can be placed in a fracture boot for weight-bearing as tolerated with PT (10) Elevated serum creatinine: Code(s): R79.89 - Other specified abnormal findings of blood chemistry Status: Acute Assessment and Plan: Baseline creatinine was around 0.8 in May 2022. Renal ultrasoun
[2022-07-14] MEDS: HYDROcodone/acetaminophen (*CRX) 5-325 MG TABLET 1 TAB PO (16:22)
[2022-07-14] MEDS: ATORVASTATIN 40 MG TABLET PO (16:25)
--- NOTE | 2022-07-14 18:33 | PCCCNOTE ---
Phone call received at 5:16pm from security supervisor Tracy stating that they had a late discharge and a packet is needed. Packet printed, Called to Niru at [facility] and notified, she states that due to Cdiff it was her understanding that the patient would be coming tomorrow but she will call and see if there is anything they can do to accept tonight. security supervisor Yaneth notified that ambulatory care nurse is awaiting a call back from facility to see if they can accomodate tonight but a covid swab is needed. Return phone call from Niru received at [phone], She states that they do not have a bed tonight since the patient needs isolation due to Cdiff. Called to Yaneth and notified that facility can not accept tonight as they do not have an isolation bed available.
[2022-07-14] MEDS: MICONAZOLE NITRATE 2% VAGINAL CREAM 45 GM TUBE 1 APPFUL VAGINAL (21:06)
[2022-07-15] MEDS: MAG HYDROX/AL HYDROX/SIMETH 30 ML UDC PO (04:07)
[2022-07-15 04:56] VITALS: BP 118/90; PULSE 101; RESP 15; TEMP 36.7; O2SAT 100
[2022-07-15 05:24] LABS: Basophils Absolute Auto 0.1 K/mm3 (0.0-0.1); Basophils Percent Auto 1.1 % (0.2-1.2); Eosinophils Absolute Auto 0.2 K/mm3 (0-0.3); Eosinophils Percent Auto 1.9 % (0-4.4); Hematocrit 33.7 % (37.0-47.0); Hemoglobin 10.3 g/dL (12.0-15.0); Immature Granulocyte Absolute 0.19 K/mm3 (0.00-0.031); Lymphocytes Absolute Auto 2.72 K/mm3 (0.9-3.2); Lymphocytes Percent Auto 28.2 % (18.3-44.2); Mean Corpuscular HGB Conc 30.6 g/dl (32-36); Mean Corpuscular Hemoglobin 34.6 pg (26-34); Mean Corpuscular Volume 113.1 fl (80-100); Mean Platelet Volume 11.9 fl (7.4-10.4); Monocytes Absolute Auto 0.9 K/mm3 (0.1-0.6); Monocytes Percent Auto 9.4 % (2.6-8.5); Neutrophils Absolute Auto 5.6 K/mm3 (1.3-6.7); Neutrophils Percent Auto 57.4 % (45.5-73.1); Nucleated Red Blood Cells Absolute Auto 0.1 K/mm3 (0.0-0.012); Nucleated Red Blood Cells Perc 0.9 % (0.0-0.2); Platelet Count Result 300 k/mm3 (150-375); Red Blood Count 2.98 M/mm3 (4.2-5.4); Red Cell Distribution Width 16.9 % (11.5-14.5); White Blood Count 9.7 K/mm3 (4.5-10.0)
[2022-07-15] MEDS: SUCRALFATE 1 GM TABLET PO ×2 (05:33→12:07)
[2022-07-15 05:34] LABS: Alanine Aminotransferase 26 U/L (6-35); Albumin Level 2.5 g/dL (3.5-5.1); Alkaline Phosphatase 126 U/L (38-126); Anion Gap 8 mmol/L (8-16); Aspartate Amino Transferase 43 U/L (14-36); Bilirubin,Total 0.4 mg/dL (0.2-1.3); Blood Urea Nitrogen 15 mg/dL (7-17); Calcium 9.4 mg/dL (8.4-10.2); Carbon Dioxide 15 mmol/L (22-30); Chloride 114 mmol/L (98-107); Estimated CRCL calculation 50 ml/min; Estimated Glomerular Filt Rate 49; Glucose 112 mg/dL (65-110); Potassium 3.9 mmol/L (3.4-5.0); Sodium 137 mmol/L (137-145)
[2022-07-15 05:35] LABS: EDCOVIDSCREEN Negative (Negative)
[2022-07-15] MEDS: ONDANSETRON INJ 4 MG/2 ML VIAL IV PUSH ×2 (05:37→10:37)
--- NOTE | 2022-07-15 08:09 | PM.IMPN ---
Progress Note: A&P Assessment and Plan (1) Parotiditis: Code(s): K11.20 - Sialoadenitis, unspecified Status: Acute Assessment and Plan: Improving, continue antibiotics, appreciate ENT consult, compresses and milking of parotid gland. Would culture growing methicillin resistant staphylococcus sensitive to vancomycin and tetracyclines. 07/07: Patient continues to improved on vancomycin and cefepime. 07/09: Discontinue cefepime. Continue vancomycin while hospitalized. Will plan for a total duration of 7-10 days from 07/06/22. 07/11: WCX MRSA sensitive to only vancomycin & bactrim. Will continue vancomycin for now. 07/12: Will change to oral doxycycline to continue treatment for a total of 10 days 07/13: Leukocytosis normal. Will complete treatment with doxycycline on 07/14/2207/14: Doxy completed yesterday (2) Sepsis: Code(s): A41.9 - Sepsis, unspecified organism Status: Acute Assessment and Plan: Patient has recent history of suspect endocarditis and treatment for MRSA two days prior to presentation to the emergency department. 1/2 cultures from 07/04 with staphylococcus capitis but repeat cultures for 07/05/22 prior to increasing dose of cefepime finalized with no growth. Stap capitis is likely a contaminant. Resolved. (3) Metabolic encephalopathy: Code(s): G93.41 - Metabolic encephalopathy Status: Acute Assessment and Plan: Resolved. (4) Clostridial infection: Status: Acute Assessment and Plan: C. diff positive. Already on probiotic. Fidaxomicin 200 mg BID x 10 days to end on 07/17/2022 (5) Positive blood culture: Code(s): R78.81 - Bacteremia Status: Acute Assessment and Plan: 1/2 set of blood cultures from 07/04/22 growing staphylococcus capitis. Patient has recent history of suspect endocarditis and treatment for MRSA two days prior to presentation to the emergency department. Repeat blood cultures from 07/05/22 have no growth to date. This was likely a contaminant. Resolved. (6) Elevated troponin: Code(s): R77.8 - Other specified abnormalities of plasma proteins Status: Acute Assessment and Plan: Echo with EF 15-20%, which cardiology believes is likely stress cardiomyopathy and not ACS but does recommend a heart catheterization in the future. Patient is without chest pain. Gerson showed no vegetations (7) Type 2 diabetes mellitus: Code(s): E11.9 - Type 2 diabetes mellitus without complications Status: Acute Assessment and Plan: A1c is 4.9, no need for Accu-Cheks or insulin (8) Atrial fibrillation: Code(s): I48.91 - Unspecified atrial fibrillation Status: Acute Assessment and Plan: Having some tachycardia. Cardiology has increased metoprolol to 50 mg BID and discontinued sotalol. Home apixaban held starting 07/07/22 due to concern for bleeding and need for GERSON. -Continue enoxaparin (9) Bimalleolar fracture of right ankle: Qualifiers: Encounter type: subsequent encounter Fracture healing: with routine healing Fracture type: closed Qualified Code(s): S82.841D - Displaced bimalleolar fracture of right lower leg, subsequent encounter for closed fracture with routine healing Code(s): S82.841A - Displaced bimalleolar fracture of right lower leg, initial encounter for closed fracture Status: Acute Assessment and Plan: Appreciate orthopedic consultation, x-ray show good healing, cast can be removed and patient can be placed in a fracture boot for weight-bearing as tolerated with PT (10) Elevated serum creatinine: Code(s): R79.89 - Other specified abnormal findings of blood chemistry Status: Acute Assessment and Plan: Baseline creatinine was around 0.8 in May 2022. Renal ultrasound unable to visualize left kidney due to body habitus and notes normal right kidney without hydronephrosis. No e
[2022-07-15] MEDS: CHOLECALCIFEROL 1,000 UNITS TABLET 1000 UNITS PO (08:56)
[2022-07-15] MEDS: FIDAXOMICIN 200 MG TABLET PO (08:57)
[2022-07-15] MEDS: TOPIRAMATE 25 MG TABLET 50 MG PO (08:57)
[2022-07-15] MEDS: DOXYCYCLINE HYCLATE 100 MG TABLET PO (08:57)
[2022-07-15] MEDS: LEVOTHYROXINE SODIUM 75 MCG TABLET PO (08:57)
[2022-07-15] MEDS: FOLIC ACID 1 MG TABLET PO (08:57)
[2022-07-15] MEDS: SACCHAROMYCES BOULARDII 250 MG CAPSULE PO (08:57)
[2022-07-15] MEDS: CALCIUM CARBONATE (OSCAL) 500 MG TABLET 1000 MG PO (08:58)
[2022-07-15] MEDS: CYANOCOBALAMIN 1,000 MCG TABLET 1000 MCG PO (08:58)
[2022-07-15] MEDS: PANTOPRAZOLE 40 MG TABLET PO (08:58)
[2022-07-15] MEDS: APIXABAN 5 MG TABLET PO (08:58)
[2022-07-15] MEDS: SACUBITRIL/VALSARTAN 24-26 MG TABLET 1 TAB PO (08:58)
[2022-07-15 08:59] VITALS: PULSE 111
[2022-07-15] MEDS: METOPROLOL TARTRATE 50 MG TAB 100 MG PO (08:59)
[2022-07-15] MEDS: TOLNAFTATE 1% POWDER 45 GM BTL 1 APPLIC TOPICAL (09:00)
[2022-07-15] MEDS: MUPIROCIN 2% OINT 22 GM TUBE 1 APPLIC EACH NARE (09:01)
[2022-07-15] MEDS: HYDROcodone/acetaminophen (*CRX) 5-325 MG TABLET 1 TAB PO (09:54)
--- NOTE | 2022-07-15 11:30 | PC.NURSE ---
Patient complaining of nausea and states something hurts and points to upper chest throat area. When ask to describe pain she states it feels like a burning or pressure. Sanitary Aide gave Alma at [phone]. There is a call out to Dr Moise to give update. Patient is resting at this time and states I feel better and verbalizes nausea and burning has subsided after getting zofran
[2022-07-15] MEDS: FERROUS SULFATE 324 MG TABLET PO (12:06)
[2022-07-15] MEDS: MAGNESIUM OXIDE 400 MG TABLET PO (12:07)
[2022-07-15 14:10] VITALS: BP 107/70; PULSE 100; RESP 16; TEMP 36.2; O2SAT 99
--- NOTE | 2022-07-15 17:11 | PC.NURSE ---
Pt transferred to [facility] @ 1585 via [facility], Report was called to OLIVIA Silver at the facility at 1430
[2022-07-15 17:14] VITALS: PULSE 100
== END 2022-07-15 17:15 | DRG 871 ==
LOC: ANHED 07-05 00:34 → ANHIMU 07-05 01:17 → ANH3MED 07-10 14:48
PROVIDERS: Family Medicine; Internal Medicine; Internal Medicine Gastroenterology; Nurse Practitioner; Physician Assistant; Admitting Provider Internal Medicine; Emergency Provider Emergency Medicine; Visit Provider Student in an Organized Health Care Education/Training Program
PROC: 0DJ08ZZ Inspection of Upper Intestinal Tract, Via Natural or Artificial Opening Endoscopic (ICD-10-PCS; CPT 43235; principal; 2022-07-09 14:15)
PROC: 4A023N7 Measurement of Cardiac Sampling and Pressure, Left Heart, Percutaneous Approach (ICD-10-PCS; CPT 93312; principal; 2022-07-13 09:00)
PROC: 4A023N7 Measurement of Cardiac Sampling and Pressure, Left Heart, Percutaneous Approach (ICD-10-PCS; CPT 93452; 2022-07-13 10:30)
DX: A41.9 Sepsis, unspecified organism (principal); G93.41 Metabolic encephalopathy; Z68.43 Body mass index [BMI] 50.0-59.9, adult; I50.20 Unspecified systolic (congestive) heart failure; A04.72 Enterocolitis due to Clostridium difficile, not specified as recurrent; I51.81 Takotsubo syndrome; I13.0 Hypertensive heart and chronic kidney disease with heart failure and stage 1 through stage 4 chronic kidney disease, or unspecified chronic kidney disease; K92.1 Melena; K11.20 Sialoadenitis, unspecified; R77.8 Other specified abnormalities of plasma proteins; I45.10 Unspecified right bundle-branch block; I48.0 Paroxysmal atrial fibrillation; S82.841D Displaced bimalleolar fracture of right lower leg, subsequent encounter for closed fracture with routine healing; E66.01 Morbid (severe) obesity due to excess calories; D50.0 Iron deficiency anemia secondary to blood loss (chronic); I25.10 Atherosclerotic heart disease of native coronary artery without angina pectoris; K31.7 Polyp of stomach and duodenum; K29.70 Gastritis, unspecified, without bleeding; A49.02 Methicillin resistant Staphylococcus aureus infection, unspecified site; F31.9 Bipolar disorder, unspecified; N18.9 Chronic kidney disease, unspecified; N76.0 Acute vaginitis; K21.9 Gastro-esophageal reflux disease without esophagitis; I70.0 Atherosclerosis of aorta; E11.22 Type 2 diabetes mellitus with diabetic chronic kidney disease; Z20.822 Contact with and (suspected) exposure to COVID-19; Z95.0 Presence of cardiac pacemaker; Z79.01 Long term (current) use of anticoagulants; Z87.01 Personal history of pneumonia (recurrent); Z86.14 Personal history of Methicillin resistant Staphylococcus aureus infection; Z90.710 Acquired absence of both cervix and uterus; Z86.16 Personal history of COVID-19; Z90.49 Acquired absence of other specified parts of digestive tract; Z85.3 Personal history of malignant neoplasm of breast; Z90.13 Acquired absence of bilateral breasts and nipples; X58.XXXD Exposure to other specified factors, subsequent encounter
CPT/HCPCS: 36415; 70450; 70487; 71045; 72170; 73562; 73610; 76775; 80048; 80053; 80202; 81001; 82140; 82274; 82570; 82607; 82728; 82746; 82948; 83036; 83540; 83550; 83605; 83690; 83735; 84300; 84443; 84484; 84540; 85014; 85018; 85025; 85055; 85610; 85730; 86140; 87040; 87070; 87077; 87081; 87086; 87088; 87106; 87147; 87186; 87205; 87426; 87493; 93005; 93306; 93308; 93312; 93320; 93325; 93458; 93970; 93976; 96365; 96367; 99285; A9270; C1769; C1887; C1894; C8924; C9803; J0692; J1644; J1650; J2250; J2270; J2370; J2405; J2704; J3010; J3370; J7030; J7040; J7120; L2116; Q9957; Q9967; U0003; U0005

== ENCOUNTER 2022-07-25 13:25 | Inpatient (IN) | payer MEDICARE, MEDICAID, SELFPAY ==
[2022-07-25] VITALS (15 sets, daily range): BP systolic 85–108; BP diastolic 32–75; PULSE 65–116; RESP 12–18; TEMP 36.5–37; O2SAT 95–100; BMI 39.2
--- NOTE | ~2022-07-25 | CT_ITS ---
EXAMINATION: CT abdomen pelvis wo con DATE: 07/25/2022 17:44 INDICATION: abd pain TECHNIQUE: Computed tomography (CT) of the abdomen and pelvis was performed without intravenous contr ast. Automated exposure control and iterative reconstruction technique were employed. The dose-length product was 1544.53 mGy-cm. COMPARISON: None. FINDINGS: Lower thorax: Bibasilar dependent atelectasis. Small bilateral effusions. Incompletely visualized pac ing wires. Coronary artery calcification. Liver: Normal. Biliary/Gallbladder: Gallbladder is absent. No bile duct dilation. Pancreas: Atrophy. Spleen: Normal. Adrenals:No mass. Kidneys: Bilateral atrophy. Subcentimeter right upper pole hyperdense lesion, too small to characteri ze but most likely represents a hemorrhagic cyst. Nonobstructing bilateral calculi. GI tract: No small or large bowel dilation. Mild distal sigmoid and rectal wall edema. Fluid in the c olon as can be seen with diarrheal illness. Appendix not visualized. Mesentery/Peritoneum: No ascites, mass, or free air. Retroperitoneum: No mass. Atherosclerotic abdominal aortic and/or arterial calcifications. IVC filter . Pelvis: Uterus is absent. Bladder decompressed by a Dennison catheter.. Soft Tissues: Soft tissues and body wall unremarkable. Bones: No acute osseous finding. IMPRESSION: Small bilateral pleural effusions. Mild distal sigmoid and rectal wall edema as can be seen with coli tis/proctitis. Otherwise, no acute abdominopelvic process detected. Reviewed, dictated and finalized at location K. IMPRESSION: Small bilateral pleural effusions. Mild distal sigmoid and rectal wall edema as can be seen with colitis/proctitis. Otherwise, no acute abdominopelvic process detected.
--- NOTE | ~2022-07-25 | XR_ITS ---
XR chest 1V portable 07/25/2022 13:42 Indication: Chest pain. History of breast cancer. Procedure: AP portable chest Comparison: 07/04/2022 Findings: Cardiomegaly. No focal air space disease, pulmonary edema, pleural effusion or suspected pn eumothorax. Pacemaker leads are stable. Impression: 1: No acute cardiopulmonary disease. Reviewed, dictated and finalized at location A. Impression: 1: No acute cardiopulmonary disease.
--- NOTE | 2022-07-25 13:30 | ECG_ITS ---
Measurements Intervals [place] Rate: 102 P: RI: 0 QRS: -27 QRSD: 103 T: 108 QT: 347 QTc: 453 Interpretive Statements ATRIAL FIBRILLATION NONSPECIFIC ST-T WAVE ABNORMALITY COMPARED TO ECG 07/13/2022 11:21:24 ATRIAL FIBRILLATION NOW PRESENT Electronically Signed On 07-26-2022 11:32:02 CDT by Nicko Merlos M.D.
--- NOTE | 2022-07-25 14:12 | ED.GENADULT ---
HPI - General Adult General Chief complaint: Chest Pain Stated complaint: CP Time Seen by Provider: 07/25/22 13:30 Source: RN notes reviewed History of Present Illness HPI narrative: Patient presents emergency department from [facility] via EMS for chest pain. Patient states pain began approximately 3 hours ago. Pain is located across the bilateral lower chest and the upper abdomen but states the pain is described as a pressure in nature and does not radiate. She denies any nausea or vomiting states she does have diarrhea and was recently in the hospital for C. difficile states she finished her antibiotics but the diarrhea never stopped and she has had diarrhea continuously since being discharged she denies any fevers or chills shortness of breath or any other symptoms Related Data Home Medications Medication Instructions Recorded Confirmed Saccharomyces boulardii 250 mg 250 mg PO BID 07/05/22 07/05/22 capsule alprazolam 0.5 mg tablet 0.5 mg PO HS 07/05/22 07/05/22 aluminum-mag hydroxide-simethicone 30 ml PO Q6H PRN Heartburn 07/05/22 07/05/22 225 mg-200 mg-25 mg/5 mL oral susp apixaban 5 mg tablet (Eliquis) 5 mg PO BID 07/05/22 07/05/22 atorvastatin 40 mg tablet 40 mg PO HS 07/05/22 07/05/22 bisacodyl 10 mg rectal suppository 10 mg RECTAL DAILY PRN Constipation 07/05/22 07/05/22 bupropion HCl 150 mg tablet,12 hr 150 mg PO DAILY 07/05/22 07/05/22 sustained-release calcium 600 mg capsule 1,200 mg PO DAILY 07/05/22 07/05/22 cholecalciferol (vitamin D3) 25 25 mcg PO DAILY 07/05/22 07/05/22 mcg (1,000 unit) tablet cyanocobalamin (vitamin B-12) 1,000 mcg PO DAILY 07/05/22 07/05/22 1,000 mcg tablet diltiazem HCl 300 mg 300 mg PO DAILY 07/05/22 07/05/22 capsule,extended release 24 hr esomeprazole magnesium 20 mg 20 mg PO DAILY 07/05/22 07/05/22 capsule,delayed release ferrous sulfate 325 mg (65 mg 325 mg PO BID 07/05/22 07/05/22 iron) tablet fluoxetine 20 mg capsule 20 mg PO DAILY 07/05/22 07/05/22 folic acid 1 mg tablet 1 mg PO DAILY 07/05/22 07/05/22 furosemide 80 mg tablet 80 mg PO DAILY 07/05/22 07/05/22 gabapentin 100 mg capsule 100 mg PO BID 07/05/22 07/05/22 hydrocodone 5 mg-acetaminophen 325 5 - 325 tablet PO BID 07/05/22 07/05/22 mg tablet levothyroxine 75 mcg tablet 75 mcg PO DAILY 07/05/22 07/05/22 magnesium citrate 296 ml PO DAILY PRN Constipation 07/05/22 07/05/22 magnesium hydroxide 400 mg/5 mL 30 ml PO HS PRN Constipation 07/05/22 07/05/22 oral suspension (Milk of Magnesia) magnesium oxide 400 mg PO DAILY 07/05/22 07/05/22 mupirocin calcium 2 % nasal 1 ea intranasal QSHIFT 07/05/22 07/05/22 ointment potassium chloride 20 mEq 40 meq PO TID 07/05/22 07/05/22 tablet,extended release(part/cryst) sodium chloride 0.9 % (flush) 10 ml IV Q12H 07/05/22 07/05/22 (Normal Saline Flush 0.9 % injection syringe) sodium phosphates 19 gram-7 118 ml RECTAL ONCE PRN Constipation 07/05/22 07/05/22 gram/118 mL enema (Fleet Enema) sotalol 80 mg tablet 80 mg PO BID 07/05/22 07/05/22 sucralfate 1 gram tablet 1 g PO TID 07/05/22 07/05/22 topiramate 50 mg tablet 50 mg PO BID 07/05/22 07/05/22 trazodone 100 mg tablet 100 mg PO HS 07/05/22 07/05/22 Allergies Allergy/AdvReac Type Severity Reaction Status Date / Time Penicillins Allergy Intermediate Swelling Verified 07/25/22 13:55 Review of Systems Review of Systems: Gen.: Denies fevers or chills ENT: Denies congestion Respiratory: Denies shortness of breath or cough CV: D no chest pain GI: Reports upper abdominal pain denies any nausea or vomiting reports diarrhea denies burning, urgency, frequency or hematuria Musculoskeletal: Denies back pain or muscle pain Neuro: Denies numbness, tingling, weakness or focal weakness Skin: Denies rash Except as documented, all other systems reviewed and negative [facility] Past Medical History Medical History Bimalleolar fracture of right ankle Bipolar disorder Sara
[2022-07-25 14:26] LABS: Basophils Absolute Auto 0.1 K/mm3 (0.0-0.1); Basophils Percent Auto 1.1 % (0.2-1.2); Eosinophils Absolute Auto 0.2 K/mm3 (0-0.3); Eosinophils Percent Auto 2.3 % (0-4.4); Hemoglobin 11.4 g/dL (12.0-15.0); Immature Granulocyte Absolute 0.03 K/mm3 (0.00-0.031); Immature Granulocyte Percent A 0.5 % (0-0.5); Lymphocytes Absolute Auto 2.59 K/mm3 (0.9-3.2); Lymphocytes Percent Auto 40.2 % (18.3-44.2); Mean Corpuscular HGB Conc 32.6 g/dl (32-36); Mean Corpuscular Hemoglobin 34.8 pg (26-34); Mean Corpuscular Volume 106.7 fl (80-100); Mean Platelet Volume 12.5 fl (7.4-10.4); Monocytes Absolute Auto 0.7 K/mm3 (0.1-0.6); Monocytes Percent Auto 10.4 % (2.6-8.5); Neutrophils Absolute Auto 2.9 K/mm3 (1.3-6.7); Neutrophils Percent Auto 45.5 % (45.5-73.1); Nucleated Red Blood Cells Perc 0.3 % (0.0-0.2); Platelet Count Result 270 k/mm3 (150-375); Red Blood Count 3.28 M/mm3 (4.2-5.4); Red Cell Distribution Width 16.6 % (11.5-14.5); White Blood Count 6.5 K/mm3 (4.5-10.0)
[2022-07-25 14:42] LABS: INR 1.6
[2022-07-25 14:48] LABS: Macrocytosis 1+ (NORMAL); Ovalocytes 1+ (NORMAL); Platelet Estimate Adequate (Adequate); Schistocytes None Seen (NORMAL)
[2022-07-25] MEDS: SODIUM CHLORIDE 0.9% IV 1,000 ML 999 ML IV CONT ×2 (14:53→17:07)
[2022-07-25 15:38] LABS: Alanine Aminotransferase 29 U/L (6-35); Albumin Level 2.9 g/dL (3.5-5.1); Alkaline Phosphatase 116 U/L (38-126); Anion Gap 6 mmol/L (8-16); Aspartate Amino Transferase 60 U/L (14-36); Bilirubin,Total 0.6 mg/dL (0.2-1.3); Blood Urea Nitrogen 13 mg/dL (7-17); Calcium 9.1 mg/dL (8.4-10.2); Carbon Dioxide 22 mmol/L (22-30); Chloride 107 mmol/L (98-107); Estimated CRCL calculation 42 ml/min; Estimated Glomerular Filt Rate 40; Glucose 100 mg/dL (65-110); Lipase 250 U/L (23-300); Potassium 4.7 mmol/L (3.4-5.0); Sodium 135 mmol/L (137-145)
[2022-07-25 17:01] LABS: SARS-CoV-2 RNA PCR Negative
[2022-07-25 17:20] LABS: Lactic Acid Reflex 0.8 mmol/L (0.7-2.0)
[2022-07-25 17:45] LABS: Troponin I 0.222 ng/mL (0.000-0.034)
--- NOTE | 2022-07-25 19:42 | ADMGEN ---
This patient, Kenya Oropeza, was admitted to IMU Room 212-01. Patient/family oriented to hospital policies and general routines including ID bracelet, bed and alarms, visiting hours, pain management, procedures, bathroom and other care routines, personal items, smoking policy, room service/diet, and visiting hours. Information on how to activate the Rapid Response Team has been discussed. Patient/Family are encouraged to report perceived risks to care and to ask questions if they do not understand what they are told or what they should do.
--- NOTE | 2022-07-25 20:00 | PM.IMHP ---
H&P: HPI History of Present Illness Date/Time: 07/25/22 20:00 Chief Complaint: Chest pain. Narrative: This is a 72-year-old female with paroxysmal atrial fibrillation, type 2 diabetes mellitus hypertension, nonischemic cardiomyopathy with nonobstructing coronary arteries on cardiac catheterization in June 2022, and several other comorbidities who presented to the ED via EMS from [facility] for evaluation of chest pain. She reports chest pain that has been present for approximately 5 or 6 hours however she points more so to her abdomen than to her chest. She has a hard time describing what it is that she is feeling and she tells me that is just sore. It seems to be more situated in the periumbilical region though she does indicate that it radiates somewhat into the mid chest area. A CT of the abdomen pelvis showed mild distal sigmoid and rectal wall edema but otherwise no acute abdominal pelvic process. With further questioning she does admit that she is still having loose stools after having completed fidaxomicin for a recent C diff infection. Due to an elevated troponin (0.210) she is being admitted for further monitoring. She is not having any chest pain at the time my evaluation she also denies shortness of breath, nausea, vomiting, and sweats. Review of Systems Review of Systems: Twelve systems were reviewed and are negative except for as per HPI. [facility] Past Medical History Medical History (Updated 07/26/22 @ 15:40 by Dedra Devlin PA-C) Bimalleolar fracture of right ankle Bipolar disorder Breast cancer Coronary artery disease Endocarditis Hypertension MRSA bacteremia Nonischemic cardiomyopathy Paroxysmal atrial fibrillation Type 2 diabetes mellitus Surgical History Surgical History (Updated 07/26/22 @ 15:40 by Dedra Devlin PA-C) History of bilateral mastectomy History of cardiac catheterization History of cholecystectomy History of hysterectomy History of permanent cardiac pacemaker placement Family History Family History Other Diabetes mellitus Hypertension Social History Social History Social History: Surrogate medical decision maker: alvaro Milligan. Code status: Do not resuscitate. 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nfirmed Type Saccharomyces boulardii 250 mg 250 mg PO BID 07/05/22 07/25/22 History capsule alprazolam 0.5 mg tablet 0.5 mg PO HS 07/05/22 07/25/22 History apixaban 5 mg tablet (Eliquis) 5 mg PO BID 07/05/22 07/25/22 History atorvastatin 40 mg tablet 40 mg PO HS 07/05/22 07/25/22 History bisacodyl 10 mg rectal suppository 10 mg RECTAL DAILY PRN Constipation 07/05/22 07/25/22 History bupropion HCl 150 mg tablet,12 hr 150 mg PO DAILY 07/05/22 07/25/22 History sustained-release calcium 600 mg capsule 1,200 mg PO DAILY 07/05/22 07/25/22 History cholecalciferol (vitamin D3) 25 25 mcg PO DAILY 07/05/22 07/25/22 History mcg (1,000 unit) tablet cyanocobalamin (vitamin B-12) 1,000 mcg PO DAILY 07/05/22 07/25/22 History 1,000 mcg tablet diltiazem HCl 300 mg 300 mg PO DAILY 07/05/22 07/25/22 History capsule,extended release 24 hr ferrous sulfate 325 mg (65 mg 325 mg PO BID 07/05/22 07/25/22 History iron) tablet fluoxetine 20 mg capsule 40 mg PO DAILY 07/05/22 07/25/22 History folic acid 1 mg tablet 1 mg PO DAILY 07/05/22 07/25/22 History furosemide 80 mg tablet 80 mg PO DAILY 07/05/22 07/25/22 History gabapentin 100 mg capsule 100 mg PO BID 07/05/22 07/25/22 History hydrocodone 5 mg-acetaminophen 325 5 - 325 tablet PO BID 07/05/22 07/25/22 History mg tablet levothyroxine 75 mc
[2022-07-25 20:04] LABS: Magnesium 2.2 mg/dL (1.6-2.3)
[2022-07-25 21:44] LABS: Troponin I 0.249 ng/mL (0.000-0.034)
[2022-07-26] VITALS (14 sets, daily range): BP systolic 92–103; BP diastolic 46–73; PULSE 79–106; RESP 16–22; TEMP 36.1–36.5; O2SAT 95–99; BMI 39.6
[2022-07-26] LABS: Glucose Point of Care 86 mg/dl (65-105)
[2022-07-26 00:30] LABS: Add Urine Microscopic? YES; Appearance Urine Cloudy (Clear); Bacteria Urine Trace /hpf; Bilirubin Urine Negative (Negative); Blood Urine 2+ (Negative); Color Urine Yellow (Yellow); Glucose Urine UA Negative (Negative); Ketones Urine Negative (Negative); Leukocyte Esterase Ur 3+ LEU/UL (Negative); Mucus Urine Rare /lpf; Nitrate Urine Negative (Negative); Protein Urine 2+ mg/dL (Negative); RBC Urine 21-50 /hpf (0-2); Specific Grav Ur 1.013 (1.001-1.035); Urobilinogen Urine Negative mg/dL (<2.0); WBC Urine >75 /hpf
[2022-07-26] MEDS: LEVOTHYROXINE SODIUM 75 MCG TABLET PO (06:29)
[2022-07-26] MEDS: SUCRALFATE 1 GM TABLET PO ×3 (06:31→17:43)
[2022-07-26 07:47] LABS: Toxigenic C. Diff NEGATIVE (NEGATIVE)
[2022-07-26] MEDS: buPROPion HCL SR (12 HR) 150 MG TAB PO (09:10)
[2022-07-26] MEDS: CALCIUM CARBONATE (OSCAL) 500 MG TABLET 1000 MG PO (09:11)
[2022-07-26] MEDS: PANTOPRAZOLE 40 MG TABLET PO (09:11)
[2022-07-26] MEDS: SOTALOL HCL 80 MG TABLET PO ×2 (09:11→20:53)
[2022-07-26] MEDS: SACUBITRIL/VALSARTAN 24-26 MG TABLET 1 TAB PO (09:11)
[2022-07-26] MEDS: POTASSIUM CHLORIDE 20 MEQ TABLET.ER 40 MEQ PO ×3 (09:11→17:43)
[2022-07-26] MEDS: FERROUS SULFATE 324 MG TABLET PO ×2 (09:11→17:43)
[2022-07-26] MEDS: SACCHAROMYCES BOULARDII 250 MG CAPSULE PO ×2 (09:11→17:43)
[2022-07-26] MEDS: FUROSEMIDE 80 MG TABLET PO (09:11)
[2022-07-26] MEDS: MAGNESIUM OXIDE 400 MG TABLET PO (09:12)
[2022-07-26] MEDS: CHOLECALCIFEROL 1,000 UNITS TABLET 1000 UNITS PO (09:12)
[2022-07-26] MEDS: FOLIC ACID 1 MG TABLET PO (09:12)
[2022-07-26] MEDS: FLUoxetine HCL 20 MG CAPSULE 40 MG PO (09:12)
[2022-07-26] MEDS: METOPROLOL SUCCINATE EXT REL 100 MG TABCR PO (09:12)
[2022-07-26] MEDS: APIXABAN 5 MG TABLET PO ×2 (09:12→20:53)
[2022-07-26] MEDS: GABAPENTIN 100 MG CAPSULE PO ×2 (09:12→17:43)
[2022-07-26] MEDS: TOPIRAMATE 25 MG TABLET 50 MG PO ×2 (09:12→20:54)
[2022-07-26] MEDS: CYANOCOBALAMIN 1,000 MCG TABLET 1000 MCG PO (09:13)
--- NOTE | 2022-07-26 10:24 | PM.IMPN ---
Progress Note: A&P Assessment and Plan (1) Chest pain: Code(s): R07.9 - Chest pain, unspecified Status: Acute Assessment and Plan: denies chest pain (2) Elevated troponin: Code(s): R77.8 - Other specified abnormalities of plasma proteins Status: Acute Assessment and Plan: monitor recent cardiac workup negative (3) Abdominal pain: Code(s): R10.9 - Unspecified abdominal pain Status: Acute Assessment and Plan: recently treated for C diff, still having loose stools. Will restart treatment again. Subjective Date/time seen: 07/26/22 10:24 still having loose stools Exam Narrative: General: Chronically ill-appearing female supine in bed in no distress. Weight: 106.8 kilograms. BMI: 39.2. HEENT: PERRL, EOMI. Sclera anicteric. Tacky mucous membranes. Neck: Supple. Respiratory: Lungs are clear to auscultation bilaterally. Cardiovascular: Regular rate and rhythm with S1-S2. Gastrointestinal: Abdomen is soft, and obese with positive bowel sounds. She is tender to palpation in the periumbilical region and somewhat in the right upper quadrant. No guarding or rebound tenderness. No tenderness to palpation over the left lower quadrant. Skin: Warm and dry. Extremities: No cyanosis, clubbing, or significant edema. Radial and pedal pulses intact. Neurological: Alert x2 Cranial nerves 2-12 are grossly intact. Speech is clear. No facial asymmetry. No gross focal deficits to casual conversation. Psychiatric: Pleasant and cooperative. She is a poor historian and a bit confused. Objective Data Vital Signs Vital Signs: Vital Signs - 24 hr 07/25/22 13:43 07/25/22 13:51 07/25/22 13:51 Temperature 98.6 F Pulse Rate 100 100 Respiratory Rate 18 Blood Pressure 95/55 L Pulse Oximetry 96 96 Oxygen Delivery Room Air Room Air 07/25/22 13:53 07/25/22 14:35 07/25/22 16:12 Temperature Pulse Rate 98 83 Respiratory Rate 18 18 Blood Pressure 95/55 L 95/54 L Pulse Oximetry 96 95 98 Oxygen Delivery Room Air 07/25/22 14:08 07/25/22 14:33 07/25/22 14:47 Temperature Pulse Rate 97 106 H 104 H Respiratory Rate 12 18 18 Blood Pressure 88/40 L 88/72 L 89/46 L Pulse Oximetry 96 96 99 Oxygen Delivery 07/25/22 15:01 07/25/22 17:16 07/25/22 17:39 Temperature Pulse Rate 96 98 65 Respiratory Rate 18 18 18 Blood Pressure 89/58 L 85/57 L 95/57 L Pulse Oximetry 98 98 98 Oxygen Delivery 07/25/22 18:35 07/25/22 20:00 07/25/22 23:25 Temperature 98.3 F 98.0 F 97.7 F Pulse Rate 116 H 100 108 H Respiratory Rate 16 16 16 Blood Pressure 100/32 L 90/51 L 108/75 Pulse Oximetry 100 98 99 Oxygen Delivery 07/25/22 20:00 07/25/22 22:00 07/26/22 00:00 Temperature Pulse Rate 93 72 84 Respiratory Rate Blood Pressure Pulse Oximetry Oxygen Delivery 07/26/22 02:00 07/26/22 04:00 07/26/22 04:00 Temperature 97.3 F L Pulse Rate 87 101 H 88 Respiratory Rate 16 Blood Pressure 103/57 L Pulse Oximetry 98 Oxygen Delivery 07/26/22 05:47 07/26/22 08:00 07/26/22 09:11 Temperature 97.2 F L Pulse Rate 79 85 85 Respiratory Rate 18 Blood Pressure 100/73 Pulse Oximetry 95 Oxygen Delivery 07/26/22 09:12 Temperature Pulse Rate 85 Respiratory Rate Blood Pressure Pulse Oximetry Oxygen Delivery Intake/Output Intake/Output: Intake & Output 07/23/22 07/24/22 07/25/22 07/26/22 23:59 23:59 23:59 23:59 Intake Total 1100 Output Total 1100 Balance 1100 -1100 Meds/Results Medications: Active Medications Generic Name Dose Route Start Last Admin Trade Name Ramez PRN Reason Stop Dose Admin Alprazolam 0.5 mg 07/26/22 01:40 07/26/22 01:55 Alprazolam (*Crx) 0.5 Mg Tablet PO Not Given HS MAY Apixaban 5 mg 07/26/22 09:00 07/26/22 09:12 Apixaban 5 Mg Tablet PO 5 mg Q12HR MAY Administration Atorvastatin Calcium 40 mg 07/26/22 01:30 07/26/22 01:55 A
--- NOTE | 2022-07-26 13:15 | PCNSR ---
On 07/26/22, the student,Ryan Talley, provided care and completed [facility] documentation on this patient. I have reviewed the student's documentation and agree with the findings.
[2022-07-26] MEDS: ATORVASTATIN 40 MG TABLET PO (20:53)
[2022-07-26] MEDS: FIDAXOMICIN 200 MG TABLET PO (20:53)
--- NOTE | 2022-07-26 21:15 | PC.NURSE ---
This patient, Kenya Oropeza, was transferred to [facility] on 07/26/22 at 2110. Personal belongings sent with patient. Report given to OLIVIA Ramirez. Appropriate documentation sent with patient.
--- NOTE | 2022-07-26 21:20 | PC.NURSE ---
0 received patient from IMU per bed
[2022-07-27] VITALS (12 sets, daily range): BP systolic 88–108; BP diastolic 42–64; PULSE 66–107; RESP 14–18; TEMP 36.5–36.7; O2SAT 91–99
[2022-07-27] MEDS: LEVOTHYROXINE SODIUM 75 MCG TABLET PO (06:08)
[2022-07-27] MEDS: SUCRALFATE 1 GM TABLET PO ×3 (06:08→15:55)
[2022-07-27] MEDS: APIXABAN 5 MG TABLET PO ×2 (08:04→23:19)
[2022-07-27] MEDS: FERROUS SULFATE 324 MG TABLET PO ×2 (08:04→17:16)
[2022-07-27] MEDS: buPROPion HCL SR (12 HR) 150 MG TAB PO (08:05)
[2022-07-27] MEDS: CALCIUM CARBONATE (OSCAL) 500 MG TABLET 1000 MG PO (08:06)
[2022-07-27] MEDS: CHOLECALCIFEROL 1,000 UNITS TABLET 1000 UNITS PO (08:06)
[2022-07-27] MEDS: CYANOCOBALAMIN 1,000 MCG TABLET 1000 MCG PO (08:06)
[2022-07-27] MEDS: FLUoxetine HCL 20 MG CAPSULE 40 MG PO (08:07)
[2022-07-27] MEDS: FOLIC ACID 1 MG TABLET PO (08:07)
[2022-07-27] MEDS: MAGNESIUM OXIDE 400 MG TABLET PO (08:08)
[2022-07-27] MEDS: GABAPENTIN 100 MG CAPSULE PO ×2 (08:08→17:17)
[2022-07-27] MEDS: FUROSEMIDE 80 MG TABLET PO (08:08)
[2022-07-27] MEDS: SACCHAROMYCES BOULARDII 250 MG CAPSULE PO ×2 (08:09→17:17)
[2022-07-27] MEDS: PANTOPRAZOLE 40 MG TABLET PO (08:09)
[2022-07-27] MEDS: SACUBITRIL/VALSARTAN 24-26 MG TABLET 1 TAB PO ×2 (08:09→23:19)
[2022-07-27] MEDS: SALIVA SUBSTITUTE COMBO RINSE 237 ML BOTTLE 15 ML PO ×4 (08:10→23:20)
[2022-07-27] MEDS: SOTALOL HCL 80 MG TABLET PO ×2 (08:10→23:20)
[2022-07-27] MEDS: TOPIRAMATE 25 MG TABLET 50 MG PO ×2 (08:11→23:21)
--- NOTE | 2022-07-27 10:16 | PM.IMPN ---
Progress Note: A&P Assessment and Plan (1) Chest pain: Code(s): R07.9 - Chest pain, unspecified Status: Acute Assessment and Plan: patient denies chest pain. Patient just had extensive cardiac workup including catheterization within the last Month no additional cardiac workup needed. (2) Elevated troponin: Code(s): R77.8 - Other specified abnormalities of plasma proteins Status: Acute Assessment and Plan: Likely type 2 [place]. (3) Abdominal pain: Code(s): R10.9 - Unspecified abdominal pain Status: Acute Assessment and Plan: patient denies abdominal pain fecal management system will be DC. Loose stools have improved Recent C diff infection that was treated. C diff here was negative. (4) Heart failure with reduced ejection fraction: Code(s): I50.20 - Unspecified systolic (congestive) heart failure Status: Acute Assessment and Plan: appears compensated (5) Nonischemic cardiomyopathy: Code(s): I42.8 - Other cardiomyopathies Status: Acute (6) Type 2 diabetes mellitus: Code(s): E11.9 - Type 2 diabetes mellitus without complications Status: Acute Assessment and Plan: monitor blood sugars Plan DC fecal management system today. If his stools can be managed, she can be discharged. Subjective Date/time seen: 07/27/22 10:16 No complaints Exam Narrative: General: Chronically ill-appearing female supine in bed in no distress. Weight: 106.8 kilograms. BMI: 39.2. HEENT: PERRL, EOMI. Sclera anicteric. Tacky mucous membranes. Neck: Supple. Respiratory: Lungs are clear to auscultation bilaterally. Cardiovascular: Regular rate and rhythm with S1-S2. Gastrointestinal: Abdomen is soft, and obese with positive bowel sounds. She is tender to palpation in the periumbilical region and somewhat in the right upper quadrant. No guarding or rebound tenderness. No tenderness to palpation over the left lower quadrant. Skin: Warm and dry. Extremities: No cyanosis, clubbing, or significant edema. Radial and pedal pulses intact. Neurological: Alert x2 Cranial nerves 2-12 are grossly intact. Speech is clear. No facial asymmetry. No gross focal deficits to casual conversation. Psychiatric: Pleasant and cooperative. She is a poor historian and a bit confused. Objective Data Vital Signs Vital Signs: Vital Signs - 24 hr 07/26/22 12:00 07/26/22 16:00 07/26/22 12:00 Temperature 97 F L 97.5 F L Pulse Rate 103 H 105 H 103 H Respiratory Rate 20 22 H Blood Pressure 100/46 L 100/65 Pulse Oximetry 98 99 Oxygen Delivery 07/26/22 14:00 07/26/22 12:00 07/26/22 20:53 Temperature Pulse Rate 105 H 101 H Respiratory Rate Blood Pressure Pulse Oximetry Oxygen Delivery Room Air 07/26/22 20:00 07/26/22 20:00 07/26/22 21:15 Temperature 97.7 F Pulse Rate 101 H 103 H 103 H Respiratory Rate 16 16 Blood Pressure 92/53 L Pulse Oximetry 98 98 Oxygen Delivery Room Air 07/26/22 20:00 07/27/22 00:23 07/27/22 00:00 Temperature 97.7 F Pulse Rate 106 H 95 99 Respiratory Rate 14 Blood Pressure 96/53 L Pulse Oximetry 91 Oxygen Delivery 07/27/22 04:00 07/27/22 06:16 07/27/22 08:10 Temperature 98.0 F Pulse Rate 102 H 100 104 H Respiratory Rate 18 Blood Pressure 94/55 L Pulse Oximetry 98 Oxygen Delivery 07/27/22 08:00 Temperature 97.9 F Pulse Rate 100 Respiratory Rate 18 Blood Pressure 108/64 Pulse Oximetry 99 Oxygen Delivery Intake/Output Intake/Output: Intake & Output 07/24/22 07/25/22 07/26/22 07/27/22 23:59 23:59 23:59 23:59 Intake Total 1100 1160 300 Output Total 1550 350 Balance 1100 -390 -50 Meds/Results Medications: Active Medications Generic Name Dose Route Start Last Admin Trade Name Freq PRN Reason Stop Dose Admin Alprazolam 0.5 mg 07/26/22 01:40 07/26/22 20:51 Alprazolam (*Crx) 0.5 Mg Tablet PO Not Gi
[2022-07-27] MEDS: ALPRAZolam (*CRX) 0.5 MG TABLET PO (23:19)
[2022-07-27] MEDS: ATORVASTATIN 40 MG TABLET PO (23:19)
[2022-07-27] MEDS: traZODone HCL 50 MG TABLET 100 MG PO (23:21)
[2022-07-28] VITALS (16 sets, daily range): BP systolic 82–102; BP diastolic 43–59; PULSE 61–95; RESP 12–16; TEMP 36.4–36.9; O2SAT 97–100
[2022-07-28] MEDS: LEVOTHYROXINE SODIUM 75 MCG TABLET PO (05:48)
[2022-07-28] MEDS: SUCRALFATE 1 GM TABLET PO ×3 (06:27→17:00)
[2022-07-28] MEDS: CYANOCOBALAMIN 1,000 MCG TABLET 1000 MCG PO (08:02)
[2022-07-28] MEDS: buPROPion HCL SR (12 HR) 150 MG TAB PO (08:03)
[2022-07-28] MEDS: TOPIRAMATE 25 MG TABLET 50 MG PO ×2 (08:03→21:29)
[2022-07-28] MEDS: SACUBITRIL/VALSARTAN 24-26 MG TABLET 1 TAB PO ×2 (08:03→21:28)
[2022-07-28] MEDS: SACCHAROMYCES BOULARDII 250 MG CAPSULE PO ×2 (08:03→17:01)
[2022-07-28] MEDS: PANTOPRAZOLE 40 MG TABLET PO (08:04)
[2022-07-28] MEDS: MAGNESIUM OXIDE 400 MG TABLET PO (08:04)
[2022-07-28] MEDS: CHOLECALCIFEROL 1,000 UNITS TABLET 1000 UNITS PO (08:04)
[2022-07-28] MEDS: GABAPENTIN 100 MG CAPSULE PO ×2 (08:05→17:00)
[2022-07-28] MEDS: FUROSEMIDE 80 MG TABLET PO (08:05)
[2022-07-28] MEDS: FOLIC ACID 1 MG TABLET PO (08:05)
[2022-07-28] MEDS: FLUoxetine HCL 20 MG CAPSULE 40 MG PO (08:05)
[2022-07-28] MEDS: CALCIUM CARBONATE (OSCAL) 500 MG TABLET 1000 MG PO (08:06)
[2022-07-28] MEDS: APIXABAN 5 MG TABLET PO ×2 (08:06→21:28)
[2022-07-28] MEDS: FERROUS SULFATE 324 MG TABLET PO ×2 (08:06→17:00)
[2022-07-28] MEDS: SALIVA SUBSTITUTE COMBO RINSE 237 ML BOTTLE 15 ML PO ×4 (08:07→21:28)
[2022-07-28] MEDS: SOTALOL HCL 80 MG TABLET PO (10:38)
--- NOTE | 2022-07-28 13:54 | PM.IMPN ---
Progress Note: A&P Assessment and Plan (1) Hypotension: Code(s): I95.9 - Hypotension, unspecified Status: Acute Assessment and Plan: Called by RN about the low BP. She had already given most of the patient's medication except the Sotalol and Metoprolol. Metoprolol held. She may be over diuresed. Will hold Lasix for tomorrow and decrease the Diltiazem. Discussed with Cardiology. May need their input if continues to have low BP. Patient not up so currently not symptomatic. (2) Chest pain: Code(s): R07.9 - Chest pain, unspecified Status: Acute Assessment and Plan: Patient denies chest pain today. EKG showing nonspecific ST-t wave changes. Trop 0.2 and flat. Patient just had extensive cardiac workup including catheterization within the last month. Suspect CP related to GI etiology. Elevated Trop could be related to still declining values from about 2 weeks ago. No additional cardiac workup planned (3) Elevated troponin: Code(s): R77.8 - Other specified abnormalities of plasma proteins Status: Acute Assessment and Plan: As above (4) Abdominal pain: Code(s): R10.9 - Unspecified abdominal pain Status: Acute Assessment and Plan: Patient denies abdominal pain today but states pain only with palpation. SHe has been having diarrhea requiring a fecal management system but diarrhea resolving. Fecal management system has been removed. She had a recent C diff infection that was treated. C diff here was negative. (5) Atrial fibrillation: Code(s): I48.91 - Unspecified atrial fibrillation Status: Acute Assessment and Plan: Patient has chronic atrial fibrillation. She is on Eliquis. She is also on diltiazem, sotalol and metoprolol for rate control. Metoprolol held today because of the hypotension. Will continue metoprolol and sotalol. Will also continue all diltiazem but decreased dose slightly. Continue telemetry. (6) Heart failure with reduced ejection fraction: Code(s): I50.20 - Unspecified systolic (congestive) heart failure Status: Acute Assessment and Plan: Echo last month showing EF 15-20% felt to be NICMP. Appears compensated. Continue medical management (7) Nonischemic cardiomyopathy: Code(s): I42.8 - Other cardiomyopathies Status: Acute Assessment and Plan: As above (8) Type 2 diabetes mellitus: Code(s): E11.9 - Type 2 diabetes mellitus without complications Status: Acute Assessment and Plan: A1c 4.9. The patient's blood glucose was reviewed on 07/28 Glucose not monitored. Not on home medications for diabetes. Subjective Date/time seen: 07/28/22 13:54 Interval history: 72yo female with CHF, DM and ELIESER here for chest pain. Assuming care. Chart reviewed. Patient states she slept well. No problems overnight. Denies chest pain. Diarrhea is better. She normally lives with her but she is over at [facility] for rehab. She is not able to walk a since injuring her ankles. She states her chest pain feels like a burning or pressure describes as indigestion. It has been going on off for the past 18 months. denies nausea. No radiation to the pain. Pain is usually better with antacids. Doctor Jesús is her blocker heated metal forms. Exam Narrative: AF 97.9 99/44 63 16 100% ra Gen - NARD Lying semi recumbent in bed. Chest - CTA bilaterally, nml RR CV - RRR S1/S2. Telemetry showing normal sinus rhythm with alarms showing occasional AFib Abd - soft. mild diffuse diffuse tenderness without guarding or rebound Ext - trace pedal edema (mostly in feet) Neuro - Alert and oriented to hospital (but not name) and year but not month or Zhanna name. minimal dorsi or plantar flexion Psych - Nml mood and affect Skin - Warm and dry Objective Data Vital Signs Vital Signs: Vital Signs - 24 hr 07/27/22 15:08 07/27/22 16:00 07/27/22 16:00 Te
[2022-07-28] MEDS: ALPRAZolam (*CRX) 0.5 MG TABLET PO (21:28)
[2022-07-28] MEDS: traZODone HCL 50 MG TABLET 100 MG PO (21:30)
[2022-07-28] MEDS: ATORVASTATIN 40 MG TABLET PO (21:51)
[2022-07-28] MEDS: MIDODRINE HCL 10 MG TABLET PO (22:08)
[2022-07-28 22:31] LABS: Basophils Percent Auto 0.8 % (0.2-1.2); Eosinophils Absolute Auto 0.2 K/mm3 (0-0.3); Eosinophils Percent Auto 3.5 % (0-4.4); Hematocrit 32.1 % (37.0-47.0); Hemoglobin 10.1 g/dL (12.0-15.0); Immature Granulocyte Absolute 0.03 K/mm3 (0.00-0.031); Immature Granulocyte Percent A 0.6 % (0-0.5); Lymphocytes Absolute Auto 2.16 K/mm3 (0.9-3.2); Lymphocytes Percent Auto 44.2 % (18.3-44.2); Mean Corpuscular HGB Conc 31.5 g/dl (32-36); Mean Corpuscular Hemoglobin 35.2 pg (26-34); Mean Corpuscular Volume 111.8 fl (80-100); Mean Platelet Volume 13.6 fl (7.4-10.4); Monocytes Absolute Auto 0.6 K/mm3 (0.1-0.6); Monocytes Percent Auto 12.5 % (2.6-8.5); Neutrophils Absolute Auto 1.9 K/mm3 (1.3-6.7); Neutrophils Percent Auto 38.4 % (45.5-73.1); Nucleated Red Blood Cells Perc 0.4 % (0.0-0.2); Platelet Count Result 202 k/mm3 (150-375); Red Blood Count 2.87 M/mm3 (4.2-5.4); Red Cell Distribution Width 16.6 % (11.5-14.5); White Blood Count 4.9 K/mm3 (4.5-10.0)
[2022-07-28 22:43] LABS: Alanine Aminotransferase 25 U/L (6-35); Albumin Level 2.6 g/dL (3.5-5.1); Alkaline Phosphatase 101 U/L (38-126); Anion Gap 6 mmol/L (8-16); Aspartate Amino Transferase 40 U/L (14-36); Bilirubin,Total 0.4 mg/dL (0.2-1.3); Blood Urea Nitrogen 13 mg/dL (7-17); Calcium 9.1 mg/dL (8.4-10.2); Carbon Dioxide 21 mmol/L (22-30); Chloride 107 mmol/L (98-107); Estimated CRCL calculation 34 ml/min; Estimated Glomerular Filt Rate 32; Glucose 93 mg/dL (65-110); Potassium 3.7 mmol/L (3.4-5.0); Sodium 134 mmol/L (137-145)
[2022-07-28 23:02] LABS: Platelet Estimate Adequate (Adequate)
[2022-07-28 23:03] LABS: Burr Cells 2+ (NORMAL); Macrocytosis 1+ (NORMAL); Schistocytes None Seen (NORMAL)
[2022-07-29] VITALS (14 sets, daily range): BP systolic 100–109; BP diastolic 46–60; PULSE 60–64; RESP 14–20; TEMP 36.3–36.6; O2SAT 98–99
[2022-07-29] MEDS: LEVOTHYROXINE SODIUM 75 MCG TABLET PO (05:33)
[2022-07-29] MEDS: SUCRALFATE 1 GM TABLET PO ×3 (06:04→16:59)
[2022-07-29 06:18] LABS: Basophils Absolute Auto 0.1 K/mm3 (0.0-0.1); Eosinophils Absolute Auto 0.2 K/mm3 (0-0.3); Eosinophils Percent Auto 3.4 % (0-4.4); Hematocrit 32.4 % (37.0-47.0); Hemoglobin 10.1 g/dL (12.0-15.0); Immature Granulocyte Absolute 0.03 K/mm3 (0.00-0.031); Immature Granulocyte Percent A 0.5 % (0-0.5); Immature Platelet Fraction Pct 10.8 % (0.9-11.2); Lymphocytes Absolute Auto 2.19 K/mm3 (0.9-3.2); Lymphocytes Percent Auto 37.5 % (18.3-44.2); Mean Corpuscular HGB Conc 31.2 g/dl (32-36); Mean Corpuscular Hemoglobin 35.1 pg (26-34); Mean Corpuscular Volume 112.5 fl (80-100); Mean Platelet Volume 13.3 fl (7.4-10.4); Monocytes Absolute Auto 0.7 K/mm3 (0.1-0.6); Monocytes Percent Auto 11.1 % (2.6-8.5); Neutrophils Absolute Auto 2.7 K/mm3 (1.3-6.7); Neutrophils Percent Auto 46.5 % (45.5-73.1); Platelet Count Result 197 k/mm3 (150-375); Red Blood Count 2.88 M/mm3 (4.2-5.4); Red Cell Distribution Width 16.6 % (11.5-14.5); White Blood Count 5.8 K/mm3 (4.5-10.0)
[2022-07-29 06:35] LABS: Alanine Aminotransferase 24 U/L (6-35); Albumin Level 2.6 g/dL (3.5-5.1); Alkaline Phosphatase 96 U/L (38-126); Anion Gap 5 mmol/L (8-16); Aspartate Amino Transferase 41 U/L (14-36); Bilirubin,Total 0.4 mg/dL (0.2-1.3); Blood Urea Nitrogen 13 mg/dL (7-17); Calcium 9.2 mg/dL (8.4-10.2); Carbon Dioxide 22 mmol/L (22-30); Chloride 111 mmol/L (98-107); Estimated CRCL calculation 36 ml/min; Estimated Glomerular Filt Rate 34; Glucose 87 mg/dL (65-110); Potassium 3.4 mmol/L (3.4-5.0); Sodium 138 mmol/L (137-145)
[2022-07-29] MEDS: FERROUS SULFATE 324 MG TABLET PO ×2 (08:51→16:59)
[2022-07-29] MEDS: buPROPion HCL SR (12 HR) 150 MG TAB PO (08:51)
[2022-07-29] MEDS: APIXABAN 5 MG TABLET PO ×2 (08:51→20:40)
[2022-07-29] MEDS: CALCIUM CARBONATE (OSCAL) 500 MG TABLET 1000 MG PO (08:52)
[2022-07-29] MEDS: GABAPENTIN 100 MG CAPSULE PO ×2 (08:52→16:59)
[2022-07-29] MEDS: FLUoxetine HCL 20 MG CAPSULE 40 MG PO (08:52)
[2022-07-29] MEDS: FOLIC ACID 1 MG TABLET PO (08:52)
[2022-07-29] MEDS: FUROSEMIDE 40 MG TABLET PO (08:52)
[2022-07-29] MEDS: CHOLECALCIFEROL 1,000 UNITS TABLET 1000 UNITS PO (08:52)
[2022-07-29] MEDS: CYANOCOBALAMIN 1,000 MCG TABLET 1000 MCG PO (08:52)
[2022-07-29] MEDS: MAGNESIUM OXIDE 400 MG TABLET PO (08:52)
[2022-07-29] MEDS: PANTOPRAZOLE 40 MG TABLET PO (08:52)
[2022-07-29] MEDS: SALIVA SUBSTITUTE COMBO RINSE 237 ML BOTTLE 15 ML PO ×4 (08:53→20:41)
[2022-07-29] MEDS: TOPIRAMATE 25 MG TABLET 50 MG PO ×2 (08:53→20:41)
[2022-07-29] MEDS: SACCHAROMYCES BOULARDII 250 MG CAPSULE PO ×2 (08:53→16:59)
--- NOTE | 2022-07-29 09:49 | ECG_ITS ---
Measurements Intervals [place] Rate: 60 P: 196 IN: 197 QRS: -22 QRSD: 115 T: 145 QT: 417 QTc: 417 Interpretive Statements ELECTRONIC ATRIAL PACEMAKER NONSPECIFIC ST-T WAVE ABNORMALITY COMPARED TO ECG 07/25/2022 14:04:51 ELECTRONIC ATRIAL PACING NWO PRESENT Electronically Signed On 07-29-2022 15:07:04 CDT by Nicko Merlos M.D.
[2022-07-29] MEDS: SACUBITRIL/VALSARTAN 24-26 MG TABLET 1 TAB PO ×2 (09:53→20:40)
[2022-07-29] MEDS: METOPROLOL SUCCINATE EXT REL 50 MG TABCR PO (09:53)
--- NOTE | 2022-07-29 10:55 | PM.IMPN ---
Progress Note: A&P Assessment and Plan (1) Hypotension: Code(s): I95.9 - Hypotension, unspecified Status: Acute Assessment and Plan: Discussed with Cardiology. It appears that she was inadvertently sent home last admission with more medication than was recommended. She should only be on Toprol, Lasix and Entresto. Medications adjusted. If she does well tonight, then will plan discharge tomorrow. (2) Chest pain: Code(s): R07.9 - Chest pain, unspecified Status: Acute Assessment and Plan: Patient denies chest pain. EKG showing nonspecific ST-T wave changes. Trop 0.2 and flat. Patient just had extensive cardiac workup including catheterization that was clean last month. Suspect CP related to GI etiology. Elevated Trop could be related to still declining values from about 2 weeks ago. Doubt Type II AL since no preceding incident to explain this. No additional cardiac workup planned (3) Elevated troponin: Code(s): R77.8 - Other specified abnormalities of plasma proteins Status: Acute Assessment and Plan: As above (4) Abdominal pain: Code(s): R10.9 - Unspecified abdominal pain Status: Acute Assessment and Plan: Patient denies abdominal pain. She has been having diarrhea requiring a fecal management system but diarrhea resolved. Fecal management system has been removed. She had a recent C diff infection that was treated. C diff here was negative. Follow (5) Atrial fibrillation: Code(s): I48.91 - Unspecified atrial fibrillation Status: Acute Assessment and Plan: Patient has chronic atrial fibrillation. She is on Eliquis. She is also on metoprolol for rate control. Diltiazem, sotalol stopped. Continue telemetry. (6) Heart failure with reduced ejection fraction: Code(s): I50.20 - Unspecified systolic (congestive) heart failure Status: Acute Assessment and Plan: Echo last month showing EF 15-20% felt to be NICMP. Appears compensated. Continue medical management as above. (7) Nonischemic cardiomyopathy: Code(s): I42.8 - Other cardiomyopathies Status: Acute Assessment and Plan: As above (8) Type 2 diabetes mellitus: Code(s): E11.9 - Type 2 diabetes mellitus without complications Status: Acute Assessment and Plan: A1c 4.9. The patient's blood glucose was reviewed on 07/29 Glucose not monitored. Not on home medications for diabetes. Plan DVT prophylaxis: Eliquis Code status: Full Diet: Heart healthy Subjective Date/time seen: 07/29/22 10:55 Interval history: 72yo female with CHF, DM and ELIESER here for chest pain. Midodrine given last night and Sotalol held. She slept okay last night. She did wear the mask last night. No n/v. No CP or SOB. Exam Narrative: AF 97.8 109/54 60 18 98% Gen - NARD Chest - right base crackles o/w clear. nml RR CV - RRR S1/S2. Telemetry showing NSR Abd - soft. obese. NT Ext - trace pedal edema (mostly in feet) Neuro - Alert and appropriate Psych - Nml mood and affect Skin - Warm and dry Objective Data Vital Signs Vital Signs: Vital Signs - 24 hr 07/28/22 11:02 07/28/22 12:00 07/28/22 15:26 Temperature 97.9 F 97.9 F Pulse Rate 65 63 61 Respiratory Rate 16 16 Blood Pressure 99/44 L 82/45 L Pulse Oximetry 100 100 Oxygen Delivery 07/28/22 16:00 07/28/22 18:18 07/28/22 20:40 Temperature 97.8 F 98.4 F Pulse Rate 62 64 66 Respiratory Rate 16 16 Blood Pressure 102/59 L 100/43 L Pulse Oximetry 99 98 Oxygen Delivery 07/28/22 23:09 07/28/22 23:00 07/28/22 22:00 Temperature 97.7 F Pulse Rate 65 65 65 Respiratory Rate 12 15 Blood Pressure 102/48 L Pulse Oximetry 99 97 Oxygen Delivery CPAP 07/28/22 21:20 07/29/22 02:00 07/28/22 20:03 Temperature 97.7 F Pulse Rate 64 66 Respiratory Rate 20 Blood Pressure 100/46 L Pulse Oximetry 99 Oxygen Delivery
--- NOTE | 2022-07-29 11:02 | PM.CNCAR ---
Assessment and Plan Assessment and plan (1) Nonischemic cardiomyopathy: Code(s): I42.8 - Other cardiomyopathies Status: Acute (2) Heart failure with reduced ejection fraction: Code(s): I50.20 - Unspecified systolic (congestive) heart failure Status: Acute (3) Atrial fibrillation: Code(s): I48.91 - Unspecified atrial fibrillation Status: Acute Plan Her troponins were mildly elevated this admission, however, patient has no signs/symptoms of ischemia. Troponins have remained flat as well. Recent cardiac cath from last month with NOCAD. Patient appears to be euvolemic. Would continue oral Lasix. As far as her cardiac meds, would recommend patient to be on: Eliquis 5mg BID Atorvastatin 40mg Entresto 24/26mg BID Lasix 40mg BID Toprol XL 50mg -- would increase this as tolerated for additional heart rate control if needed from her atrial fibrillation. Patient should not be on Diltiazem as this is contraindicated in patients with reduced ejection fraction. Do not resume Sotalol upon discharge. History of Present Illness History of Present Illness Consult date/time: 07/29/22 11:02 Requesting physician: Riya Rodriguez [facility] [employer] Consult reason: atrial fibrillation Reason For Visit: Chest Pain, Elevated Troponin Narrative: Patient is a 72-year-old female who is well known to me from her prior admission. Last admission, patient found with severely reduced LVEF, which was determined to be non-ischemic (likely stress cardiomyopathy). She had undergone CHELA and cardiac cath last hospitalization. Patient also with known atrial fibrillation, for which we were rate controlling. Patient presented this time on 07/25 for evaluation of chest pain and abdominal pain. Cardiology consulted today for evaluation of hypotension and recommendations on management of cardiac meds. Patient reports no symptoms to me this morning. Denies shortness of breath, chest pain, lower extremity edema. Denies palpitations. Telemetry shows patient is currenty in sinus rhythm. Review of Systems Review of Systems: All systems reviewed & are unremarkable except as noted in HPI and below (subjective) [facility] Past Medical History Medical History Bimalleolar fracture of right ankle Bipolar disorder Breast cancer Coronary artery disease Endocarditis Hypertension MRSA bacteremia Nonischemic cardiomyopathy Paroxysmal atrial fibrillation Type 2 diabetes mellitus Surgical History Surgical History History of bilateral mastectomy History of cardiac catheterization History of cholecystectomy History of hysterectomy History of permanent cardiac pacemaker placement Family History Family History Other Diabetes mellitus Hypertension Social History Social History Social History: Surrogate medical decision maker: alvaro Milligan. Code status: Do not resuscitate. 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nfirmed Type Saccharomyces boulardii 250 mg 250 mg PO BID 07/05/22 07/25/22 History capsule alprazolam 0.5 mg tablet 0.5 mg PO HS 07/05/22 07/25/22 History apixaban 5 mg tablet (Eliquis) 5 mg PO BID 07/05/22 07/25/22 History atorvastatin 40 mg tablet 40 mg PO HS 07/05/22 07/25/22 History bisacodyl 10 mg rectal suppository 10 mg RECTAL DAILY PRN Constipation 07/05/22 07/25/22 History bupropion HCl 150 mg tablet,12 hr 150 mg PO DAILY 07/05/22 07/25/22 History sustained-release calcium 600 mg capsule 1,200 mg PO DAILY 07/05/22 07/25/22 History cholecalciferol (v
--- NOTE | 2022-07-29 13:10 | WPDCDIQUERY2 ---
CDI Query Clarification Request Patient presented to the ED with chest pain, elevated troponin and admitted for evaluation. History of chronic atrial fibrillation, systolic heart failure, nonischemic cardiomyopathy with nonobstructing coronary arteries on cardiac cath in June 2022. Progress Note 07/27/22 noted elevated troponin - likely type 2 KS Progress Note 07/28/22 noted Suspect CP related to GI etiology. Elevated Trop could be related to still declining values from about 2 weeks ago. No additional cardiac workup planned Cardiology Consult 07/29/22 noted troponins were mildly elevated this admission, however, patient has no signs/symptoms of ischemia. Troponins have remained flat as well. Please clarify if Type 2 KS was ruled in or ruled out.
[2022-07-29] MEDS: ATORVASTATIN 40 MG TABLET PO (20:40)
[2022-07-29] MEDS: ALPRAZolam (*CRX) 0.5 MG TABLET PO (20:40)
[2022-07-29] MEDS: traZODone HCL 50 MG TABLET 100 MG PO (20:41)
[2022-07-30] VITALS (12 sets, daily range): BP systolic 92–109; BP diastolic 48–88; PULSE 63–68; RESP 18–20; TEMP 36.4–36.6; O2SAT 95–99
[2022-07-30] MEDS: LEVOTHYROXINE SODIUM 75 MCG TABLET PO (06:13)
[2022-07-30] MEDS: SUCRALFATE 1 GM TABLET PO ×3 (06:50→16:47)
[2022-07-30 07:02] LABS: Anion Gap 10 mmol/L (8-16); Blood Urea Nitrogen 12 mg/dL (7-17); Calcium 9.4 mg/dL (8.4-10.2); Carbon Dioxide 24 mmol/L (22-30); Chloride 108 mmol/L (98-107); Estimated CRCL calculation 36 ml/min; Estimated Glomerular Filt Rate 34; Glucose 85 mg/dL (65-110); Potassium 3.3 mmol/L (3.4-5.0); Sodium 142 mmol/L (137-145)
[2022-07-30] MEDS: CHOLECALCIFEROL 1,000 UNITS TABLET 1000 UNITS PO (08:34)
[2022-07-30] MEDS: SACUBITRIL/VALSARTAN 24-26 MG TABLET 1 TAB PO (08:34)
[2022-07-30] MEDS: buPROPion HCL SR (12 HR) 150 MG TAB PO (08:34)
[2022-07-30] MEDS: MAGNESIUM OXIDE 400 MG TABLET PO (08:34)
[2022-07-30] MEDS: APIXABAN 5 MG TABLET PO (08:34)
[2022-07-30] MEDS: SACCHAROMYCES BOULARDII 250 MG CAPSULE PO ×2 (08:34→16:46)
[2022-07-30] MEDS: CALCIUM CARBONATE (OSCAL) 500 MG TABLET 1000 MG PO (08:34)
[2022-07-30] MEDS: FERROUS SULFATE 324 MG TABLET PO ×2 (08:34→16:47)
[2022-07-30] MEDS: FLUoxetine HCL 20 MG CAPSULE 40 MG PO (08:35)
[2022-07-30] MEDS: FOLIC ACID 1 MG TABLET PO (08:35)
[2022-07-30] MEDS: CYANOCOBALAMIN 1,000 MCG TABLET 1000 MCG PO (08:35)
[2022-07-30] MEDS: PANTOPRAZOLE 40 MG TABLET PO (08:35)
[2022-07-30] MEDS: TOPIRAMATE 25 MG TABLET 50 MG PO (08:35)
[2022-07-30] MEDS: GABAPENTIN 100 MG CAPSULE PO ×2 (08:35→16:46)
[2022-07-30] MEDS: METOPROLOL SUCCINATE EXT REL 50 MG TABCR PO (08:35)
[2022-07-30] MEDS: SALIVA SUBSTITUTE COMBO RINSE 237 ML BOTTLE 15 ML PO ×3 (08:39→16:47)
[2022-07-30] MEDS: POTASSIUM CHLORIDE 20 MEQ TABLET PO (13:12)
--- NOTE | 2022-07-30 15:16 | PM.DS ---
DS: Admitting Diagnosis Discharge Date 07/30/22 Admitting Diagnosis Chest pain DS: Discharge Diagnosis Discharge Diagnosis (1) Hypotension: Code(s): I95.9 - Hypotension, unspecified Status: Acute (2) Chest pain: Code(s): R07.9 - Chest pain, unspecified Status: Acute (3) Elevated troponin: Code(s): R77.8 - Other specified abnormalities of plasma proteins Status: Acute (4) Abdominal pain: Code(s): R10.9 - Unspecified abdominal pain Status: Acute (5) Atrial fibrillation: Code(s): I48.91 - Unspecified atrial fibrillation Status: Acute (6) Heart failure with reduced ejection fraction: Code(s): I50.20 - Unspecified systolic (congestive) heart failure Status: Acute (7) Nonischemic cardiomyopathy: Code(s): I42.8 - Other cardiomyopathies Status: Acute (8) Type 2 diabetes mellitus: Code(s): E11.9 - Type 2 diabetes mellitus without complications Status: Acute DS: Summary Hospital Course Reason for hospitalization: 72yo female with CHF, DM and ELIESER here for chest pain. Please see H&P for details. Hospital Course: Patient presents with chest pain.? EKG showing nonspecific ST-T wave changes. Trop 0.2 and flat. Patient just had extensive cardiac workup including catheterization that was clean last month. Suspect chest pain related to GI etiology. Elevated Trop could be related to still declining values from about 2 weeks ago. Doubt Type II NH since no preceding incident to explain this. No additional cardiac workup planned. Cardiology was consulted and they did follow along. Patient was noted to be hypotensive. Discussed with Cardiology. It appears that she was inadvertently sent home last admission with Sotalol and Diltiazem that was not recommended. She should only be on Toprol, Lasix and Entresto. Medications adjusted but BP still soft. Metoprolol dose was decreased to 50mg and Lasix held. She remained asymptomatic. Patient also was having abdominal pain with diarrhea requiring a fecal management system. This resolved its own. She had recent C diff infection that was treated. C diff was negative here. Fecal management system was removed. Patient has paroxysmal AFib. She remained on Eliquis. She remained in normal sinus rhythm despite stopping the diltiazem and sotalol. We also decreased her metoprolol dose and she tolerated this well. Patient's blood pressure remained soft but she remained asymptomatic. Discussed with Cardiology felt patient could be discharged with close observation. She will continue Lasix p.r.n.. Continue the lower dose of metoprolol at this time. Patient overall did well and was able to be discharged back to the rehab on 07/30/2022. The above issues were discussed in detail with the patient. All questions were answered to her satisfaction Status at Discharge Cognitive/behavioral status at discharge: stable Time Spent with Patient Time attestation: Total time spent providing and/or coordinating discharge services: 35 minutes Exam Narrative: AF 97.6 96/60 63 18 95% ra? Gen - NARD Chest - lungs clear anteriorly, nml RR CV - RRR S1/S2.? Telemetry showing NSR Abd - soft. obese. NT Ext - trace pedal edema (mostly in feet) Neuro - Alert and appropriate Psych - Nml mood and affect Skin - Warm and dry DS: Data Data Completed and Pending Labs on day of discharge: Labs from last 24 hours 07/30/22 06:11 Sodium 142 Potassium 3.3 L Chloride 108 H Carbon Dioxide 24 Anion Gap 10 BUN 12 Creatinine 1.50 H Estim Creat Clear Calc 36 Estimated GFR 34 L Glucose 85 Calcium 9.4 Preliminary micro results at discharge 07/25/22 15:22 Blood Culture - Preliminary Blood 07/25/22 17:04 Blood Culture - Preliminary Blood Discharge Plan Discharge Attending physician on discharge: Mati Berry Consulting providers: Karen Moran Discharging Cli
[2022-07-30 16:24] LABS: EDCOVIDSCREEN Negative (Negative)
== END 2022-07-30 19:10 | DRG 313 ==
LOC: ANHED 17:06 → ANHIMU 17:14 → ANH2MED 07-26 21:16
PROVIDERS: Internal Medicine; Physician Assistant; Admitting Provider Hospitalist; Emergency Provider Emergency Medicine; Visit Provider Internal Medicine
DX: R07.9 Chest pain, unspecified (principal); I42.8 Other cardiomyopathies; I50.22 Chronic systolic (congestive) heart failure; I11.0 Hypertensive heart disease with heart failure; I48.0 Paroxysmal atrial fibrillation; T44.7X1A Poisoning by beta-adrenoreceptor antagonists, accidental (unintentional), initial encounter; I95.2 Hypotension due to drugs; I25.10 Atherosclerotic heart disease of native coronary artery without angina pectoris; I10 Essential (primary) hypertension; R77.8 Other specified abnormalities of plasma proteins; R10.9 Unspecified abdominal pain; R19.7 Diarrhea, unspecified; E11.9 Type 2 diabetes mellitus without complications; F31.9 Bipolar disorder, unspecified; Z20.822 Contact with and (suspected) exposure to COVID-19; Z85.3 Personal history of malignant neoplasm of breast; Z79.01 Long term (current) use of anticoagulants; Z90.49 Acquired absence of other specified parts of digestive tract; Z90.13 Acquired absence of bilateral breasts and nipples; Z95.0 Presence of cardiac pacemaker
CPT/HCPCS: 36415; 71045; 74176; 80048; 80053; 81001; 82948; 83605; 83690; 83735; 84132; 84484; 85025; 85055; 85610; 85730; 87040; 87086; 87088; 87426; 87493; 93005; 96365; 99285; A9270; C9803; G0378; J0131; J7030; U0003; U0005

== ENCOUNTER 2022-08-01 12:18 | Inpatient (IN) | payer MEDICARE, MEDICAID, SELFPAY ==
[2022-08-01] VITALS (45 sets, daily range): BP systolic 41–113; BP diastolic 27–82; PULSE 67–128; RESP 0–26; TEMP 36.7–36.8; O2SAT 94–100
--- NOTE | ~2022-08-01 | CT_ITS ---
EXAMINATION: CT abdomen pelvis wo con DATE: 08/02/2022 12:50 INDICATION: Upper abdominal pain. TECHNIQUE: Computed tomography (CT) of the abdomen and pelvis was performed without intravenous contr ast. Automated exposure control and iterative reconstruction technique were employed. The dose-length product was 1493.02 mGy-cm. COMPARISON: CT abdomen and pelvis 07/25/2022, ultrasound kidneys 07/08/2022 FINDINGS: The visualized portions of the lung bases demonstrate mild atelectasis. There are small ple ural effusions. Calcified pulmonary nodules are consistent with old granulomas disc disease. The hear t size is normal. There are coronary artery calcifications. There are pacer wires in right atrium and right ventricle. No pericardial effusion. The liver is normal. There are changes of cholecystectomy. The spleen, pancreas, and adrenal glands are normal. There are parenchymal calcifications in right k idney. There is a 2 mm stone in right kidney. There is a 10 mm mass of right kidney upper pole measur ing soft tissue attenuation. There are 4 stones in left kidney measuring up to 3 mm. There is a filte r in the inferior vena cava. There is diverticulosis of the colon without evidence of diverticulitis. There are no dilated loops of bowel. The appendix is nonvisualized. There are no pathologically enla rged lymph nodes. There is no free intraperitoneal fluid. There is an umbilical hernia containing fat . There are small masses in the subcutaneous fat in anterior abdominal wall, likely injection sites. There is mild thoracolumbar spondylosis. IMPRESSION: 1. Small pleural effusions. 2. 10 mm right kidney mass, which may be a hemorrhagic cyst or less likely a neoplasm. Abdomen CT wit hout and with contrast is recommended. 3. Small bilateral nonobstructing kidney stones. 4. Umbilical hernia containing fat. Reviewed, dictated and finalized at location B. IMPRESSION: 1. Small pleural effusions. 2. 10 mm right kidney mass, which may be a hemorrhagic cyst or less likely a ne oplasm. Abdomen CT without and with contrast is recommended. 3. Small bilateral nonobstructing kidney stones. 4. Umbilical hernia containing fat.
--- NOTE | ~2022-08-01 | XR_ITS ---
EXAMINATION: XR chest 1V portable DATE: 08/01/2022 13:03 INDICATION: Chest pain TECHNIQUE: frontal view of the chest was obtained. COMPARISON: Chest radiograph dated 07/25/2022 FINDINGS: The lungs remain clear with no focal airspace opacities, pulmonary edema, pleural effusion or pneumot horax. The cardiomediastinal silhouette is normal. Dual lead pacemaker seen with leads projecting ove r the expected locations of the right atrium and right ventricle. Cholecystectomy clips in right uppe r quadrant. IMPRESSION: 1. No acute cardiopulmonary disease. Reviewed, dictated and finalized at location A.
--- NOTE | ~2022-08-01 | CT_ITS ---
EXAMINATION: CT abdomen wo/w con DATE: 08/03/2022 10:05 INDICATION: Right kidney mass. TECHNIQUE: Computed tomography (CT) of the abdomen was performed without and with 100 mL Omnipaque 35 0 intravenous contrast. Automated exposure control and iterative reconstruction technique were employ ed. The dose-length product was 2366.35 mGy-cm. COMPARISON: CT abdomen and pelvis 08/02/2022 FINDINGS: The visualized portions of the lung bases demonstrate mild atelectasis. There are small ple ural effusions. The heart size is normal. There are pacer wires in right atrium and right ventricle. No pericardial effusion. There is periportal edema in the liver. There are changes of cholecystectomy . The spleen, pancreas, and adrenal glands are normal. There is a parenchymal calcification in right kidney. There is a 2 mm stone in right kidney. There is a 7 mm stone or cluster of stones in left kid [place]. There is a 10 mm hemorrhagic cyst in right kidney and there are no dilated loops of bowel. The a ppendix is not visualized. There is a filter in the inferior vena cava. There are no pathologically e nlarged lymph nodes. There is an umbilical hernia containing fat. There is diffuse bladder wall thick ening. There is mild thoracolumbar spondylosis. IMPRESSION: 1. 10 mm hemorrhagic cyst in right kidney. 2. Small pleural effusions. 3. Bilateral nonobstructing kidney stones. 4. Umbilical hernia containing fat. Reviewed, dictated and finalized at location B.
--- NOTE | 2022-08-01 12:33 | ED.CHESTPAIN ---
HPI - Chest Pain General Chief Complaint: Chest Pain Stated Complaint: cp Time Seen by Provider: 08/01/22 12:33 Source: patient, family and EMS Mode of arrival: EMS Limitations: no limitations History of Present Illness HPI narrative: 72 years old white female, came from shelter by ambulance because of sudden onset of central chest pain radiating to the right armpit and right upper extremity started at 1030 this morning while laying down in bed. 8 out of 10, currently 5 out of 10. Patient reported history of chronic diarrhea on average at least 5 times a day, history of C. difficile, history of diarrhea even before having see the of unknown etiology. Patient had COVID infection May 2022 subsequently developed MRSA and her health has been declining since. Patient is bed ridden since May 07. Patient is DNR. History of diabetes, hypertension, hyperlipidemia, atrial fibrillation, on Eliquis, pacemaker Patient's daughter is telling me that patient blood pressure usually runs all the time at 90/50 and today looks much better than ever. Related Data Home Medications Medication Instructions Recorded Confirmed Saccharomyces boulardii 250 mg 250 mg PO BID 07/05/22 07/25/22 capsule atorvastatin 40 mg tablet 40 mg PO HS 07/05/22 07/25/22 bisacodyl 10 mg rectal suppository 10 mg RECTAL DAILY PRN Constipation 07/05/22 07/25/22 bupropion HCl 150 mg tablet,12 hr 150 mg PO DAILY 07/05/22 07/25/22 sustained-release calcium 600 mg capsule 1,200 mg PO DAILY 07/05/22 07/25/22 cholecalciferol (vitamin D3) 25 25 mcg PO DAILY 07/05/22 07/25/22 mcg (1,000 unit) tablet cyanocobalamin (vitamin B-12) 1,000 mcg PO DAILY 07/05/22 07/25/22 1,000 mcg tablet ferrous sulfate 325 mg (65 mg 325 mg PO BID 07/05/22 07/25/22 iron) tablet fluoxetine 20 mg capsule 40 mg PO DAILY 07/05/22 07/25/22 folic acid 1 mg tablet 1 mg PO DAILY 07/05/22 07/25/22 gabapentin 100 mg capsule 100 mg PO BID 07/05/22 07/25/22 levothyroxine 75 mcg tablet 75 mcg PO DAILY 07/05/22 07/25/22 magnesium oxide 400 mg PO DAILY 07/05/22 07/25/22 sucralfate 1 gram tablet 1 g PO TID 07/05/22 07/25/22 topiramate 50 mg tablet 50 mg PO BID 07/05/22 07/25/22 trazodone 100 mg tablet 100 mg PO HS 07/05/22 07/25/22 omeprazole 20 mg capsule,delayed 20 mg PO DAILY 07/25/22 07/25/22 release Allergies Allergy/AdvReac Type Severity Reaction Status Date / Time Penicillins Allergy Intermediate Swelling Verified 07/25/22 13:55 Review of Systems Review of Systems: All systems reviewed & are unremarkable except as noted in HPI and below PMFSH Past Medical History Medical History Bimalleolar fracture of right ankle Bipolar disorder Breast cancer Coronary artery disease Endocarditis Hypertension MRSA bacteremia Nonischemic cardiomyopathy Paroxysmal atrial fibrillation Type 2 diabetes mellitus Surgical History Surgical History History of bilateral mastectomy History of cardiac catheterization History of cholecystectomy History of hysterectomy History of permanent cardiac pacemaker placement Family History Family History Other Diabetes mellitus Hypertension Social History Social History Social History: Surrogate medical decision maker: alvaro Milligan. Code status: Do not resuscitate. Smoking status: Never smoker Alcohol intake: never Substance use: never Substance use type: does not use Additional occupation/education comments: Seamstress. Spiritual care concerns: No Exam Narrative: General appearance: Well-developed, well-nourished, morbid obesity, ill looking Skin: Normal color Head: Normocephalic, nontraumatic Eyes: Clear conjunctiva ENT: Oropharynx normal, ears normal, nose normal Neck: Supple, nontender Chest and respiratory
--- NOTE | 2022-08-01 12:35 | ECG_ITS ---
Measurements Intervals [place] Rate: 119 P: MS: 0 QRS: 206 QRSD: 101 T: 62 QT: 265 QTc: 373 Interpretive Statements ATRIAL FIBRILLATION WITH RAPID VENTRICULAR RESPONSE BASELINE ARTIFACT POSSIBLE RIGHT VENTRICULAR HYPERTROPHY LIMB LEAD MISPLACEMENT ABNORMAL ECG COMPARED TO ECG 07/29/2022 12:18:54 ATRIAL FIBRILLATION NOW PRESENT Electronically Signed On 08-01-2022 15:50:18 CDT by Joshua Andrew M.D.
--- NOTE | 2022-08-01 14:17 | PC.NURSE ---
Paige Called lab Sheila Thomason stated she will draw labs due to difficult to stick.
[2022-08-01] MEDS: dilTIAZem HCl INJ 25 MG/5 ML VIAL 10 MG IV PUSH (14:25)
[2022-08-01] MEDS: SODIUM CHLORIDE 0.9% IV 1,000 ML 999 ML IV CONT (14:44)
[2022-08-01 15:07] LABS: Basophils Absolute Auto 0.1 K/mm3 (0.0-0.1); Basophils Percent Auto 1.3 % (0.2-1.2); Eosinophils Absolute Auto 0.3 K/mm3 (0-0.3); Eosinophils Percent Auto 5.2 % (0-4.4); Hematocrit 32.8 % (37.0-47.0); Hemoglobin 10.7 g/dL (12.0-15.0); Immature Granulocyte Absolute 0.01 K/mm3 (0.00-0.031); Immature Granulocyte Percent A 0.2 % (0-0.5); Immature Platelet Fraction Pct 8.1 % (0.9-11.2); Lymphocytes Absolute Auto 1.61 K/mm3 (0.9-3.2); Mean Corpuscular HGB Conc 32.6 g/dl (32-36); Mean Corpuscular Hemoglobin 35.4 pg (26-34); Mean Corpuscular Volume 108.6 fl (80-100); Mean Platelet Volume 13.4 fl (7.4-10.4); Monocytes Absolute Auto 0.6 K/mm3 (0.1-0.6); Neutrophils Absolute Auto 2.8 K/mm3 (1.3-6.7); Neutrophils Percent Auto 52.3 % (45.5-73.1); Nucleated Red Blood Cells Perc 0.4 % (0.0-0.2); Platelet Count Result 206 k/mm3 (150-375); Red Blood Count 3.02 M/mm3 (4.2-5.4); Red Cell Distribution Width 16.3 % (11.5-14.5); White Blood Count 5.4 K/mm3 (4.5-10.0)
[2022-08-01 15:16] LABS: Alanine Aminotransferase 27 U/L (6-35); Albumin Level 2.6 g/dL (3.5-5.1); Alkaline Phosphatase 92 U/L (38-126); Anion Gap 5 mmol/L (8-16); Aspartate Amino Transferase 48 U/L (14-36); Bilirubin,Total 0.4 mg/dL (0.2-1.3); Blood Urea Nitrogen 11 mg/dL (7-17); Calcium 8.7 mg/dL (8.4-10.2); Carbon Dioxide 23 mmol/L (22-30); Chloride 112 mmol/L (98-107); Estimated CRCL calculation 45 ml/min; Estimated Glomerular Filt Rate 44; Glucose 104 mg/dL (65-110); Lipase 135 U/L (23-300); Potassium 3.4 mmol/L (3.4-5.0); Sodium 140 mmol/L (137-145)
[2022-08-01 15:56] LABS: Anisocytosis 2+ (NORMAL); Platelet Estimate Adequate (Adequate); Schistocytes None Seen (NORMAL)
[2022-08-01 16:04] LABS: INR 1.3; Partial Thromboplastin Time 31.5 SECONDS (22.3-36.8)
[2022-08-01 16:25] LABS: Troponin I 0.199 ng/mL (0.000-0.034)
--- NOTE | 2022-08-01 17:30 | PM.IMHP ---
H&P: HPI History of Present Illness Date/Time: 08/01/22 17:30 Chief Complaint: Chest pain. Narrative: This is a 72-year-old female with paroxysmal atrial fibrillation, type 2 diabetes mellitus hypertension, nonischemic cardiomyopathy with nonobstructing coronary arteries on cardiac catheterization in June 2022, and several other comorbidities who presented to the ED via EMS from [facility] for evaluation of chest pain. She is well known to the hospitalist service and this will be her 3rd admission to the hospital in the last 1 month. She was initially admitted on 07/04/2022 with sepsis, Staphylococcus capitis bacteremia, parotiditis, and C diff. she was readmitted on 07/25/2022 for an elevated troponin after presenting with chest pain though it seemed to be more localized to the abdomen. Her workup was relatively unremarkable and troponins remained flat; it is noted that a cardiac catheterization last month showed no obstructing coronary artery disease with findings of nonischemic cardiomyopathy. She was discharged back to the nursing facility on 07/30/2022 and she has visited daily by either her or daughter. Throughout the weekend she has seemed to be her usual self however this afternoon while her daughter was visiting the patient suddenly cried out with severe right-sided chest pain and she was brought into the emergency department. Her troponins were once again elevated but they have remained flat and are stable when compared to previous lab draws. Her chest pain is reproducible on exam and she was going to be discharged back to the nursing facility however she is now being admitted due to continued soft blood pressures and atrial fibrillation with rapid ventricular response. She has no symptoms of the rapid heart rate or the soft blood pressures. She has been bed-bound since April of this year and she denies feelings of syncope and presyncope. Her blood pressures have been soft since she was started on Entresto last month for her reduced EF of 15 to 20% and several of her antihypertensives have since been discontinued. She remains on metoprolol at a lower dose for rate control. Review of Systems Review of Systems: Twelve systems were reviewed. No fever, chills, or sweats. She is not currently having any chest pain at this time. Chest pain is reproducible as detailed above. Her appetite has been poor for several months and she states food just does not sound good or taste good anymore. She gets full quite quickly as well. No dysphagia, daughter reports that she has passed swallow studies recently. No vomiting. No diarrhea. Except as documented, all other systems were reviewed and are negative. [facility] Past Medical History Medical History (Updated 08/01/22 @ 22:48 by Dedra Devlin PA-C) Bimalleolar fracture of right ankle Bipolar disorder Breast cancer Chronic anemia Chronic kidney disease Coronary artery disease Endocarditis Hypertension MRSA bacteremia Nonischemic cardiomyopathy Paroxysmal atrial fibrillation Type 2 diabetes mellitus Surgical History Surgical History History of bilateral mastectomy History of cardiac catheterization History of cholecystectomy History of hysterectomy History of permanent cardiac pacemaker placement Family History Family History Other Diabetes mellitus Hypertension Social History Social History Social History: Surrogate medical decision maker: alvaro Milligan. Code status: Do not resuscitate. 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
[2022-08-01 17:40] LABS: SARS-CoV-2 RNA PCR Negative
[2022-08-01 19:52] LABS: Troponin I 0.186 ng/mL (0.000-0.034)
--- NOTE | 2022-08-01 21:14 | ECG_ITS ---
Measurements Intervals [employer] Rate: 78 P: 91 WA: 161 QRS: -9 QRSD: 121 T: 152 QT: 390 QTc: 445 Interpretive Statements SINUS RHYTHM MODERATE INTRAVENTRICULAR CONDUCTION DELAY [110+ ms QRS DURATION] ST DEVIATION AND MODERATE T-WAVE ABNORMALITY, CONSIDER ANTERIOR ISCHEMIA [-0.1+ mV T WAVE IN V3/V4] ABNORMAL EKG COMPARED TO ECG 08/01/2022 12:36:05 SINUS RHYTHM NOW PRESENT INTRAVENTRICULAR CONDUCTION DELAY NOW PRESENT Electronically Signed On 08-02-2022 9:27:48 CDT by Jered Chaparro M.D.
[2022-08-01] MEDS: TOLNAFTATE 1% POWDER 45 GM BTL 1 APPLIC TOPICAL (23:18)
--- NOTE | 2022-08-01 23:38 | ADMGEN ---
This patient, Kenya Oropeza, was admitted to IMU Room 205-02 on 08/01/22 at 1900. Patient/family oriented to hospital policies and general routines including ID bracelet, bed and alarms, visiting hours, pain management, procedures, bathroom and other care routines, personal items, smoking policy, room service/diet, and visiting hours. Information on how to activate the Rapid Response Team has been discussed. Patient/Family are encouraged to report perceived risks to care and to ask questions if they do not understand what they are told or what they should do.
[2022-08-02] VITALS (15 sets, daily range): BP systolic 96–118; BP diastolic 52–87; PULSE 12–78; RESP 16–99; TEMP 36.3–37.1; O2SAT 96–100; BMI 39.7
--- NOTE | 2022-08-02 06:00 | ECG_ITS ---
Measurements Intervals [place] Rate: 70 P: 80 CT: 155 QRS: -12 QRSD: 114 T: 148 QT: 384 QTc: 415 Interpretive Statements SINUS RHYTHM MODERATE INTRAVENTRICULAR CONDUCTION DELAY [110+ ms QRS DURATION] NONSPECIFIC T-WAVE ABNORMALITY COMPARED TO ECG 08/01/2022 21:22:12 NO SIGNIFICANT CHANGES Electronically Signed On 08-02-2022 13:53:54 CDT by Luis Mccormick M.D.
[2022-08-02] MEDS: ASPIRIN 81 MG CHEWABLE TABLET PO (09:42)
[2022-08-02] MEDS: TOLNAFTATE 1% POWDER 45 GM BTL 1 APPLIC TOPICAL ×2 (09:42→20:32)
--- NOTE | 2022-08-02 10:20 | PM.IMPN ---
Progress Note: A&P Assessment and Plan (1) Chest pain: Code(s): R07.9 - Chest pain, unspecified Status: Acute Assessment and Plan: Patient again presents with chest pain. Chest x-ray is clear. Troponins elevated but are essentially trending downward since last admission. Patient had a recent normal left heart catheterization last month making coronary disease extremely unlikely. Unclear if this is acid reflux related. Consider anxiety. Gallbladder is absent so consider also gastritis. Consider also ischemia from hypotension or from AFib/RVR. But blood pressure normal and in NSR currently and patient again complaining of chest pain making this less likely. Cardiology has been consulted. (2) Hypotension: Code(s): I95.9 - Hypotension, unspecified Status: Acute Assessment and Plan: Patient's blood pressure was soft in the emergency room. He had AFib with RVR and was treated with diltiazem which contributed to her low blood pressure. Dilaudid was ordered but appears that was not given. Antihypertensive medications are on hold. Discussed with Cardiology and medications will be adjusted. (3) Elevated troponin: Code(s): R77.8 - Other specified abnormalities of plasma proteins Status: Acute Assessment and Plan: As above. Elevated troponins noted but are still trending downward from last admission. Suspect a slight rise was related to the hypotension and AFib/RVR. medications to be adjusted. (4) Abdominal pain: Code(s): R10.9 - Unspecified abdominal pain Status: Acute Assessment and Plan: Patient with persistent abdominal pain. She is currently on omeprazole and Carafate. Abdominal pain could be related to her medications. CT of the abdomen pelvis on 07/25/2022 did show mild distal sigmoid and rectal wall edema but her pain is clearly in the upper abdomen. Will resume her home medications. Will continue to follow. We will repeat CT of the abdomen pelvis. (5) Atrial fibrillation with rapid ventricular response: Code(s): I48.91 - Unspecified atrial fibrillation Status: Acute Assessment and Plan: Patient was in AFib RVR which could have been contributing to her chest pain. She was on diltiazem and metoprolol and sotalol last admission. Medications were simplified to just metoprolol. We had a cut the metoprolol dose back to 50 mg daily due to soft blood pressure. Will resume metoprolol 50 mg and hold Entresto. Discussed. (6) Nonischemic cardiomyopathy: Code(s): I42.8 - Other cardiomyopathies Status: Acute Assessment and Plan: As above. Minimize medications to improve her blood pressure. May need to switch to losartan from the Entresto. (7) Heart failure with reduced ejection fraction: Code(s): I50.20 - Unspecified systolic (congestive) heart failure Status: Acute Assessment and Plan: As above (8) Type 2 diabetes mellitus: Code(s): E11.9 - Type 2 diabetes mellitus without complications Status: Acute Assessment and Plan: A1c 4.9. Diet controlled. Subjective Date/time seen: 08/02/22 10:20 Interval history: 72yo female with CHF, DM and ELISEER here for chest pain and found to have soft BP. Patietn alert but confused. She is having CP again this morning radiating to under her right arm. She denies n/v or SOB. No sour taste or acid reflux symptoms. History suspect given her confusion. Review of Systems Review of Systems: ROS unobtainable: Yes unobtainable due to mental status (Patient is alert but confused so history is questionable.) Exam Narrative: AF 98.7 109/52 12 99% ra Gen - NARD lying semi recumbent in bed. Chest - CTA bilaterally, nml RR CV - RRR S1/S2.? Telemetry showing no significant dysrhythmias; currently in normal sinus rhythm Abd - soft. obese, mild RUQ and epigastric pain Ext - trace pedal edema (mostly in feet) Neuro -
--- NOTE | 2022-08-02 10:41 | PM.CNCAR ---
Assessment and Plan Assessment and plan (1) Atrial fibrillation with rapid ventricular response: Code(s): I48.91 - Unspecified atrial fibrillation Status: Acute (2) Chronic kidney disease: Code(s): N18.9 - Chronic kidney disease, unspecified Status: Acute (3) Elevated troponin: Code(s): R77.8 - Other specified abnormalities of plasma proteins Status: Acute (4) Musculoskeletal chest pain: Code(s): R07.89 - Other chest pain Status: Acute (5) Cardiomyopathy: Code(s): I42.9 - Cardiomyopathy, unspecified Status: Acute Plan Patient's right sided chest pain does have a reproducibility component suggesting a musculoskeletal component. Troponins are flat and ECG without ishcemic changes. No signs / symptoms of ischemia. Patient had a recent cardiac cath that was NOD. Continue Eliquis. Given recurrent concerns for low blood pressure - would stop Entresto and have patient on low-dose Losartan instead. Patient currently rate controlled - continue with Metoprolol - would uptitrate as needed for additional rate control. History of Present Illness History of Present Illness Consult date/time: 08/02/22 10:41 Requesting physician: Bin Carrillo MD Consult reason: chest pain, atrial fibrillation and known to you Reason For Visit: N STEMI, A FIB w/RVR Narrative: Patient is a 72-year-old patient with a history of non-ischemic cardiomyopathy (likely stress cardiomyopathy) and atrial fibrillation who is well known to us. Patient was recently discharged from here. Patient reported chest pain at her assisted, therefore, brought to the ED for further evaluation. Patient has been having chronic diarrhea as well. Patient was noted to be in AFIB with RVR with HR in the 119 on EKG. Given Diltiazem in the ER. Was given Dilauded around the same time. BP in the ED 69 systolic, was previously in the 80s. Patient reports that her pain is mostly right anterior chest. Not pleuritic. Not clearly associated with exertion. Does have a reproducibility component to it. No shortness of breath. Troponins are flat. Review of Systems Review of Systems: All systems reviewed & are unremarkable except as noted in HPI and below (subjective) [facility] Past Medical History Medical History Bimalleolar fracture of right ankle Bipolar disorder Breast cancer Chronic anemia Chronic kidney disease Coronary artery disease Endocarditis Hypertension MRSA bacteremia Nonischemic cardiomyopathy Paroxysmal atrial fibrillation Type 2 diabetes mellitus Surgical History Surgical History History of bilateral mastectomy History of cardiac catheterization History of cholecystectomy History of hysterectomy History of permanent cardiac pacemaker placement Family History Family History Other Diabetes mellitus Hypertension Social History Social History Social History: Surrogate medical decision maker: alvaro Milligan. Code status: Do not resuscitate. 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nfirmed Type Saccharomyces boulardii 250 mg 250 mg PO BID 07/05/22 08/01/22 History capsule atorvastatin 40 mg tablet 40 mg PO HS 07/05/22 08/01/22 History bisacodyl 10 mg rectal suppository 10 mg RECTAL DAILY PRN Constipation 07/05/22 08/01/22 History bupropion HCl 150 mg tablet,12 hr 150 mg PO DAILY 07/05/22 08/01/22 History sustained-release calcium 600 mg capsule 600 mg PO DAILY 07/05/22 08/01/22 History cholecalciferol (vitamin D3) 25 25 mcg PO LEA
[2022-08-02] MEDS: SALIVA SUBSTITUTE RINSE 473 ML BOTTLE 15 ML PO ×3 (13:00→20:32)
[2022-08-02] MEDS: METOPROLOL SUCCINATE EXT REL 50 MG TABCR PO (13:00)
[2022-08-02] MEDS: SUCRALFATE 1 GM TABLET PO ×2 (13:00→17:20)
[2022-08-02] MEDS: buPROPion HCL SR (12 HR) 150 MG TAB PO (13:01)
[2022-08-02] MEDS: APIXABAN 5 MG TABLET PO ×2 (13:02→20:31)
[2022-08-02] MEDS: FLUoxetine HCL 20 MG CAPSULE 40 MG PO (13:02)
[2022-08-02] MEDS: FOLIC ACID 1 MG TABLET PO (13:02)
[2022-08-02] MEDS: TOPIRAMATE 25 MG TABLET 50 MG PO (17:20)
[2022-08-02] MEDS: SACCHAROMYCES BOULARDII 250 MG CAPSULE PO (17:22)
[2022-08-02] MEDS: GABAPENTIN 100 MG CAPSULE PO (17:23)
[2022-08-02] MEDS: traZODone HCL 50 MG TABLET 100 MG PO (20:31)
[2022-08-02] MEDS: ATORVASTATIN 40 MG TABLET PO (20:31)
[2022-08-02] MEDS: PANTOPRAZOLE 40 MG TABLET PO (20:31)
[2022-08-02] MEDS: ALPRAZolam (*CRX) 0.5 MG TABLET PO (20:37)
[2022-08-03] VITALS (12 sets, daily range): BP systolic 111–120; BP diastolic 46–76; PULSE 69–131; RESP 10–22; TEMP 36.4–36.7; O2SAT 97–100
[2022-08-03] MEDS: ACETAMINOPHEN 325 MG TABLET 650 MG PO ×2 (01:37→07:53)
[2022-08-03 04:53] LABS: Hematocrit 29.6 % (37.0-47.0); Hemoglobin 9.4 g/dL (12.0-15.0); Mean Corpuscular HGB Conc 31.8 g/dl (32-36); Mean Corpuscular Hemoglobin 35.5 pg (26-34); Mean Corpuscular Volume 111.7 fl (80-100); Platelet Count Result 208 k/mm3 (150-375); Red Blood Count 2.65 M/mm3 (4.2-5.4); Red Cell Distribution Width 16.4 % (11.5-14.5); White Blood Count 4.9 K/mm3 (4.5-10.0)
[2022-08-03 05:06] LABS: Alanine Aminotransferase 27 U/L (6-35); Albumin Level 2.4 g/dL (3.5-5.1); Alkaline Phosphatase 61 U/L (38-126); Anion Gap 7 mmol/L (8-16); Aspartate Amino Transferase 47 U/L (14-36); Bilirubin,Total 0.5 mg/dL (0.2-1.3); Blood Urea Nitrogen 11 mg/dL (7-17); Calcium 8.2 mg/dL (8.4-10.2); Carbon Dioxide 20 mmol/L (22-30); Chloride 112 mmol/L (98-107); Estimated CRCL calculation 49 ml/min; Estimated Glomerular Filt Rate 49; Glucose 72 mg/dL (65-110); Lipase 169 U/L (23-300); Potassium 3.8 mmol/L (3.4-5.0); Sodium 139 mmol/L (137-145)
[2022-08-03 05:37] LABS: Cortisol Random 6.24 ug/dL
[2022-08-03] MEDS: LEVOTHYROXINE SODIUM 75 MCG TABLET PO (05:38)
[2022-08-03] MEDS: GABAPENTIN 100 MG CAPSULE PO ×2 (08:14→17:23)
[2022-08-03] MEDS: FLUoxetine HCL 20 MG CAPSULE 40 MG PO (08:14)
[2022-08-03] MEDS: APIXABAN 5 MG TABLET PO (08:14)
[2022-08-03] MEDS: METOPROLOL SUCCINATE EXT REL 50 MG TABCR PO (08:14)
[2022-08-03] MEDS: SUCRALFATE 1 GM TABLET PO ×3 (08:15→17:23)
[2022-08-03] MEDS: TOPIRAMATE 25 MG TABLET 50 MG PO ×2 (08:15→17:24)
[2022-08-03] MEDS: CYANOCOBALAMIN 1,000 MCG TABLET 1000 MCG PO (08:15)
[2022-08-03] MEDS: FOLIC ACID 1 MG TABLET PO (08:15)
[2022-08-03] MEDS: SALIVA SUBSTITUTE RINSE 473 ML BOTTLE 15 ML PO ×3 (08:15→17:23)
[2022-08-03] MEDS: ASPIRIN 81 MG CHEWABLE TABLET PO (08:15)
[2022-08-03] MEDS: MAGNESIUM OXIDE 400 MG TABLET PO (08:15)
[2022-08-03] MEDS: SACCHAROMYCES BOULARDII 250 MG CAPSULE PO ×2 (08:15→17:23)
[2022-08-03] MEDS: CALCIUM CARBONATE (OSCAL) 500 MG TABLET PO (08:15)
[2022-08-03] MEDS: TOLNAFTATE 1% POWDER 45 GM BTL 1 APPLIC TOPICAL (08:15)
[2022-08-03] MEDS: CHOLECALCIFEROL 1,000 UNITS TABLET 1000 UNITS PO (08:15)
[2022-08-03] MEDS: buPROPion HCL SR (12 HR) 150 MG TAB PO (08:16)
--- NOTE | 2022-08-03 11:00 | PM.PNCARD ---
Progress Note: A&P Assessment and Plan (1) Atrial fibrillation with rapid ventricular response: Code(s): I48.91 - Unspecified atrial fibrillation Status: Acute (2) Cardiomyopathy: Code(s): I42.9 - Cardiomyopathy, unspecified Status: Acute Plan Patient's right sided chest pain does have a reproducibility component suggesting a musculoskeletal component. Troponins are flat and ECG without ishcemic changes. No signs / symptoms of ischemia. Patient had a recent cardiac cath that was NOD. Continue Eliquis. Given recurrent concerns for low blood pressure - would stop Entresto and have patient on low-dose Losartan instead. Entresto stopped yesterday, low-dose Losartan started today. BP acceptable. Patient currently rate controlled - continue with Metoprolol - would uptitrate as needed for additional rate control. Subjective Date/time seen: 08/03/22 11:00 Interval history: Reason for follow up: AFIB No acute events overnight. Remains in sinus rhythm this morning. No AFIB overnight. Review of Systems Review of Systems: All systems reviewed & are unremarkable except as noted in HPI and below (subjective) Exam Const: General: comfortable and no acute distress Resp: Effort & Inspection: normal respiratory effort Auscultation: diminished lung sounds Cardio: Rate: regular rate Rhythm: regular rhythm Heart sounds: no murmurs GI: GI Palp: Yes Soft to palpation and No Tenderness to palpation present (GI) Skin: General skin exam: normal color Neuro: Speech: normal speech Psych: Mental Status: mental status grossly normal Objective Data Vital Signs Vital Signs: Vital Signs - 24 hr 08/02/22 12:31 08/02/22 13:00 08/02/22 12:00 Temperature 37.1 C Pulse Rate 68 76 66 Respiratory Rate 18 Blood Pressure 97/69 L Pulse Oximetry 100 Oxygen Delivery 08/02/22 14:00 08/02/22 12:00 08/02/22 16:00 Temperature 36.3 C L Pulse Rate 74 73 Respiratory Rate 16 Blood Pressure 118/87 Pulse Oximetry 100 Oxygen Delivery Room Air 08/02/22 16:00 08/02/22 16:00 08/02/22 18:00 Temperature Pulse Rate 78 75 Respiratory Rate Blood Pressure Pulse Oximetry Oxygen Delivery Room Air 08/02/22 20:00 08/02/22 20:00 08/02/22 20:00 Temperature 36.6 C Pulse Rate 70 72 Respiratory Rate 20 Blood Pressure 113/64 Pulse Oximetry 97 Oxygen Delivery Room Air 08/02/22 22:00 08/02/22 23:47 08/03/22 00:00 Temperature 36.4 C Pulse Rate 70 77 71 Respiratory Rate 20 Blood Pressure 109/64 Pulse Oximetry 97 Oxygen Delivery 08/03/22 00:00 08/03/22 02:00 08/03/22 04:00 Temperature Pulse Rate 75 73 Respiratory Rate Blood Pressure Pulse Oximetry Oxygen Delivery Room Air 08/03/22 04:00 08/03/22 04:00 08/03/22 06:00 Temperature 36.4 C Pulse Rate 76 71 Respiratory Rate 18 Blood Pressure 111/59 L Pulse Oximetry 97 Oxygen Delivery Room Air 08/03/22 08:14 08/03/22 08:00 Temperature 36.4 C L Pulse Rate 70 73 Respiratory Rate 14 Blood Pressure 117/60 Pulse Oximetry 100 Oxygen Delivery Intake/Output Intake/Output: Intake & Output 07/31/22 08/01/22 08/02/22 08/03/22 23:59 23:59 23:59 23:59 Intake Total 1100 240 Output Total 1 Balance 1100 240 -1 Meds/Results Medications: Active Medications Generic Name Dose Route Start Last Admin Trade Name Freq PRN Reason Stop Dose Admin Acetaminophen 650 mg 08/01/22 22:45 08/03/22 07:53 Acetaminophen 325 Mg Tablet PO 650 mg Q6H PRN Administration Mild Pain (1-3) or Fever Alprazolam 0.5 mg 08/02/22 21:00 08/02/22 20:37 Alprazolam (*Crx) 0.5 Mg Tablet PO 0.5 mg HS MAY Administration Apixaban 5 mg 08/02/22 12:00 08/03/22 08:14 Apixaban 5 Mg Tablet PO 5 mg Q12HR MAY Administration Aspirin 81 mg 08/02/22 08:00 08/03/22 08:15 Aspirin 81 Mg Chewable Tablet PO 81 mg DAILY@0800 MAY Administration A
--- NOTE | 2022-08-03 11:00 | PM.DS ---
DS: Admitting Diagnosis Discharge Date 08/03/22 Admitting Diagnosis Chest pain DS: Discharge Diagnosis Discharge Diagnosis (1) Chest pain: Code(s): R07.9 - Chest pain, unspecified Status: Acute (2) Hypotension: Code(s): I95.9 - Hypotension, unspecified Status: Acute (3) Elevated troponin: Code(s): R77.8 - Other specified abnormalities of plasma proteins Status: Acute (4) Abdominal pain: Code(s): R10.9 - Unspecified abdominal pain Status: Acute (5) Atrial fibrillation with rapid ventricular response: Code(s): I48.91 - Unspecified atrial fibrillation Status: Acute (6) Nonischemic cardiomyopathy: Code(s): I42.8 - Other cardiomyopathies Status: Acute (7) Heart failure with reduced ejection fraction: Code(s): I50.20 - Unspecified systolic (congestive) heart failure Status: Acute (8) Type 2 diabetes mellitus: Code(s): E11.9 - Type 2 diabetes mellitus without complications Status: Acute DS: Summary Hospital Course Reason for hospitalization: 72yo female with CHF, DM and ELIESER here for chest pain and found to have soft BP. Please see H&P for details. Hospital Course: Patient again presents with chest pain.? Chest x-ray was clear.? Troponins elevated but are essentially trending downward since last admission.? Patient had a recent normal left heart catheterization last month making coronary disease extremely unlikely.? Unclear if this is acid reflux related.? Consider anxiety.? Gallbladder is absent but consider also gastritis.? We considered demand ischemia from hypotension or from AFib/RVR but blood pressure normal and in NSR when patient again complained of chest pain making this less likely.? Cardiology was consulted and appreciate their input. Patient's blood pressure was soft in the emergency room.?She had AFib with RVR and was treated with diltiazem which contributed to her low blood pressure.? Home medications were adjusted. Patient with persistent abdominal pain.? She is currently on omeprazole and Carafate.? Abdominal pain could be related to her medications.? CT of the abdomen pelvis on 07/25/2022 did show mild distal sigmoid and rectal wall edema. We repeated CT of the abdomen pelvis which showed no acute findings except 1cm right kidney mass. CT repeated with contrast shownig that this is a right renal hemorrhagic cyst. Patient was in AFib RVR on admission which could have been contributing to her chest pain.? She was on diltiazem and metoprolol and sotalol last admission but medications were simplified to just metoprolol XL and decreased her to 50mg daily.? We resumed metoprolol 50 mg daily and add losartan which she tolerated. Entresto stopped. No recurrence of the chest pain. Patient overall did well and was able to be discharged on 08/03/22. Status at Discharge Cognitive/behavioral status at discharge: stable Time Spent with Patient Time attestation: Total time spent providing and/or coordinating discharge services: 35 minutes Time spent: Greater than 30 minutes Exam Narrative: AF 97.5 117/60 70 14 100% ra Gen - NARD Chest - CTA bilaterally, nml RR CV - RRR S1/S2 Abd - soft. obese, mild mid-abdominal pain Ext - trace pedal edema (mostly in feet) Psych - Nml mood and affect Skin - Warm and dry DS: Data Data Completed and Pending Labs on day of discharge: Labs from last 24 hours 08/03/22 08/03/22 08/03/22 04:33 04:33 04:33 WBC 4.9 RBC 2.65 L Hgb 9.4 L Hct 29.6 L MCV 111.7 H MCH 35.5 H MCHC 31.8 L RDW 16.4 H Plt Count 208 MPV 13.0 H Sodium 139 Potassium 3.8 Chloride 112 H Carbon Dioxide 20 L Anion Gap 7 L BUN 11 Creatinine 1.10 H Estim Creat Clear Calc 49 Estimated GFR 49 L Glucose 72 Calcium 8.2 L Total Bilirubin 0.5 AST 47 H ALT 27 Alkaline Phosphatase 61 Total Protein 5.0 L Albumin 2.4
[2022-08-03] MEDS: LOSARTAN POTASSIUM 12.5 MG TABLET PO (11:24)
[2022-08-03 12:03] LABS: EDCOVIDSCREEN Negative (Negative)
== END 2022-08-03 18:35 | DRG 312 ==
LOC: ANHED 16:18 → ANHIMU 08-02 00:40
PROVIDERS: Admitting Provider Family Medicine; Emergency Provider Emergency Medicine; Visit Provider Internal Medicine
DX: I95.2 Hypotension due to drugs (principal); I13.0 Hypertensive heart and chronic kidney disease with heart failure and stage 1 through stage 4 chronic kidney disease, or unspecified chronic kidney disease; I50.22 Chronic systolic (congestive) heart failure; E46 Unspecified protein-calorie malnutrition; I42.8 Other cardiomyopathies; I48.0 Paroxysmal atrial fibrillation; R07.89 Other chest pain; R77.8 Other specified abnormalities of plasma proteins; E11.22 Type 2 diabetes mellitus with diabetic chronic kidney disease; D64.9 Anemia, unspecified; N18.9 Chronic kidney disease, unspecified; Z95.0 Presence of cardiac pacemaker; E66.01 Morbid (severe) obesity due to excess calories; Z68.39 Body mass index [BMI] 39.0-39.9, adult; R10.9 Unspecified abdominal pain; G47.33 Obstructive sleep apnea (adult) (pediatric); N28.1 Cyst of kidney, acquired; M35.00 Sjogren syndrome, unspecified; Z20.822 Contact with and (suspected) exposure to COVID-19; Z66 Do not resuscitate; Z86.16 Personal history of COVID-19; Z74.01 Bed confinement status; I25.10 Atherosclerotic heart disease of native coronary artery without angina pectoris; Z85.3 Personal history of malignant neoplasm of breast; Z90.13 Acquired absence of bilateral breasts and nipples; Z90.49 Acquired absence of other specified parts of digestive tract; Z90.710 Acquired absence of both cervix and uterus; Z79.01 Long term (current) use of anticoagulants; T46.1X5A Adverse effect of calcium-channel blockers, initial encounter; T50.995A Adverse effect of other drugs, medicaments and biological substances, initial encounter
CPT/HCPCS: 36415; 71045; 74170; 74176; 80053; 82533; 83690; 84484; 85025; 85027; 85055; 85610; 85730; 87426; 93005; 96361; 96374; 99291; A9270; C9803; J0131; J7030; Q9967; U0003; U0005